=== PATIENT | male | born 1935 | race Caucasian/White ===

== ENCOUNTER 2017-01-30 21:59 | Emergency (ER) | payer MEDICARE, OTHER ==
--- NOTE | 2017-01-30 22:33 | ED ---
SOB HPI - General Chief Complaint: Shortness of Breath Stated Complaint: DIBx3 Time Seen by Provider: 01/30/17 22:15 Source: patient Mode of arrival: wheelchair Limitations: no limitations - History of Present Illness Initial Comments: This patient is an 81-year-old man brought to be evaluated for worsening of shortness of breath and dyspnea on exertion. The patient states that he has had symptoms for quite some time but it really is worsening over the past 3 days. The patient states that he has not been able to sleep well at night, and he has been having to get up after about 2-3 hours sit up in his chair, and is then unable to get back to sleep. The patient is denying any associated symptoms. He does have a bit of baseline cough with just a little bit of yellowish sputum. He has not had any fever or chills, chest pain, palpitations or syncope, diaphoresis, nausea or vomiting. Patient has not had a change in bowel movements including no bright red or dark tarry stools. No change in urination, no leg pain or swelling. MD Complaint: shortness of breath Onset/Timin -: days(s) Consistency: constant Improves With: oxygen Worsens With: nothing Known History Of: COPD Associated Symptoms: denies other symptoms Treatments Prior to Arrival: bronchodilator - Related Data Home Medications Medication Instructions Recorded Confirmed Albuterol Inhaler [Ventolin Hfa 1 - 2 puff INHALATION RT-Q6H PRN 01/30/17 Inhaler] Aspirin 325 mg PO DAILY 01/30/17 01/30/17 Atenolol 25 mg PO DAILY 01/30/17 01/30/17 Cholecalciferol [Vitamin D3] 4,000 unit PO DAILY 01/30/17 01/30/17 Lisinopril [Prinivil] 5 mg PO DAILY 01/30/17 01/30/17 Nitroglycerin Sl Tabs [Nitrostat] 0.4 mg SUBLINGUAL Q5M PRN 01/30/17 01/30/17 Simvastatin [Zocor] 20 mg PO HS 01/30/17 01/30/17 Previous Rx's Medication Instructions Recorded Furosemide [Lasix] 20 mg PO DAILY #10 tab 01/31/17 Ipratropium-Albuterol Nebulize 3 ml INHALATION Q6H #50 neb 01/31/17 [Duoneb 0.5 mg-3 mg/3 ml Soln] predniSONE 60 mg PO DAILY #30 tab 01/31/17 Allergies Allergy/AdvReac Type Severity Reaction Status Date / Time No Known Allergies Allergy Verified 01/30/17 22:49 Review of Systems ROS Statement: Those systems with pertinent positive or pertinent negative responses have been documented in the HPI. ROS Other: All systems not noted in ROS Statement are negative. Constitutional: Denies: fever, chills Respiratory: Reports: cough, dyspnea, wheezes. Denies: hemoptysis, stridor Cardiovascular: Reports: dyspnea on exertion. Denies: chest pain, palpitations , orthopnea, edema, syncope Gastrointestinal: Denies: abdominal pain, vomiting, diarrhea, melena, hematochezia Genitourinary: Denies: dysuria, hematuria Musculoskeletal: Denies: back pain Skin: Denies: rash Neurological: Denies: headache, weakness, numbness Past Medical History Past Medical History: COPD, Hyperlipidemia, Hypertension, Myocardial Infarction (HI) Additional Past Medical History / Comment(s): shingles History of Any Multi-Drug Resistant Organisms: None Reported Past Surgical History: Heart Catheterization With Stent Past Psychological History: No Psychological Hx Reported Smoking Status: Former smoker Past Alcohol Use History: None Reported Past Drug Use History: None Reported General Exam Limitations: no limitations General appearance: alert, in no apparent distress, cachectic Head exam: Present: atraumatic, normocephalic Eye exam: Present: normal appearance. Absent: scleral icterus, conjunctival injection ENT exam: Present: normal oropharynx Neck exam: Present: normal inspection, full ROM Respiratory exam: Present: wheezes (Trace of end expiratory wheeze), rales ( Bilateral bases). Absent: respiratory distress, rhonchi, stridor, accessory muscle use, decreased breath sounds, prolonged expiratory Cardiovascular Exam: Present: regular rate, normal rhythm, normal heart sounds. Absent: systolic murmur, diastolic murmur, rubs, gallop GI/Abdominal exam: Present: soft. Absent: distended, tenderness, guarding, rebound, mass Extremities exam: Present: normal inspection, normal capillary refill. Absent: pedal edema, calf tenderness Back exam: Present: normal inspection Neurological exam: Present: alert Skin exam: Present: warm, dry, intact, normal color. Absent: rash Course Vital Signs 01/30/17 22:05 Temperature 96.8 F L Pulse Rate 85 Respiratory 24 Rate Blood Pressure 132/74 O2 Sat by Pulse 96 Oximetry Medical Decision Making - Lab Data Result diagrams: 01/30/17 22:36 01/30/17 22:36 Lab Results 01/30/17 01/30/17 01/30/17 Range/Units 22:36 22:36 22:36 WBC 7.2 (3.8-10.6) k/uL RBC 4.29 L (4.30-5.90) m/uL Hgb 13.6 (13.0-17.5) gm/dL Hct 41.1 (39.0-53.0) % MCV 95.8 (80.0-100.0) fL MCH 31.7 (25.0-35.0) pg MCHC 33.1 (31.0-37.0) g/dL RDW 12.9 (11.5-15.5) % Plt Count 356 (150-450) k/uL Neutrophils % 64 % Lymphocytes % 17 % Monocytes % 11 % Eosinophils % 4 % Basophils % 1 % Neutrophils # 4.6 (1.3-7.7) k/uL Lymphocytes # 1.2 (1.0-4.8) k/uL Monocytes # 0.8 (0-1.0) k/uL Eosinophils # 0.3 (0-0.7) k/uL Basophils # 0.0 (0-0.2) k/uL PT 10.4 (9.0-12.0) sec INR 1.0 (<1.1) APTT 25.1 (22.0-30.0) sec D-Dimer 0.81 H (<0.60) mg/L FEU Sample Site ABG pH (7.35-7.45) ABG pCO2 (35-45) mmHg ABG pO2 (83-108) mmHg ABG HCO3 (21-25) mmol/L ABG Total CO2 (19-24) mmol/L ABG O2 Saturation (94-97) % ABG Base Excess mmol/L FiO2 % Sodium 144 (137-145) mmol/L Potassium 4.2 (3.5-5.1) mmol/L Chloride 101 (98-107) mmol/L Carbon Dioxide 32 H (22-30) mmol/L Anion Gap 11 mmol/L BUN 21 H (9-20) mg/dL Creatinine 1.30 H (0.66-1.25) mg/dL Est GFR (MDRD) Af Amer >60 (>60 ml/min/1.73 sqM) Est GFR (MDRD) Non-Af 53 (>60 ml/min/1.73 sqM) Glucose 97 (74-99) mg/dL Calcium 8.9 (8.4-10.2) mg/dL Total Bilirubin 0.6 (0.2-1.3) mg/dL AST 26 (17-59) U/L ALT 29 (21-72) U/L Alkaline Phosphatase 57 (38-126) U/L Troponin I (0.000-0.034) ng/mL NT-Pro-B Natriuret Pep pg/mL Total Protein 6.7 (6.3-8.2) g/dL Albumin 4.0 (3.5-5.0) g/dL Influenza Type A RNA (Not Detectd) Influenza Type B (PCR) (Not Detectd) 01/30/17 01/30/17 01/30/17 Range/Units 22:36 22:36 22:36 WBC (3.8-10.6) k/uL RBC (4.30-5.90) m/uL Hgb (13.0-17.5) gm/dL Hct (39.0-53.0) % MCV (80.0-100.0) fL MCH (25.0-35.0) pg MCHC (31.0-37.0) g/dL RDW (11.5-15.5) % Plt Count (150-450) k/uL Neutrophils % % Lymphocytes % % Monocytes % % Eosinophils % % Basophils % % Neutrophils # (1.3-7.7) k/uL Lymphocytes # (1.0-4.8) k/uL Monocytes # (0-1.0) k/uL Eosinophils # (0-0.7) k/uL Basophils # (0-0.2) k/uL PT (9.0-12.0) sec INR (<1.1) APTT (22.0-30.0) sec D-Dimer (<0.60) mg/L FEU Sample Site ABG pH (7.35-7.45) ABG pCO2 (35-45) mmHg ABG pO2 (83-108) mmHg ABG HCO3 (21-25) mmol/L ABG Total CO2 (19-24) mmol/L ABG O2 Saturation (94-97) % ABG Base Excess mmol/L FiO2 % Sodium (137-145) mmol/L Potassium (3.5-5.1) mmol/L Chloride (98-107) mmol/L Carbon Dioxide (22-30) mmol/L Anion Gap mmol/L BUN (9-20) mg/dL Creatinine (0.66-1.25) mg/dL Est GFR (MDRD) Af Amer (>60 ml/min/1.73 sqM) Est GFR (MDRD) Non-Af (>60 ml/min/1.73 sqM) Glucose (74-99) mg/dL Calcium (8.4-10.2) mg/dL Total Bilirubin (0.2-1.3) mg/dL AST (17-59) U/L ALT (21-72) U/L Alkaline Phosphatase (38-126) U/L Troponin I <0.012 (0.000-0.034) ng/mL NT-Pro-B Natriuret Pep 818 pg/mL Total Protein (6.3-8.2) g/dL Albumin (3.5-5.0) g/dL Influenza Type A RNA Not Detected (Not Detectd) Influenza Type B (PCR) Not Detected (Not Detectd) 01/30/17 Range/Units 23:07 WBC (3.8-10.6) k/uL RBC (4.30-5.90) m/uL Hgb (13.0-17.5) gm/dL Hct (39.0-53.0) % MCV (80.0-100.0) fL MCH (25.0-35.0) pg MCHC (31.0-37.0) g/dL RDW (11.5-15.5) % Plt Count (150-450) k/uL Neutrophils % % Lymphocytes % % Monocytes % % Eosinophils % % Basophils % % Neutrophils # (1.3-7.7) k/uL Lymphocytes # (1.0-4.8) k/uL Monocytes # (0-1.0) k/uL Eosinophils # (0-0.7) k/uL Basophils # (0-0.2) k/uL PT (9.0-12.0) sec INR (<1.1) APTT (22.0-30.0) sec D-Dimer (<0.60) mg/L FEU Sample Site R RADIAL ABG pH 7.46 H (7.35-7.45) ABG pCO2 39 (35-45) mmHg ABG pO2 102 (83-108) mmHg ABG HCO3 28 H (21-25) mmol/L ABG Total CO2 29 H (19-24) mmol/L ABG O2 Saturation 98.0 H (94-97) % ABG Base Excess 3.9 mmol/L FiO2 28 % Sodium (137-145) mmol/L Potassium (3.5-5.1) mmol/L Chloride (98-107) mmol/L Carbon Dioxide (22-30) mmol/L Anion Gap mmol/L BUN (9-20) mg/dL Creatinine (0.66-1.25) mg/dL Est GFR (MDRD) Af Amer (>60 ml/min/1.73 sqM) Est GFR (MDRD) Non-Af (>60 ml/min/1.73 sqM) Glucose (74-99) mg/dL Calcium (8.4-10.2) mg/dL Total Bilirubin (0.2-1.3) mg/dL AST (17-59) U/L ALT (21-72) U/L Alkaline Phosphatase (38-126) U/L Troponin I (0.000-0.034) ng/mL NT-Pro-B Natriuret Pep pg/mL Total Protein (6.3-8.2) g/dL Albumin (3.5-5.0) g/dL Influenza Type A RNA (Not Detectd) Influenza Type B (PCR) (Not Detectd) - EKG Data -: EKG Interpreted by Me EKG shows normal: sinus rhythm (With PVC), intervals (Normal), QRS complexes ( Normal) Rate: normal (Rate approximate 74 bpm) Interpretation: other (Biatrial enlargement) Disposition Clinical Impression: Acute exacerbation of chronic obstructive airways disease Disposition: HOME SELF-CARE Condition: Fair Instructions: COPD (Chronic Obstructive Pulmonary Disease) (ED) Prescriptions: Furosemide [Lasix] 20 mg PO DAILY #10 tab Ipratropium-Albuterol Nebulize [Duoneb 0.5 mg-3 mg/3 ml Soln] 3 ml INHALATION Q6H #50 neb predniSONE 60 mg PO DAILY #30 tab Referrals: Shorty Desai MD [Primary Care Provider] - 1-2 days James Barr MD [STAFF PHYSICIAN] - 1-2 days
[2017-01-30 22:57] LABS: Basophils % (A) 1 %; CHCM 33.5; Eosinophils # (A) 0.3 k/uL (0-0.7); Eosinophils % (A) 4 %; HCT 41.1 % (39.0-53.0); HGB 13.6 gm/dL (13.0-17.5); Luc # (Auto) 0.24; Luc % (Auto) 3; Lymphocytes # (A) 1.2 k/uL (1.0-4.8); Lymphocytes % (A) 17 %; MCH 31.7 pg (25.0-35.0); MCHC 33.1 g/dL (31.0-37.0); MCV 95.8 fL (80.0-100.0); Mean Platelet Volume 6.8; Monocytes # (A) 0.8 k/uL (0-1.0); Monocytes % (A) 11 %; Neutrophils # (A) 4.6 k/uL (1.3-7.7); Neutrophils % (A) 64 %; RBC 4.29 m/uL (4.30-5.90); RDW 12.9 % (11.5-15.5); WBC 7.2 k/uL (3.8-10.6)
[2017-01-30 23:06] LABS: ALT 29 U/L (21-72); AST 26 U/L (17-59); Alkaline Phosphatase 57 U/L (38-126); Anion Gap 11 mmol/L; Blood Urea Nitrogen 21 mg/dL (9-20); Calcium 8.9 mg/dL (8.4-10.2); Carbon Dioxide 32 mmol/L (22-30); Chloride 101 mmol/L (98-107); Glucose 97 mg/dL (74-99); Non-African American GFR(MDRD) 53 (>60 ml/min/1.73 sqM); Potassium 4.2 mmol/L (3.5-5.1); Sodium 144 mmol/L (137-145); Total Bilirubin 0.6 mg/dL (0.2-1.3); Total Protein 6.7 g/dL (6.3-8.2)
[2017-01-30 23:10] LABS: Partial Thromboplastin Time 25.1 sec (22.0-30.0); Prothrombin Time 10.4 sec (9.0-12.0)
--- NOTE | 2017-01-30 23:12 | XR ---
EXAMINATION TYPE: XR chest 2V DATE OF EXAM: 01/30/2017 11:00 PM COMPARISON: 08/20/2010 HISTORY: Difficulty breathing TECHNIQUE: Frontal and lateral views of the chest are obtained. FINDINGS: There is pulmonary hyperinflation and flattening of the diaphragm. Heart size is normal. T here are no hilar masses. Lung apices are clear. There are chest leads. There is osteopenia. IMPRESSION: COPD. No acute lung disease. No change.
[2017-01-30 23:15] LABS: ABG HCO3 28 mmol/L (21-25); ABG PCO2 39 mmHg (35-45); ABG PH 7.46 (7.35-7.45); ABG PO2 102 mmHg (83-108); ABG TCO2 29 mmol/L (19-24)
[2017-01-30 23:16] LABS: ABG Base Excess 3.9 mmol/L
[2017-01-31] MEDS ORDERED: methylPREDNISolone SOD SUCCI 125 MG/2 ML VIAL IV STA (00:12)
[2017-01-31] MEDS ORDERED: FUROSEMIDE 20 MG TAB PO STA (00:23)
[2017-01-31 00:54] VITALS: BP 169/74; PULSE 70; RESP 22; TEMP 97.4
== END 2017-01-31 00:57 | disposition home or self-care (01) ==
LOC: EC 21:59
DX: J44.1 Chronic obstructive pulmonary disease with (acute) exacerbation (principal); I10 Essential (primary) hypertension; E78.5 Hyperlipidemia, unspecified; I25.2 Old myocardial infarction; Z87.891 Personal history of nicotine dependence; Z79.82 Long term (current) use of aspirin; Z79.899 Other long term (current) drug therapy; Z95.5 Presence of coronary angioplasty implant and graft
CPT/HCPCS: 99285 ×2; 96374 ×2; 36415; 36600; 93005; 85379; 83880; 80053; 82805; 84484; 85025; 85610; 85730; 87502; 71020; J2930

== ENCOUNTER 2017-05-24 18:25 | Inpatient (IN) | payer MEDICARE, OTHER ==
--- NOTE | 2017-05-24 18:40 | ED ---
General Adult HPI - General Chief complaint: Shortness of Breath Stated complaint: DINESH Time Seen by Provider: 05/24/17 18:40 Source: patient, RN notes reviewed, old records reviewed Mode of arrival: wheelchair Limitations: no limitations - History of Present Illness Initial comments: This is a 81-year-old male to the ER for evaluation. This patient presents for evaluation regarding shortness of breath, patient has shortness of breath with cough and congestion, exertional shortness of breath. History of COPD history of heart disease. Patient denies recent consultation no fevers no chest pain. Patient states his power went out last night and he was unable to use his oxygen which she does use 24 hours a day he woke up in severe respiratory distress and shortness of breath with proctored symptoms have improved mildly but not resolved. Patient is doing. She rates the medications as directed, mild improvement - Related Data Home Medications Medication Instructions Recorded Confirmed Albuterol Inhaler [Ventolin Hfa 1 - 2 puff INHALATION RT-Q6H PRN 01/30/17 Inhaler] Aspirin 325 mg PO DAILY 01/30/17 05/24/17 Atenolol 12.5 mg PO DAILY 01/30/17 05/24/17 Cholecalciferol [Vitamin D3] 2,000 unit PO DAILY 01/30/17 05/24/17 Lisinopril [Prinivil] 5 mg PO DAILY 01/30/17 05/24/17 Nitroglycerin Sl Tabs [Nitrostat] 0.4 mg SUBLINGUAL Q5M PRN 01/30/17 05/24/17 Simvastatin [Zocor] 20 mg PO HS 01/30/17 05/24/17 Budesonide [Pulmicort] 0.5 mg INHALATION RT-BID PRN 05/24/17 05/24/17 Fluticasone Nasal [place] [Flonase 1 spray EA NOSTRIL DAILY PRN 05/24/17 05/24/17 Nasal [place]] Formoterol Fumarate [Perforomist] 20 mcg INHALATION RT-BID PRN 05/24/17 05/24/17 Loratadine [Claritin] 10 mg PO DAILY PRN 05/24/17 05/24/17 Umeclidinium [place] [Incruse 1 puff INHALATION RT-DAILY PRN 05/24/17 05/24/17 Ellipta] Allergies Allergy/AdvReac Type Severity Reaction Status Date / Time No Known Allergies Allergy Verified 05/24/17 19:00 Review of Systems ROS Statement: Those systems with pertinent positive or pertinent negative responses have been documented in the HPI. ROS Other: All systems not noted in ROS Statement are negative. Past Medical History Past Medical History: COPD, Hyperlipidemia, Hypertension, Myocardial Infarction (PR) Additional Past Medical History / Comment(s): shingles History of Any Multi-Drug Resistant Organisms: None Reported Past Surgical History: Heart Catheterization With Stent Past Psychological History: No Psychological Hx Reported Smoking Status: Former smoker Past Alcohol Use History: None Reported Past Drug Use History: None Reported General Exam Limitations: no limitations General appearance: alert, in no apparent distress Head exam: Present: atraumatic, normocephalic, normal inspection Eye exam: Present: normal appearance, PERRL, EOMI. Absent: scleral icterus, conjunctival injection, periorbital swelling ENT exam: Present: normal exam, mucous membranes moist Neck exam: Present: normal inspection. Absent: tenderness, meningismus, lymphadenopathy Respiratory exam: Present: normal lung sounds bilaterally, respiratory distress , wheezes, accessory muscle use, decreased breath sounds, prolonged expiratory. Absent: rales, rhonchi, stridor Cardiovascular Exam: Present: regular rate, normal rhythm, normal heart sounds. Absent: systolic murmur, diastolic murmur, rubs, gallop, clicks GI/Abdominal exam: Present: soft, normal bowel sounds. Absent: distended, tenderness, guarding, rebound, rigid Extremities exam: Present: normal inspection, full ROM, normal capillary refill. Absent: tenderness, pedal edema, joint swelling, calf tenderness Back exam: Present: normal inspection Neurological exam: Present: alert, oriented X3, CN II-XII intact Psychiatric exam: Present: normal affect, normal mood Skin exam: Present: warm, dry, intact, normal color. Absent: rash Course Vital Signs 05/24/17 05/24/17 05/24/17 18:27 19:00 19:37 Temperature 97.0 F L Pulse Rate 67 66 62 Respiratory 18 Rate Blood Pressure 88/53 100/57 O2 Sat by Pulse 90 L 100 Oximetry 05/24/17 19:54 Temperature Pulse Rate 60 Respiratory Rate Blood Pressure O2 Sat by Pulse Oximetry - Reevaluation(s) Reevaluation #1: 05/24/17 19:34 Patient does have great results with prolonged breathing treatment Reevaluation #2: 05/24/17 20:20 Patient continues to deny any chest pain, admitted to chest tightness upon arrival to ER EKG Findings - EKG Comments: EKG Findings:: EKG shows sinus rhythm rate of 60, DC 166, QRS 92, QTc 442 Medical Decision Making - Medical Decision Making 81 male in the ER for evaluation regarding severe shortness of breath at night with diaphoresis. Patient does have elevated troponin non-ST elevated PR and as well as COPD with hypoxia, patient will be admitted for cardiopulmonary resuscitation and hemodynamic monitoring. - Lab Data Result diagrams: 05/24/17 18:53 05/24/17 18:53 Lab Results 05/24/17 05/24/17 05/24/17 Range/Units 18:53 18:53 18:53 WBC 11.7 H (3.8-10.6) k/uL RBC 4.11 L (4.30-5.90) m/uL Hgb 13.4 (13.0-17.5) gm/dL Hct 39.9 (39.0-53.0) % MCV 97.0 (80.0-100.0) fL MCH 32.5 (25.0-35.0) pg MCHC 33.5 (31.0-37.0) g/dL RDW 12.9 (11.5-15.5) % Plt Count 380 (150-450) k/uL Neutrophils % 82 % Lymphocytes % 10 % Monocytes % 6 % Eosinophils % 0 % Basophils % 1 % Neutrophils # 9.6 H (1.3-7.7) k/uL Lymphocytes # 1.2 (1.0-4.8) k/uL Monocytes # 0.7 (0-1.0) k/uL Eosinophils # 0.0 (0-0.7) k/uL Basophils # 0.1 (0-0.2) k/uL PT (9.0-12.0) sec INR (<1.1) APTT (22.0-30.0) sec Sodium 142 (137-145) mmol/L Potassium 4.9 (3.5-5.1) mmol/L Chloride 100 (98-107) mmol/L Carbon Dioxide 30 (22-30) mmol/L Anion Gap 12 mmol/L BUN 32 H (9-20) mg/dL Creatinine 0.98 (0.66-1.25) mg/dL Est GFR (MDRD) Af Amer >60 (>60 ml/min/1.73 sqM) Est GFR (MDRD) Non-Af >60 (>60 ml/min/1.73 sqM) Glucose 113 H (74-99) mg/dL Calcium 9.7 (8.4-10.2) mg/dL Magnesium 2.1 (1.6-2.3) mg/dL Total Bilirubin 0.8 (0.2-1.3) mg/dL AST 113 H (17-59) U/L ALT 73 H (21-72) U/L Alkaline Phosphatase 53 (38-126) U/L Total Creatine Kinase 428 H (55-170) U/L CK-MB (CK-2) 61.6 H* (0.0-2.4) ng/mL CK-MB (CK-2) Rel Index 14.4 Troponin I 4.540 H* (0.000-0.034) ng/mL NT-Pro-B Natriuret Pep pg/mL Total Protein 6.9 (6.3-8.2) g/dL Albumin 4.2 (3.5-5.0) g/dL 05/24/17 05/24/17 Range/Units 18:53 18:53 WBC (3.8-10.6) k/uL RBC (4.30-5.90) m/uL Hgb (13.0-17.5) gm/dL Hct (39.0-53.0) % MCV (80.0-100.0) fL MCH (25.0-35.0) pg MCHC (31.0-37.0) g/dL RDW (11.5-15.5) % Plt Count (150-450) k/uL Neutrophils % % Lymphocytes % % Monocytes % % Eosinophils % % Basophils % % Neutrophils # (1.3-7.7) k/uL Lymphocytes # (1.0-4.8) k/uL Monocytes # (0-1.0) k/uL Eosinophils # (0-0.7) k/uL Basophils # (0-0.2) k/uL PT 11.2 (9.0-12.0) sec INR 1.1 (<1.1) APTT 25.3 (22.0-30.0) sec Sodium (137-145) mmol/L Potassium (3.5-5.1) mmol/L Chloride (98-107) mmol/L Carbon Dioxide (22-30) mmol/L Anion Gap mmol/L BUN (9-20) mg/dL Creatinine (0.66-1.25) mg/dL Est GFR (MDRD) Af Amer (>60 ml/min/1.73 sqM) Est GFR (MDRD) Non-Af (>60 ml/min/1.73 sqM) Glucose (74-99) mg/dL Calcium (8.4-10.2) mg/dL Magnesium (1.6-2.3) mg/dL Total Bilirubin (0.2-1.3) mg/dL AST (17-59) U/L ALT (21-72) U/L Alkaline Phosphatase (38-126) U/L Total Creatine Kinase (55-170) U/L CK-MB (CK-2) (0.0-2.4) ng/mL CK-MB (CK-2) Rel Index Troponin I (0.000-0.034) ng/mL NT-Pro-B Natriuret Pep 4680 pg/mL Total Protein (6.3-8.2) g/dL Albumin (3.5-5.0) g/dL - Radiology Data Radiology results: report reviewed (Chest x-ray is negative for acute disease), image reviewed Critical Care Time Critical Care Time: Yes Total Critical Care Time: 31 Disposition Clinical Impression: NSTEMI (non-ST elevated myocardial infarction), COPD with hypoxia Disposition: ADMITTED IP TO THIS HOSP Condition: Serious Referrals: Shorty Desai MD [Primary Care Provider] - 1-2 days
[2017-05-24] MEDS ORDERED: ALBUTEROL NEBULIZED 2.5 MG/3 ML INHALATION STA (18:41)
[2017-05-24] MEDS ORDERED: methylPREDNISolone SOD SUCCI 125 MG/2 ML VIAL IV STA (18:41)
[2017-05-24] MEDS ORDERED: SODIUM CHLORIDE 0.9% 1,000 ML IV STA (18:41)
[2017-05-24] MEDS ORDERED: IPRATROPIUM 0.5 MG/2.5 ML NEBU INHALATION STA (18:41)
[2017-05-24 19:15] LABS: Basophils # (A) 0.1 k/uL (0-0.2); Basophils % (A) 1 %; CH 32.5; CHCM 33.6; Eosinophils % (A) 0 %; HCT 39.9 % (39.0-53.0); HDW 2.32; HGB 13.4 gm/dL (13.0-17.5); Luc # (Auto) 0.16; Luc % (Auto) 1; Lymphocytes # (A) 1.2 k/uL (1.0-4.8); Lymphocytes % (A) 10 %; MCH 32.5 pg (25.0-35.0); MCHC 33.5 g/dL (31.0-37.0); Mean Platelet Volume 7.9; Monocytes # (A) 0.7 k/uL (0-1.0); Monocytes % (A) 6 %; Neutrophils # (A) 9.6 k/uL (1.3-7.7); Neutrophils % (A) 82 %; RBC 4.11 m/uL (4.30-5.90); RDW 12.9 % (11.5-15.5); WBC 11.7 k/uL (3.8-10.6); WBC (Perox) 11.67
[2017-05-24 19:24] LABS: ALT 73 U/L (21-72); AST 113 U/L (17-59); Alkaline Phosphatase 53 U/L (38-126); Anion Gap 12 mmol/L; Blood Urea Nitrogen 32 mg/dL (9-20); Calcium 9.7 mg/dL (8.4-10.2); Carbon Dioxide 30 mmol/L (22-30); Chloride 100 mmol/L (98-107); Glucose 113 mg/dL (74-99); Magnesium 2.1 mg/dL (1.6-2.3); Non-African American GFR(MDRD) >60 (>60 ml/min/1.73 sqM); Potassium 4.9 mmol/L (3.5-5.1); Sodium 142 mmol/L (137-145); Total Bilirubin 0.8 mg/dL (0.2-1.3); Total Protein 6.9 g/dL (6.3-8.2)
--- NOTE | 2017-05-24 19:29 | XR ---
EXAMINATION TYPE: XR chest 1V portable DATE OF EXAM: 05/24/2017 COMPARISON: 01/30/2017 HISTORY: Chest pain TECHNIQUE: Single frontal view of the chest is obtained. FINDINGS: There is no heart failure nor pneumonic infiltrate. Thoracic aorta is atheromatous. There is mild pulmonary hyperinflation. Heart size is normal. Bony thorax appears intact. IMPRESSION: COPD. No acute lung disease. No change.
[2017-05-24 19:33] LABS: INR 1.1 (<1.1); Partial Thromboplastin Time 25.3 sec (22.0-30.0); Prothrombin Time 11.2 sec (9.0-12.0)
[2017-05-24 19:51] LABS: Creatine Kinase MB 61.6 ng/mL (0.0-2.4); Troponin I 4.54 ng/mL (0.000-0.034)
[2017-05-24] MEDS ORDERED: NITROGLYCERIN SL TABS 0.4 MG TAB SUBLINGUAL PRN (19:58)
[2017-05-24] MEDS ORDERED: HEPARIN SODIUM,PORCINE 5,000 UNIT/ML 1 ML VIAL IV ONE (19:58)
[2017-05-24] MEDS ORDERED: ASPIRIN 81 MG CHEW PO STA (20:13)
[2017-05-24] MEDS ORDERED: HEPARIN SODIUM,PORCINE 5,000 UNIT/ML 1 ML VIAL IV PRN (20:13)
[2017-05-24] MEDS ORDERED: IPRATROPIUM-ALBUTEROL 3 ML NEB INHALATION STA (20:13)
[2017-05-24] MEDS ORDERED: SODIUM CHLORIDE 0.9% 1,000 ML IV SCH (20:15)
[2017-05-24] MEDS ORDERED: SODIUM CHLORIDE 0.9% 500 ML IV ONE (20:35)
[2017-05-24] MEDS ORDERED: SODIUM CHLORIDE 0.9% 1,000 ML IV ONE (20:35)
[2017-05-24] MEDS ORDERED: NITROGLYCERIN OINT 1 INCH/GM PACKET TOPICAL STA (20:36)
[2017-05-24] MEDS: HEPARIN SODIUM,PORCINE/D5W PMX 25,000 UNIT in DEXTROSE/WATER 1 500ML.BAG IV SCH (20:40)
[2017-05-24] MEDS ORDERED: MORPHINE SULFATE 4 MG/ML SYRINGE IVP PRN (20:50)
[2017-05-24] MEDS ORDERED: NITROGLYCERIN-D5W PMX 50 MG in DEXTROSE/WATER 1 250ML.BAG IV SCH (21:00)
[2017-05-24] MEDS ORDERED: METOPROLOL TARTRATE 25 MG TAB PO SCH (21:00)
[2017-05-25] MEDS ORDERED: NITROGLYCERIN OINT 1 INCH/GM PACKET TOPICAL SCH
[2017-05-25] MEDS: methylPREDNISolone SOD SUCCI 125 MG/2 ML VIAL IV SCH ×5 (00:36→23:20)
[2017-05-25 03:16] LABS: Creatine Kinase MB 61.2 ng/mL (0.0-2.4); Troponin I 4.07 ng/mL (0.000-0.034)
[2017-05-25] MEDS: IPRATROPIUM-ALBUTEROL 3 ML NEB INHALATION PRN ×3 (04:15→19:21)
[2017-05-25 05:46] LABS: Glucose,Whole Blood 162 mg/dL (75-99)
[2017-05-25] MEDS: INSULIN LISPRO (humaLOG) 300 UNIT/3 ML VIAL SQ SCH ×4 (06:33→20:51)
[2017-05-25 07:46] LABS: Mean Platelet Volume 7.4
[2017-05-25 08:08] LABS: Cholesterol 154 mg/dL (<200); HDL Cholesterol 70 mg/dL (40-60); Triglycerides 66 mg/dL (<150)
--- NOTE | 2017-05-25 08:13 | P.CRDCN ---
History of Present Illness Consult date: 05/25/17 Requesting physician: Chapin Davis Consult reason: chest pain Chief complaint: Chest pain History of present illness: This is a pleasant 81-year-old gentleman who follows with Dr. Camarillo in the office. He has history of prior non-Q-wave [place] with stent placement in 2009, hypertension, hyperlipidemia, COPD with home oxygen use, prior nicotine use, patient still does chew tobacco, he presents to the hospital with symptoms of chest tightness. According to the patient he uses home O2, the power went out at his home he is unsure of how long he was without oxygen, he attempted to get up to hold himself up to the portable oxygen tank and shortly thereafter developed severe chest tightness. He states he was quite short of breath and became very diaphoretic. For this reason he came to the emergency room for further evaluation. Patient has been losing weight recently, he states his appetite is the same as usual. Initial EKG on presentation here showed a normal sinus rhythm with anterior lateral ST depression. Subsequent EKG performed revealed normal sinus rhythm with mild improvement in the ST depression. Chest x-ray did not reveal any acute lung disease, positive COPD. I blood cell count 11.7, hemoglobin 13.4, potassium 4.9 , BUN 32, creatinine 0.9. AST 113, ALT 73, initial troponin 4.5, subsequent troponin 4.0. BNP level 4680. The pressure on arrival here 88/50 with a heart rate in the 60s. 90% on room air. Let pressure this morning of 113/80. At the time of my examination this morning, patient is currently on IV heparin, Nitropaste, aspirin, he was also given a dose of Solu-Medrol and continues to be on IV steroids. Past Medical History Past Medical History: COPD, Hyperlipidemia, Hypertension, Myocardial Infarction ([place]) Additional Past Medical History / Comment(s): shingles Last Myocardial Infarction Date:: 2009 History of Any Multi-Drug Resistant Organisms: None Reported Past Surgical History: Heart Catheterization With Stent Additional Past Surgical History / Comment(s): stent RCA- Dr. Skinner stented Past Anesthesia/Blood Transfusion Reactions: No Reported Reaction Date of Last Stent Placement:: 2009 Past Psychological History: No Psychological Hx Reported Smoking Status: Former smoker Past Alcohol Use History: None Reported Past Drug Use History: None Reported - Past Family History Brother(s) Family Medical History: Cancer Additional Family Medical History / Comment(s): lung CA Medications and Allergies Home Medications Medication Instructions Recorded Confirmed Type Albuterol Inhaler [Ventolin Hfa 1 - 2 puff INHALATION RT-Q6H PRN 01/30/17 History Inhaler] Aspirin 325 mg PO DAILY 01/30/17 05/24/17 History Atenolol 12.5 mg PO DAILY 01/30/17 05/24/17 History Cholecalciferol [Vitamin D3] 2,000 unit PO DAILY 01/30/17 05/24/17 History Lisinopril [Prinivil] 5 mg PO DAILY 01/30/17 05/24/17 History Nitroglycerin Sl Tabs [Nitrostat] 0.4 mg SUBLINGUAL Q5M PRN 01/30/17 05/24/17 History Simvastatin [Zocor] 20 mg PO HS 01/30/17 05/24/17 History Budesonide [Pulmicort] 0.5 mg INHALATION RT-BID PRN 05/24/17 05/24/17 History Fluticasone Nasal [place] [Flonase 1 spray EA NOSTRIL DAILY PRN 05/24/17 05/24/17 History Nasal [place]] Formoterol Fumarate [Perforomist] 20 mcg INHALATION RT-BID PRN 05/24/17 History Loratadine [Claritin] 10 mg PO DAILY PRN 05/24/17 05/24/17 History Umeclidinium [place] [Incruse 1 puff INHALATION RT-DAILY PRN 05/24/17 05/24/17 History Ellipta] Allergies Allergy/AdvReac Type Severity Reaction Status Date / Time No Known Allergies Allergy Verified 05/24/17 19:00 Physical Exam Vitals: Vital Signs Temp Pulse Pulse Resp BP BP Pulse Ox 05/25/17 04:30 96.8 F L 77 26 H 113/80 95 05/25/17 04:19 88 05/25/17 04:08 92 05/24/17 23:05 96.8 F L 74 24 113/68 99 05/24/17 22:25 74 18 105/58 97 05/24/17 22:10 74 18 105/58 100 05/24/17 21:29 76 18 106/60 100 05/24/17 21:00 77 20 109/60 100 05/24/17 20:40 68 19 114/57 99 05/24/17 20:25 80 20 95/57 99 05/24/17 20:21 60 05/24/17 19:54 60 05/24/17 19:37 62 05/24/17 19:00 66 100/57 100 05/24/17 18:27 97.0 F L 67 18 88/53 90 L Intake and Output 05/24/17 05/25/17 05/25/17 22:59 06:59 14:59 Intake Total 56.853 Output Total 300 Balance -243.147 Intake: Intake, IV Titration 56.853 Amount Heparin Sodium,Porcine/ 56.853 D5w Pmx 25,000 unit In Dextrose/Water 1 500ml. bag @ 12 UNITS/KG/HR 10. 66 mls/hr IV .Q24H [facility] Rx #:[id number] Output: Urine 300 Other: Voiding Method Toilet # Voids 1 Weight 44.452 kg 44.7 kg PHYSICAL EXAMINATION: HEENT: Head is atraumatic, normocephalic. Pupils equal, round. Neck is supple. There is elevated jugular venous pressure. HEART EXAMINATION: Heart S1, S2 normal. No murmur or gallop heard. CHEST EXAMINATION: Lungs reveal diminished air entry bilaterally. ABDOMEN: Soft, nontender. Bowel sounds are heard. No organomegaly noted. EXTREMITIES: 1+ peripheral pulses with no evidence of peripheral edema and no calf tenderness noted. NEUROLOGIC patient is awake, alert and oriented -3. . Results 05/25/17 07:26 05/24/17 18:53 Cardiac Enzymes 05/24/17 05/24/17 05/25/17 Range/Units 18:53 18:53 01:39 AST 113 H (17-59) U/L CK-MB (CK-2) 61.6 H* 61.2 H* (0.0-2.4) ng/mL Troponin I 4.540 H* 4.070 H* (0.000-0.034) ng/mL Coagulation 05/24/17 05/25/17 05/25/17 Range/Units 18:53 01:39 07:26 PT 11.2 (9.0-12.0) sec APTT 25.3 36.1 H 42.9 H (22.0-30.0) sec CBC 05/24/17 05/25/17 Range/Units 18:53 07:26 WBC 11.7 H (3.8-10.6) k/uL RBC 4.11 L (4.30-5.90) m/uL Hgb 13.4 (13.0-17.5) gm/dL Hct 39.9 (39.0-53.0) % Plt Count 380 318 (150-450) k/uL Comprehensive Metabolic Panel 05/24/17 Range/Units 18:53 Sodium 142 (137-145) mmol/L Potassium 4.9 (3.5-5.1) mmol/L Chloride 100 (98-107) mmol/L Carbon Dioxide 30 (22-30) mmol/L BUN 32 H (9-20) mg/dL Creatinine 0.98 (0.66-1.25) mg/dL Glucose 113 H (74-99) mg/dL Calcium 9.7 (8.4-10.2) mg/dL AST 113 H (17-59) U/L ALT 73 H (21-72) U/L Alkaline Phosphatase 53 (38-126) U/L Total Protein 6.9 (6.3-8.2) g/dL Albumin 4.2 (3.5-5.0) g/dL Current Medications Generic Name Dose Route Start Last Admin Trade Name Freq PRN Reason Stop Dose Admin Albuterol/Ipratropium 3 ml 05/24/17 20:13 05/25/17 04:15 Duoneb 0.5 Mg-3 Mg/3 Ml Soln INHALATION 3 ml RT-QID PRN Administration Shortness Of Breath Or Wheezing Aspirin 325 mg 05/25/17 09:00 Aspirin PO DAILY SD Heparin Sodium (Porcine) 0 unit 05/24/17 20:13 Heparin IV Q6HR PRN Low PTT Protocol Heparin Sodium/Dextrose 25,000 500 mls @ 10.66 mls/hr 05/24/17 20:15 02:00 unit/ IV Solution IV 15 units/kg/hr .Q24H SD 13.33 mls/hr Protocol Titration 12 UNITS/KG/HR Insulin Human Lispro 0 unit 05/25/17 07:30 06/29/17 06:33 Humalog SQ Not Given ACHS [facility] Protocol Methylprednisolone Sodium Succinate 60 mg 05/25/17 00:00 05/25/17 06:33 Solu-Medrol IV 60 mg Q6HR SD Administration Morphine Sulfate 4 mg 05/24/17 20:50 Morphine Sulfate (Inj) IVP Q4HR PRN Pain Nitroglycerin 0.4 mg 05/24/17 19:58 Nitrostat SUBLINGUAL Q5M PRN Chest Pain Intake and Output 05/24/17 05/25/17 05/25/17 22:59 06:59 14:59 Intake Total 56.853 Output Total 300 Balance -243.147 Intake: Intake, IV Titration 56.853 Amount Heparin Sodium,Porcine/ 56.853 D5w Pmx 25,000 unit In Dextrose/Water 1 500ml. bag @ 12 UNITS/KG/HR 10. 66 mls/hr IV .Q24H [facility] Rx #:[id number] Output: Urine 300 Other: Voiding Method Toilet # Voids 1 Weight 44.452 kg 44.7 kg 05/25/17 07:26 05/24/17 18:53 EKG Interpretations (text) EKG shows normal sinus rhythm with anterior lateral ST depression. Assessment and Plan Plan: Assessment and plan #1 non-ST elevation myocardial infarction #2 known history of coronary artery disease with prior non-STEMI and stenting of the RCA in 2009 #3 hypertension #4 hyperlipidemia #5 COPD with home O2 use #6 history of nicotine dependence, still chews tobacco. #7 mildly congestive cardiac failure, BNP level 4680 #8 mildly abnormal liver enzymes, could be secondary to congestion. Plan We will continue IV heparin and Nitropaste along with aspirin. We will start the patient on a statin. Obtain stat echocardiogram with Doppler study. Most recent echocardiogram with Doppler study was performed in January of this year which revealed normal left ventricular size and function. Patient has been advised that he may need to undergo cardiac catheterization, the risks and the benefits were explained to him, his and his daughter in detail. He is willing to proceed. Further recommendations will be based on these findings and the patient's clinical course. DNP note has been reviewed, I agree with a documented findings and plan of care. Patient was seen and examined.
[2017-05-25] MEDS ORDERED: LORATADINE 10 MG TAB PO PRN (08:20)
[2017-05-25 08:28] LABS: Creatine Kinase MB 67.5 ng/mL (0.0-2.4); Troponin I 6.23 ng/mL (0.000-0.034)
[2017-05-25 08:38] LABS: Hemoglobin A1C 5.1 % (4.2-6.1)
[2017-05-25] MEDS: BUDESONIDE 0.5 MG/2 ML NEBU INHALATION PRN ×2 (08:54→19:21)
[2017-05-25] MEDS: ASPIRIN 325 MG TAB PO SCH (09:01)
[2017-05-25] MEDS: ATORVASTATIN 40 MG TAB PO SCH (09:01)
[2017-05-25] MEDS: CHOLECALCIFEROL 1,000 UNIT TAB PO SCH (09:02)
[2017-05-25] MEDS: LISINOPRIL 5 MG TAB PO SCH (09:15)
[2017-05-25] MEDS ORDERED: ASPIRIN 325 MG TAB PO STA (10:00)
[2017-05-25] MEDS ORDERED: ALPRAZolam 0.25 MG TAB PO PRN (10:00)
[2017-05-25] MEDS ORDERED: ALPRAZolam 0.5 MG TAB PO PRN (10:00)
[2017-05-25] MEDS ORDERED: NITROGLYCERIN SL TABS 0.4 MG TAB SUBLINGUAL PRN (10:00)
[2017-05-25] MEDS ORDERED: ATORVASTATIN 80 MG TAB PO STA (10:00)
[2017-05-25] MEDS ORDERED: SODIUM CHLORIDE 0.9% 1,000 ML in EMPTY BAG 1 BAG IV ONE (10:00)
[2017-05-25] MEDS: HEPARIN SODIUM,PORCINE/D5W PMX 25,000 UNIT in DEXTROSE/WATER 1 500ML.BAG IV SCH (10:05)
[2017-05-25 10:32] VITALS: BMI 15.9
[2017-05-25] MEDS ORDERED: fentaNYL (PF) 50 MCG/ML 2 ML AMP IVP ONE (11:30)
[2017-05-25] MEDS ORDERED: MIDAZOLAM 2 MG/2 ML VIAL IVP ONE (11:30)
[2017-05-25] MEDS ORDERED: LIDOCAINE 2% INJ 20 MG/ML SQ ONE ×2 (11:32→11:33)
[2017-05-25] MEDS ORDERED: IOHEXOL 350 MG/ML 125ML BOTTLE INJ ONE (11:51)
[2017-05-25] MEDS ORDERED: RX INFO: IV CONTRAST WAS GIVEN 1 EACH MISC MISCELLANE PRN (12:00)
[2017-05-25] MEDS ORDERED: SODIUM CHLORIDE 0.9% 1,000 ML IV ONE (12:05)
--- NOTE | 2017-05-25 12:14 | P.PCN ---
Date of Procedure: 05/25/17 Preoperative Diagnosis: Non-ST elevation TX versus apical ballooning syndrome Postoperative Diagnosis: Total occlusion of the RCA and findings consistent with apical ballooning syndrome Procedure(s) Performed: Left heart catheterization Implants: Indications for Procedure: Operative Findings: Description of Procedure: HISTORY: This is a 81-year-old gentleman with history of previous inferior wall TX and stent placement of the RCA done about 7 years ago. Patient was admitted last night to the hospital with prolonged chest pain and abnormal troponin values. His EKG showed ST-T changes in the lateral leads. His echocardiogram showed extensive wall motion abnormalities involving the anteroapical and lateral perrin. It was felt that patient may have multivessel disease or apical ballooning syndrome. Patient is advised to have cardiac catheterization for definitive diagnosis. CONSENT:I have discussed the risks, benefits and alternative therapies for the above-mentioned procedure and for both sedation/analgesia as well as necessary blood product administration, if indicated, as they pertain to this patient. The patient has indicated understanding and acceptance of the risks and procedures discussed. PROCEDURE: Patient was brought to the lab in a fasting state. Patient was given some IV sedation. The right groin is infiltrated with lidocaine and right femoral artery was entered using Seldinger technique. A 6-[place] catheter was left in place and selective coronary arteriography was performed. Patient tolerated the procedure well. Femoral angiogram was performed and Angio -Seal was applied for hemostasis. No immediate complications were noted and patient was transferred to [facility] in a stable condition HEMODYNAMICS: SELECTIVE CORONARY ARTERIOGRAPHY: LEFT MAIN: Normal length and patent THE LEFT ANTERIOR DESCENDING CORONARY ARTERY: This is a fair caliber vessel and good in size, giving rise to septal and diagonal branches. The LAD and its branches are free of any significant occlusive disease THE LEFT CIRCUMFLEX AND IS CORONARY ARTERY: This is a moderate caliber vessel with mild plaque in the mid and distal portion. No Sigmund focal lesions are noted. THE RIGHT CORONARY ARTERY: This artery is totally occluded in the proximal portion within the stent. There were extensive collaterals from the left to the right. LEFT VENTRICULOGRAPHY: Not performed FINAL IMPRESSION: Total occlusion of the RCA with a mild stable disease in the left coronary system. 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 PLAN: Maximum medical therapy PROGNOSIS: Guarded
--- NOTE | 2017-05-25 12:45 | ECHOF ---
Referral Reason:assess lvf MEASUREMENTS -------- HEIGHT: 165.1 cm WEIGHT: 44.5 kg BP: IVSd: 0.8 cm (0.6 - 1.1) LVIDd: 3.7 cm (3.9 - 5.3) LVPWd: 0.9 cm (0.6 - 1.1) IVSs: 1.0 cm LVIDs: 2.6 cm LVPWs: 1.4 cm LA Diam: 3.1 cm (2.7 - 3.8) Ao Diam: 2.8 cm (2.0 - 3.7) MV EXCURSION: 18.612 mm (> 18.000) MV EF SLOPE: 133 mm/s (70 - 150) EPSS: 0.8 cm MV E Vick: 0.69 m/s MV DecT: 162 ms MV A Vick: 0.72 m/s MV E/A Ratio: 0.95 RAP: 5.00 mmHg RVSP: 56.62 mmHg FINDINGS -------- Sinus rhythm. This was a technically adequate study. There is mild concentric left ventricular hypertrophy. Overall left ventricular systolic function is moderate-severely impaired with, an EF between 30 - 35 %. Apical anterior LV wall motion is hypokinetic. Anterseptal Hypokinesis [place] Hypokinesis. Hypokinesis inferior Distal. Distal Septal Hypokinesis. The right ventricle is normal in size. The left atrial size is normal. The right atrial size is normal. There is mild aortic valve sclerosis. There is no evidence of aortic regurgitation. Mild mitral annular calcification present. Mild mitral regurgitation is present. Mild tricuspid regurgitation present. There is no evidence of pulmonary hypertension. The right ventricular systolic pressure, as measured by Doppler, is 56.62mmHg. Trace/mild (physiologic) pulmonic regurgitation. The aortic root size is normal. There is no pericardial effusion. CONCLUSIONS -------- 1. There is mild concentric left ventricular hypertrophy. 2. Mild mitral regurgitation is present. 3. Mild tricuspid regurgitation present. 4. There is no evidence of pulmonary hypertension. 5. The right ventricular systolic pressure, as measured by Doppler, is 56.62mmHg. 6. Trace/mild (physiologic) pulmonic regurgitation. 7. The aortic root size is normal. 8. There is no pericardial effusion. 9. Overall left ventricular systolic function is moderate-severely impaired with, an EF between 30 - 35 %. 10. Apical anterior LV wall motion is hypokinetic. 11. Anterseptal Hypokinesis 12. [place] Hypokinesis. 13. Hypokinesis inferior Distal. 14. Distal Septal Hypokinesis. 15. There is mild aortic valve sclerosis. 16. Mild mitral annular calcification present. GREEN HIDE INSPECTOR: Abi Harvey RDCS
[2017-05-25] MEDS: SODIUM CHLORIDE 0.9% 1,000 ML IV SCH (13:03)
[2017-05-25] MEDS: ATENOLOL 12.5 MG TAB PO SCH (13:12)
[2017-05-25] MEDS: FUROSEMIDE 10 MG/ML 2 ML VIAL IV SCH (13:15)
[2017-05-25 13:28] LABS: Glucose,Whole Blood 105 mg/dL (75-99)
--- NOTE | 2017-05-25 14:58 | P.CNPUL ---
History of Present Illness Consult date: 05/25/17 Reason for consult: dyspnea, COPD History of present illness: 81-year-old male patient, known having advanced COPD with chronic hypoxic respiratory failure maintained a combination of Pulmicort, Perforomist and Incrus along with long-term oxygen therapy, came into the hospital yesterday after having some difficulties with chest discomfort. Apparently the patient was at home and he had a power failure. He was off oxygen for quite some time. At that point he started having increased chest tightness and chest discomfort and he became progressively more short of breath and diaphoretic. For that reason he came into the hospital and there was a concern of him having a coronary event knowing that he has an underlying coronary artery disease with a prior myocardial infarction and a non-Q-wave [place] for which she had a stent placed in 2009. He is also known to have hypertension and hyperlipidemia along with his COPD and coronary artery disease. His initial EKG showed normal sinus rhythm with some ST segment depression. Chest x-ray was consistent with COPD and hyperinflation. The proBNP level was 4680 and a troponin was positive with a highest level being at 4.5. Based on that, the patient was started on IV heparin and the patient was also given accommodation of DuoNeb, Nitropaste and aspirin. 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 There was also findings consistent with apical ballooning syndrome. Recommendations were medical treatment. The echocardiogram was also done that showed moderate severe impaired LV function with an ejection fraction of 30-35% and there was no evidence of any valvular disruption other than mild MR, mild AST, apical hypokinesis, anteroseptal hypokinesis, secondary pulmonary hypertension with a PA pressure of around 56. The patient is currently calm and comfortable resting in bed. No magistral distress. Minimal congested cough without any significant sputum production. He is free of any chest pain for now. The patient is being diuresis gently and is receiving Lasix 20 mg IV on a daily basis. He is started on IV Solu-Medrol. He is on DuoNeb nebulized treatment [id number] and combination with Pulmicort Review of Systems All systems: negative Constitutional: Denies chills, Denies fever Eyes: denies blurred vision, denies pain Ears, nose, mouth and throat: Denies headache, Denies sore throat Cardiovascular: Denies chest pain, Denies shortness of breath Respiratory: Denies cough Gastrointestinal: Denies abdominal pain, Denies diarrhea, Denies nausea, Denies vomiting Musculoskeletal: Denies myalgias Integumentary: Denies pruritus, Denies rash Neurological: Denies numbness, Denies weakness Psychiatric: Denies anxiety, Denies depression Endocrine: Denies fatigue, Denies weight change Past Medical History Past Medical History: COPD, Hyperlipidemia, Hypertension, Myocardial Infarction ([place]) Additional Past Medical History / Comment(s): COPD, chronic hypoxic respiratory failure, chronic cachexia, hypertension, hyperlipidemia, previous non-Q-wave [place] with coronary stenting, congestion heart failure with an ejection fraction of 30 -35%, secondary pulmonary hypertension, shingles Last Myocardial Infarction Date:: 2009 History of Any Multi-Drug Resistant Organisms: None Reported Past Surgical History: Heart Catheterization With Stent Additional Past Surgical History / Comment(s): stent RCA- Dr. Skinner stented Past Anesthesia/Blood Transfusion Reactions: No Reported Reaction Date of Last Stent Placement:: 2009 Past Psychological History: No Psychological Hx Reported Smoking Status: Former smoker Past Alcohol Use History: None Reported Past Drug Use History: None Reported - Past Family History Brother(s) Family Medical History: Cancer Additional Family Medical History / Comment(s): lung CA Medications and Allergies Home Medications Medication Instructions Recorded Confirmed Type Albuterol Inhaler [Ventolin Hfa 1 - 2 puff INHALATION RT-Q6H PRN 01/30/17 History Inhaler] Aspirin 325 mg PO DAILY 01/30/17 05/24/17 History Atenolol 12.5 mg PO DAILY 01/30/17 05/24/17 History Cholecalciferol [Vitamin D3] 2,000 unit PO DAILY 01/30/17 05/24/17 History Lisinopril [Prinivil] 5 mg PO DAILY 01/30/17 05/24/17 History Nitroglycerin Sl Tabs [Nitrostat] 0.4 mg SUBLINGUAL Q5M PRN 01/30/17 05/24/17 History Simvastatin [Zocor] 20 mg PO HS 01/30/17 05/24/17 History Budesonide [Pulmicort] 0.5 mg INHALATION RT-BID PRN 05/24/17 05/24/17 History Fluticasone Nasal [place] [Flonase 1 spray EA NOSTRIL DAILY PRN 05/24/17 05/24/17 History Nasal [place]] Formoterol Fumarate [Perforomist] 20 mcg INHALATION RT-BID PRN 05/24/17 History Loratadine [Claritin] 10 mg PO DAILY PRN 05/24/17 05/24/17 History Umeclidinium [place] [Incruse 1 puff INHALATION RT-DAILY PRN 05/24/17 05/24/17 History Ellipta] Allergies Allergy/AdvReac Type Severity Reaction Status Date / Time No Known Allergies Allergy Verified 05/24/17 19:00 Physical Exam Vitals: Vital Signs Temp Pulse Pulse Resp BP BP Pulse Ox 05/25/17 13:15 96.9 F L 20 96/67 99 05/25/17 09:08 88 05/25/17 08:57 80 95 05/25/17 08:00 96.8 F L 75 16 105/78 96 05/25/17 04:30 96.8 F L 77 26 H 113/80 95 05/25/17 04:19 88 05/25/17 04:08 92 05/24/17 23:05 96.8 F L 74 24 113/68 99 05/24/17 22:25 74 18 105/58 97 05/24/17 22:10 74 18 105/58 100 05/24/17 21:29 76 18 106/60 100 05/24/17 21:00 77 20 109/60 100 05/24/17 20:40 68 19 114/57 99 05/24/17 20:25 80 20 95/57 99 05/24/17 20:21 60 05/24/17 19:54 60 05/24/17 19:37 62 05/24/17 19:00 66 100/57 100 05/24/17 18:27 97.0 F L 67 18 88/53 90 L Intake and Output 05/24/17 05/25/17 05/25/17 22:59 06:59 14:59 Intake Total 56.853 207.751 Output Total 300 Balance -243.147 207.751 Intake: IV 100 Intake, IV Titration 56.853 107.751 Amount Heparin Sodium,Porcine/ 56.853 107.751 D5w Pmx 25,000 unit In Dextrose/Water 1 500ml. bag @ 12 UNITS/KG/HR 10. 66 mls/hr IV .Q24H [facility] Rx #:[id number] Output: Urine 300 Other: Voiding Method Toilet # Voids 1 Weight 44.452 kg 44.7 kg 44.7 kg Patient Weight 05/26/17 06:59 Weight 44.7 kg Thin and frail elderly male patient nonacute distress resting comfortably in bed.Head exam was generally normal. There was no scleral icterus or corneal arcus. Mucous membranes were moist.Neck was supple and without jugular venous distension, thyromegaly, or carotid bruits. Carotids were easily palpable bilaterally. There was no adenopathy. Examination of the lungs shows that the patient has a barrel chest. The patient has marked diminished breath sounds bilaterally specially in the lung bases. Scattered rhonchi. Scattered expiratory wheezes are also appreciated.Cardiac exam revealed the PMI to be normally situated and sized. The rhythm was regular and no extrasystoles were noted during several minutes of auscultation. The first and second heart sounds were normal and physiologic splitting of the second heart sound was noted. There were no murmurs, rubs, clicks, or gallops.Abdominal exam revealed normal bowel sounds. The abdomen was soft, non-tender, and without masses, organomegaly , or appreciable enlargement of the abdominal aorta.Examination of the extremities revealed easily palpable radial, femoral and pedal pulses. There was no cyanosis, clubbing or edema. Results - Laboratory Findings CBC and BMP: 05/25/17 07:26 05/24/17 18:53 PT/INR, D-dimer PT 11.2 sec (9.0-12.0) 05/24/17 18:53 INR 1.1 (<1.1) 05/24/17 18:53 Abnormal lab findings: Abnormal Labs 05/24/17 05/24/17 05/24/17 18:53 18:53 18:53 WBC 11.7 H RBC 4.11 L Neutrophils # 9.6 H APTT BUN 32 H Glucose 113 H POC Glucose (mg/dL) AST 113 H ALT 73 H Total Creatine Kinase 428 H CK-MB (CK-2) 61.6 H* Troponin I 4.540 H* HDL Cholesterol 05/25/17 05/25/17 05/25/17 01:39 01:39 05:45 WBC RBC Neutrophils # APTT 36.1 H BUN Glucose POC Glucose (mg/dL) 162 H AST ALT Total Creatine Kinase 463 H CK-MB (CK-2) 61.2 H* Troponin I 4.070 H* HDL Cholesterol 05/25/17 05/25/17 05/25/17 07:26 07:26 07:26 WBC RBC Neutrophils # APTT 42.9 H BUN Glucose POC Glucose (mg/dL) AST ALT Total Creatine Kinase 554 H CK-MB (CK-2) 67.5 H* Troponin I 6.230 H* HDL Cholesterol 70 H 05/25/17 13:24 WBC RBC Neutrophils # APTT BUN Glucose POC Glucose (mg/dL) 105 H AST ALT Total Creatine Kinase CK-MB (CK-2) Troponin I HDL Cholesterol - Diagnostic Findings Chest x-ray: image reviewed Assessment and Plan Plan: Assessment 1 acute non-ST segment elevation myocardial infarction, status post cardiac catheterization findings showing total occlusion of the RCA with a stable disease in the left coronary system and presence of apical ballooning. Currently the patient is fairly of any chest pain. No coronary intervention was recommended and the patient will receive maximal medical therapy. 2 advanced COPD with chronic hypoxic respiratory failure, with a component of an acute COPD exacerbation with secondary shortness of breath 3 chronic hypoxic respiratory failure and the patient had a power failure at home and he was off oxygen for quite some time and exact duration is unknown 4 CHF with an ejection fraction of 30-35% and secondary pulmonary hypertension 5 hypertension 6 hyperlipidemia 7 cachexia 8 shingles, history of Plan Continue same bronchodilators. Continue the systemic steroids. Chest x-ray shows chronic findings and there is no evidence of any acute pneumonia. There is no evidence of failure at this point. Gentle diuresis with IV Lasix. Cardiology to follow-up on the patient's coronary artery disease. No coronary interventions for now. The patient be on medical therapy. Long-term prognosis poor based on his advanced lung disease and poor baseline performance and functional status. The patient has significant limitation excess tolerance due to his advanced COPD. Is quite cachectic without any interval weight loss.
[2017-05-25] MEDS: POTASSIUM CHLORIDE ER 10 MEQ TAB.ER.PRT PO SCH (16:36)
[2017-05-25 16:39] LABS: Glucose,Whole Blood 161 mg/dL (75-99)
[2017-05-25] MEDS ORDERED: HYDROcodone/APAP 5-325MG 1 EACH TAB PO PRN (20:28)
[2017-05-25] MEDS ORDERED: ALBUTEROL INHALER 60 PUFF/8 GM INHALER INHALATION PRN (20:28)
[2017-05-25] MEDS ORDERED: FLUTICASONE 50MCG/SPRAY NASAL 16GM EA NOSTRIL PRN (20:28)
[2017-05-25 20:48] LABS: Glucose,Whole Blood 124 mg/dL (75-99)
[2017-05-26 05:49] LABS: Glucose,Whole Blood 114 mg/dL (75-99)
[2017-05-26] MEDS: methylPREDNISolone SOD SUCCI 125 MG/2 ML VIAL IV SCH ×4 (06:10→23:50)
[2017-05-26] MEDS: INSULIN LISPRO (humaLOG) 300 UNIT/3 ML VIAL SQ SCH ×4 (06:36→20:50)
[2017-05-26] MEDS: PANTOPRAZOLE 40 MG TABLET PO SCH (06:36)
[2017-05-26 06:37] LABS: Basophils % (A) 0 %; CH 31.8; CHCM 32.6; Eosinophils % (A) 0 %; HCT 35.9 % (39.0-53.0); HDW 2.19; HGB 12.1 gm/dL (13.0-17.5); Luc # (Auto) 0.14; Luc % (Auto) 1; Lymphocytes # (A) 0.6 k/uL (1.0-4.8); Lymphocytes % (A) 3 %; MCH 33.1 pg (25.0-35.0); MCHC 33.8 g/dL (31.0-37.0); MCV 97.9 fL (80.0-100.0); Mean Platelet Volume 7.8; Monocytes # (A) 0.8 k/uL (0-1.0); Monocytes % (A) 3 %; Neutrophils # (A) 22.3 k/uL (1.3-7.7); Neutrophils % (A) 93 %; RBC 3.66 m/uL (4.30-5.90); RDW 12.9 % (11.5-15.5); WBC 23.9 k/uL (3.8-10.6); WBC (Perox) 24.77
[2017-05-26 06:54] LABS: Anion Gap 10 mmol/L; Blood Urea Nitrogen 30 mg/dL (9-20); Calcium 8.7 mg/dL (8.4-10.2); Carbon Dioxide 27 mmol/L (22-30); Chloride 104 mmol/L (98-107); Glucose 121 mg/dL (74-99); Non-African American GFR(MDRD) >60 (>60 ml/min/1.73 sqM); Potassium 4.5 mmol/L (3.5-5.1); Sodium 141 mmol/L (137-145)
[2017-05-26] MEDS: IPRATROPIUM-ALBUTEROL 3 ML NEB INHALATION PRN (07:28)
[2017-05-26] MEDS: BUDESONIDE 0.5 MG/2 ML NEBU INHALATION PRN (07:28)
[2017-05-26] MEDS: POTASSIUM CHLORIDE ER 10 MEQ TAB.ER.PRT PO SCH (07:59)
[2017-05-26] MEDS: LISINOPRIL 5 MG TAB PO SCH (07:59)
[2017-05-26] MEDS: FUROSEMIDE 10 MG/ML 2 ML VIAL IV SCH (07:59)
[2017-05-26] MEDS: ATENOLOL 12.5 MG TAB PO SCH (07:59)
[2017-05-26] MEDS: ATORVASTATIN 40 MG TAB PO SCH (07:59)
[2017-05-26] MEDS: ASPIRIN 325 MG TAB PO SCH (07:59)
[2017-05-26] MEDS: CHOLECALCIFEROL 1,000 UNIT TAB PO SCH (07:59)
[2017-05-26] MEDS: TIOTROPIUM 18 MCG/PUFF INHALER INHALATION PRN (10:58)
[2017-05-26 11:43] LABS: Glucose,Whole Blood 114 mg/dL (75-99)
[2017-05-26] MEDS: SODIUM CHLORIDE 0.9% 1,000 ML IV SCH (11:48)
--- NOTE | 2017-05-26 15:39 | P.PN ---
Subjective 81-year-old male patient, known having advanced COPD with chronic hypoxic respiratory failure maintained a combination of Pulmicort, Perforomist and Incrus along with long-term oxygen therapy, came into the hospital yesterday after having some difficulties with chest discomfort. Apparently the patient was at home and he had a power failure. He was off oxygen for quite some time. At that point he started having increased chest tightness and chest discomfort and he became progressively more short of breath and diaphoretic. For that reason he came into the hospital and there was a concern of him having a coronary event knowing that he has an underlying coronary artery disease with a prior myocardial infarction and a non-Q-wave [place] for which she had a stent placed in 2009. He is also known to have hypertension and hyperlipidemia along with his COPD and coronary artery disease. His initial EKG showed normal sinus rhythm with some ST segment depression. Chest x-ray was consistent with COPD and hyperinflation. The proBNP level was 4680 and a troponin was positive with a highest level being at 4.5. Based on that, the patient was started on IV heparin and the patient was also given accommodation of DuoNeb, Nitropaste and aspirin. 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 There was also findings consistent with apical ballooning syndrome. Recommendations were medical treatment. The echocardiogram was also done that showed moderate severe impaired LV function with an ejection fraction of 30-35% and there was no evidence of any valvular disruption other than mild MR, mild AST, apical hypokinesis, anteroseptal hypokinesis, secondary pulmonary hypertension with a PA pressure of around 56. The patient is currently calm and comfortable resting in bed. No magistral distress. Minimal congested cough without any significant sputum production. He is free of any chest pain for now. The patient is being diuresis gently and is receiving Lasix 20 mg IV on a daily basis. He is started on IV Solu-Medrol. He is on DuoNeb nebulized treatment [id number] and combination with Pulmicort On 05/26/2017 the patient is being seen in follow-up. He has no specific complaints. Is less short of breath compared to yesterday. No chest pain. He remains on IV heparin per hydro electric station operator recommendation. From the pulmonary standpoint however, the patient is not having any cough or sputum production. He continues to be on bronchodilators and systemic steroids and the patient is receiving 60 mg IV push Solu-Medrol every 6 hours. Tolerating diet. No change in mental status. No other significant events overnight. Objective - Vital Signs Vital signs: Vital Signs Temp 96.8 F L 05/26/17 15:34 Pulse 83 05/26/17 08:46 Resp 16 05/26/17 15:34 BP 86/53 05/26/17 15:34 Pulse Ox 100 05/26/17 15:34 Intake & Output 05/25/17 05/26/17 05/26/17 18:59 06:59 18:59 Intake Total 207.751 689.951 0 Balance 207.751 689.951 0 Weight 44.7 kg 43.8 kg Intake: IV 100 525 Heparin Sodium,Porcine/ 225 D5w Pmx 25,000 unit In Dextrose/Water 1 500ml. bag @ 12 UNITS/KG/HR 10. 66 mls/hr IV .Q24H SD Rx #:[id number] Sodium Chloride 0.9% 1, 300 000 ml @ 20 mls/hr IV . Q24H SD Rx#:[id number] Intake, IV Titration 107.751 164.951 Amount Heparin Sodium,Porcine/ 107.751 164.951 D5w Pmx 25,000 unit In Dextrose/Water 1 500ml. bag @ 12 UNITS/KG/HR 10. 66 mls/hr IV .Q24H SD Rx #:[id number] Oral 0 0 Other: # Voids 1 - Exam Thin and frail elderly male patient nonacute distress resting comfortably in bed.Head exam was generally normal. There was no scleral icterus or corneal arcus. Mucous membranes were moist.Neck was supple and without jugular venous distension, thyromegaly, or carotid bruits. Carotids were easily palpable bilaterally. There was no adenopathy. Examination of the lungs shows that the patient has a barrel chest. The patient has marked diminished breath sounds bilaterally specially in the lung bases. Scattered rhonchi. Scattered expiratory wheezes are also appreciated.Cardiac exam revealed the PMI to be normally situated and sized. The rhythm was regular and no extrasystoles were noted during several minutes of auscultation. The first and second heart sounds were normal and physiologic splitting of the second heart sound was noted. There were no murmurs, rubs, clicks, or gallops.Abdominal exam revealed normal bowel sounds. The abdomen was soft, non-tender, and without masses, organomegaly , or appreciable enlargement of the abdominal aorta.Examination of the extremities revealed easily palpable radial, femoral and pedal pulses. There was no cyanosis, clubbing or edema. - Labs CBC & Chem 7: 05/26/17 06:14 05/26/17 06:14 Labs: Abnormal Lab Results - Last 24 Hours (Table) 05/25/17 05/25/17 05/25/17 Range/Units 15:07 16:38 20:32 WBC (3.8-10.6) k/uL RBC (4.30-5.90) m/uL Hgb (13.0-17.5) gm/dL Hct (39.0-53.0) % Neutrophils # (1.3-7.7) k/uL Lymphocytes # (1.0-4.8) k/uL APTT 44.7 H 54.6 H (22.0-30.0) sec BUN (9-20) mg/dL Glucose (74-99) mg/dL POC Glucose (mg/dL) 161 H (75-99) mg/dL 05/25/17 05/26/17 05/26/17 Range/Units 20:46 05:47 06:14 WBC 23.9 H (3.8-10.6) k/uL RBC 3.66 L (4.30-5.90) m/uL Hgb 12.1 L (13.0-17.5) gm/dL Hct 35.9 L (39.0-53.0) % Neutrophils # 22.3 H (1.3-7.7) k/uL Lymphocytes # 0.6 L (1.0-4.8) k/uL APTT (22.0-30.0) sec BUN (9-20) mg/dL Glucose (74-99) mg/dL POC Glucose (mg/dL) 124 H 114 H (75-99) mg/dL 05/26/17 05/26/17 05/26/17 Range/Units 06:14 06:14 11:35 WBC (3.8-10.6) k/uL RBC (4.30-5.90) m/uL Hgb (13.0-17.5) gm/dL Hct (39.0-53.0) % Neutrophils # (1.3-7.7) k/uL Lymphocytes # (1.0-4.8) k/uL APTT 47.0 H (22.0-30.0) sec BUN 30 H (9-20) mg/dL Glucose 121 H (74-99) mg/dL POC Glucose (mg/dL) 114 H (75-99) mg/dL Microbiology - Last 24 Hours (Table) 05/24/17 18:53 Blood Culture - Preliminary Blood No Growth after 24 hours Assessment and Plan Plan: Assessment 1 acute non-ST segment elevation myocardial infarction, status post cardiac catheterization findings showing total occlusion of the RCA with a stable disease in the left coronary system and presence of apical ballooning. Currently the patient is fairly of any chest pain. No coronary intervention was recommended and the patient will receive maximal medical therapy. 2 advanced COPD with chronic hypoxic respiratory failure, with a component of an acute COPD exacerbation with secondary shortness of breath 3 chronic hypoxic respiratory failure and the patient had a power failure at home and he was off oxygen for quite some time and exact duration is unknown 4 CHF with an ejection fraction of 30-35% and secondary pulmonary hypertension 5 hypertension 6 hyperlipidemia 7 cachexia 8 shingles, history of Plan Current condition is stable. Continue the bronchodilators and systemic shows for another 24 hours and will put the patient prednisone burst taper within next 24 hours. Management of anticoagulation per cardiology as the patient continues to be on IV heparin.. The patient CHF seems to be compensated for now. No signs of fluid overload. We'll continue to follow.
--- NOTE | 2017-05-26 16:30 | P.PN ---
Subjective Principal diagnosis: NSTEMI This is a pleasant 81-year-old gentleman with a history of prior inferior wall CO and stent placement of the RCA done about 7 years ago. Patient was admitted with prolonged chest discomfort and abnormal troponin levels. EKG showed ST T wave changes in the lateral leads. Echocardiogram showed extensive wall motion abnormalities involving the anteroapical and lateral perrin. Patient underwent cardiac catheterization by Dr. Camarillo yesterday which showed total occlusion of the RCA with mild stable disease in the left coronary system, findings consistent with apical ballooning syndrome. Recommended maximum medical therapy. Upon examination today, patient is resting comfortably in bed. He denies complaints of further chest discomfort. His respiratory status is at his baseline. Objective - Vital Signs Vital signs: Vital Signs Temp 96.8 F L 05/26/17 15:34 Pulse 83 05/26/17 08:46 Resp 16 05/26/17 15:34 BP 86/53 05/26/17 15:34 Pulse Ox 100 05/26/17 15:34 Intake & Output 05/25/17 05/26/17 05/26/17 18:59 06:59 18:59 Intake Total 207.751 689.951 0 Balance 207.751 689.951 0 Weight 44.7 kg 43.8 kg Intake: IV 100 525 Heparin Sodium,Porcine/ 225 D5w Pmx 25,000 unit In Dextrose/Water 1 500ml. bag @ 12 UNITS/KG/HR 10. 66 mls/hr IV .Q24H SD Rx #:[id number] Sodium Chloride 0.9% 1, 300 000 ml @ 20 mls/hr IV . Q24H SD Rx#:[id number] Intake, IV Titration 107.751 164.951 Amount Heparin Sodium,Porcine/ 107.751 164.951 D5w Pmx 25,000 unit In Dextrose/Water 1 500ml. bag @ 12 UNITS/KG/HR 10. 66 mls/hr IV .Q24H SD Rx #:[id number] Oral 0 0 Other: # Voids 1 - Exam PHYSICAL EXAMINATION: HEENT: Head is atraumatic, normocephalic. Pupils equal, round. Neck is supple. There is no elevated jugular venous pressure. HEART EXAMINATION: Heart sounds regular, S1 and S2 normal. No murmur or gallop heard. CHEST EXAMINATION: Lungs reveal diminished air entry throughout. No chest wall tenderness is noted on palpation or with deep breathing. ABDOMEN: Soft, nontender. Bowel sounds are heard. No organomegaly noted. EXTREMITIES: 1+ peripheral pulses with no evidence of peripheral edema and no calf tenderness noted. Right groin puncture site soft without ecchymosis or hematoma.. NEUROLOGIC patient is awake, alert and oriented x3. . - Labs CBC & Chem 7: 05/26/17 06:14 05/26/17 06:14 Labs: Abnormal Lab Results - Last 24 Hours (Table) 05/25/17 05/25/17 05/25/17 Range/Units 16:38 20:32 20:46 WBC (3.8-10.6) k/uL RBC (4.30-5.90) m/uL Hgb (13.0-17.5) gm/dL Hct (39.0-53.0) % Neutrophils # (1.3-7.7) k/uL Lymphocytes # (1.0-4.8) k/uL APTT 54.6 H (22.0-30.0) sec BUN (9-20) mg/dL Glucose (74-99) mg/dL POC Glucose (mg/dL) 161 H 124 H (75-99) mg/dL 05/26/17 05/26/17 05/26/17 Range/Units 05:47 06:14 06:14 WBC 23.9 H (3.8-10.6) k/uL RBC 3.66 L (4.30-5.90) m/uL Hgb 12.1 L (13.0-17.5) gm/dL Hct 35.9 L (39.0-53.0) % Neutrophils # 22.3 H (1.3-7.7) k/uL Lymphocytes # 0.6 L (1.0-4.8) k/uL APTT (22.0-30.0) sec BUN 30 H (9-20) mg/dL Glucose 121 H (74-99) mg/dL POC Glucose (mg/dL) 114 H (75-99) mg/dL 05/26/17 05/26/17 Range/Units 06:14 11:35 WBC (3.8-10.6) k/uL RBC (4.30-5.90) m/uL Hgb (13.0-17.5) gm/dL Hct (39.0-53.0) % Neutrophils # (1.3-7.7) k/uL Lymphocytes # (1.0-4.8) k/uL APTT 47.0 H (22.0-30.0) sec BUN (9-20) mg/dL Glucose (74-99) mg/dL POC Glucose (mg/dL) 114 H (75-99) mg/dL Microbiology - Last 24 Hours (Table) 05/24/17 18:53 Blood Culture - Preliminary Blood No Growth after 24 hours Assessment and Plan Plan: Assessment and plan #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 #3 hypertension #4 hyperlipidemia #5 COPD with home O2 use #6 history of nicotine dependence, still chews tobacco #7 mild congestive cardiac failure, BNP level 4680 #8 mildly abnormal liver enzymes to be secondary to congestion #9 cardiomyopathy with an ejection fraction between 30-35% From cardiac standpoint, we'll switch the patient to by mouth Lasix. Continue monitor patient's renal function and blood pressures. Further recommendations to follow. 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 Patient was seen and examined.
[2017-05-26 16:47] LABS: Glucose,Whole Blood 129 mg/dL (75-99)
[2017-05-26] MEDS: HEPARIN SODIUM,PORCINE/D5W PMX 25,000 UNIT in DEXTROSE/WATER 1 500ML.BAG IV SCH (20:17)
[2017-05-26 20:48] LABS: Glucose,Whole Blood 144 mg/dL (75-99)
[2017-05-27 02:49] VITALS: RESP 18
[2017-05-27 06:05] LABS: Glucose,Whole Blood 111 mg/dL (75-99)
[2017-05-27] MEDS: INSULIN LISPRO (humaLOG) 300 UNIT/3 ML VIAL SQ SCH ×2 (06:37→12:08)
[2017-05-27 06:45] LABS: Basophils % (A) 0 %; CH 32.1; CHCM 32.8; Eosinophils % (A) 0 %; HCT 38.4 % (39.0-53.0); HDW 2.17; HGB 12.7 gm/dL (13.0-17.5); Luc # (Auto) 0.06; Luc % (Auto) 0; Lymphocytes # (A) 0.5 k/uL (1.0-4.8); Lymphocytes % (A) 3 %; MCH 32.6 pg (25.0-35.0); MCHC 33.2 g/dL (31.0-37.0); MCV 98.3 fL (80.0-100.0); Monocytes # (A) 0.6 k/uL (0-1.0); Monocytes % (A) 3 %; Neutrophils # (A) 20.5 k/uL (1.3-7.7); Neutrophils % (A) 94 %; WBC 21.7 k/uL (3.8-10.6); WBC (Perox) 21.89
[2017-05-27] MEDS: methylPREDNISolone SOD SUCCI 125 MG/2 ML VIAL IV SCH ×2 (06:48→12:12)
[2017-05-27] MEDS: PANTOPRAZOLE 40 MG TABLET PO SCH (06:48)
[2017-05-27] MEDS: IPRATROPIUM-ALBUTEROL 3 ML NEB INHALATION PRN (08:23)
[2017-05-27] MEDS: BUDESONIDE 0.5 MG/2 ML NEBU INHALATION PRN (08:23)
[2017-05-27] MEDS: TIOTROPIUM 18 MCG/PUFF INHALER INHALATION PRN (08:24)
[2017-05-27] MEDS ORDERED: FUROSEMIDE 20 MG TAB PO SCH (09:00)
[2017-05-27] MEDS: ATORVASTATIN 40 MG TAB PO SCH (09:02)
[2017-05-27] MEDS: POTASSIUM CHLORIDE ER 10 MEQ TAB.ER.PRT PO SCH (09:02)
[2017-05-27] MEDS: LISINOPRIL 5 MG TAB PO SCH (09:02)
[2017-05-27] MEDS: ATENOLOL 12.5 MG TAB PO SCH (09:02)
[2017-05-27] MEDS: ASPIRIN 325 MG TAB PO SCH (09:02)
[2017-05-27] MEDS: CHOLECALCIFEROL 1,000 UNIT TAB PO SCH (09:03)
[2017-05-27 09:19] LABS: Anion Gap 10 mmol/L; Blood Urea Nitrogen 36 mg/dL (9-20); Calcium 9.2 mg/dL (8.4-10.2); Carbon Dioxide 29 mmol/L (22-30); Chloride 103 mmol/L (98-107); Glucose 111 mg/dL (74-99); Non-African American GFR(MDRD) >60 (>60 ml/min/1.73 sqM); Potassium 4.6 mmol/L (3.5-5.1); Sodium 142 mmol/L (137-145)
[2017-05-27 12:06] LABS: Glucose,Whole Blood 111 mg/dL (75-99)
[2017-05-27] MEDS: SODIUM CHLORIDE 0.9% 1,000 ML IV SCH (12:18)
[2017-05-27 12:27] VITALS: BP 89/49; PULSE 62; TEMP 96.9
--- NOTE | 2017-05-27 12:47 | P.PN ---
Subjective 81-year-old male patient, known having advanced COPD with chronic hypoxic respiratory failure maintained a combination of Pulmicort, Perforomist and Incrus along with long-term oxygen therapy, came into the hospital yesterday after having some difficulties with chest discomfort. Apparently the patient was at home and he had a power failure. He was off oxygen for quite some time. At that point he started having increased chest tightness and chest discomfort and he became progressively more short of breath and diaphoretic. For that reason he came into the hospital and there was a concern of him having a coronary event knowing that he has an underlying coronary artery disease with a prior myocardial infarction and a non-Q-wave [place] for which she had a stent placed in 2009. He is also known to have hypertension and hyperlipidemia along with his COPD and coronary artery disease. His initial EKG showed normal sinus rhythm with some ST segment depression. Chest x-ray was consistent with COPD and hyperinflation. The proBNP level was 4680 and a troponin was positive with a highest level being at 4.5. Based on that, the patient was started on IV heparin and the patient was also given accommodation of DuoNeb, Nitropaste and aspirin. 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 There was also findings consistent with apical ballooning syndrome. Recommendations were medical treatment. The echocardiogram was also done that showed moderate severe impaired LV function with an ejection fraction of 30-35% and there was no evidence of any valvular disruption other than mild MR, mild AST, apical hypokinesis, anteroseptal hypokinesis, secondary pulmonary hypertension with a PA pressure of around 56. The patient is currently calm and comfortable resting in bed. No magistral distress. Minimal congested cough without any significant sputum production. He is free of any chest pain for now. The patient is being diuresis gently and is receiving Lasix 20 mg IV on a daily basis. He is started on IV Solu-Medrol. He is on DuoNeb nebulized treatment [id number] and combination with Pulmicort On 05/26/2017 the patient is being seen in follow-up. He has no specific complaints. Is less short of breath compared to yesterday. No chest pain. He remains on IV heparin per gunner's mate m recommendation. From the pulmonary standpoint however, the patient is not having any cough or sputum production. He continues to be on bronchodilators and systemic steroids and the patient is receiving 60 mg IV push Solu-Medrol every 6 hours. Tolerating diet. No change in mental status. No other significant events overnight. On 05/27/2017, the patient is free of any chest pain. The patient is off IV heparin. The patient is emanating in the hallway. No chest pain. No cough or sputum production. Tolerating diet. No change in mental status. No other complaints otherwise. Discharge planning is in progress. The patient is taking Lasix 20 mg on a daily basis. The patient will be taken off the IV Solu- Medrol and put in a prednisone burst taper. Outpatient medication will be kept unchanged otherwise. Objective - Vital Signs Vital signs: Vital Signs Temp 96.9 F L 05/27/17 12:00 Pulse 62 05/27/17 12:00 Resp 18 05/27/17 12:00 BP 89/49 05/27/17 12:00 Pulse Ox 97 05/27/17 12:00 Intake & Output 05/26/17 05/27/17 05/27/17 18:59 06:59 18:59 Intake Total 100 335.049 473.261 Balance 100 335.049 473.261 Weight 45.5 kg Intake: IV 125 Heparin Sodium,Porcine/ 45 D5w Pmx 25,000 unit In Dextrose/Water 1 500ml. bag @ 12 UNITS/KG/HR 10. 66 mls/hr IV .Q24H SD Rx #:[id number] Sodium Chloride 0.9% 1, 80 000 ml @ 20 mls/hr IV . Q24H SD Rx#:[id number] Intake, IV Titration 335.049 173.261 Amount Heparin Sodium,Porcine/ 335.049 173.261 D5w Pmx 25,000 unit In Dextrose/Water 1 500ml. bag @ 12 UNITS/KG/HR 10. 66 mls/hr IV .Q24H SD Rx #:[id number] Oral 100 175 Other: # Voids 1 - Exam Thin and frail elderly male patient nonacute distress resting comfortably in bed.Head exam was generally normal. There was no scleral icterus or corneal arcus. Mucous membranes were moist.Neck was supple and without jugular venous distension, thyromegaly, or carotid bruits. Carotids were easily palpable bilaterally. There was no adenopathy. Examination of the lungs shows that the patient has a barrel chest. The patient has marked diminished breath sounds bilaterally specially in the lung bases. Scattered rhonchi. Scattered expiratory wheezes are also appreciated.Cardiac exam revealed the PMI to be normally situated and sized. The rhythm was regular and no extrasystoles were noted during several minutes of auscultation. The first and second heart sounds were normal and physiologic splitting of the second heart sound was noted. There were no murmurs, rubs, clicks, or gallops.Abdominal exam revealed normal bowel sounds. The abdomen was soft, non-tender, and without masses, organomegaly , or appreciable enlargement of the abdominal aorta.Examination of the extremities revealed easily palpable radial, femoral and pedal pulses. There was no cyanosis, clubbing or edema. - Labs CBC & Chem 7: 05/27/17 06:24 05/27/17 06:24 Labs: Abnormal Lab Results - Last 24 Hours (Table) 05/26/17 05/26/17 05/27/17 Range/Units 16:42 20:47 06:03 WBC (3.8-10.6) k/uL RBC (4.30-5.90) m/uL Hgb (13.0-17.5) gm/dL Hct (39.0-53.0) % Neutrophils # (1.3-7.7) k/uL Lymphocytes # (1.0-4.8) k/uL APTT (22.0-30.0) sec BUN (9-20) mg/dL Glucose (74-99) mg/dL POC Glucose (mg/dL) 129 H 144 H 111 H (75-99) mg/dL 05/27/17 05/27/17 05/27/17 Range/Units 06:24 06:24 06:24 WBC 21.7 H (3.8-10.6) k/uL RBC 3.90 L (4.30-5.90) m/uL Hgb 12.7 L (13.0-17.5) gm/dL Hct 38.4 L (39.0-53.0) % Neutrophils # 20.5 H (1.3-7.7) k/uL Lymphocytes # 0.5 L (1.0-4.8) k/uL APTT 136.3 H* (22.0-30.0) sec BUN 36 H (9-20) mg/dL Glucose 111 H (74-99) mg/dL POC Glucose (mg/dL) (75-99) mg/dL 05/27/17 Range/Units 12:05 WBC (3.8-10.6) k/uL RBC (4.30-5.90) m/uL Hgb (13.0-17.5) gm/dL Hct (39.0-53.0) % Neutrophils # (1.3-7.7) k/uL Lymphocytes # (1.0-4.8) k/uL APTT (22.0-30.0) sec BUN (9-20) mg/dL Glucose (74-99) mg/dL POC Glucose (mg/dL) 111 H (75-99) mg/dL Microbiology - Last 24 Hours (Table) 05/24/17 18:53 Blood Culture - Preliminary Blood No Growth after 48 hours Assessment and Plan Plan: Assessment 1 acute non-ST segment elevation myocardial infarction, status post cardiac catheterization findings showing total occlusion of the RCA with a stable disease in the left coronary system and presence of apical ballooning. Currently the patient is fairly of any chest pain. No coronary intervention was recommended and the patient will receive maximal medical therapy. 2 advanced COPD with chronic hypoxic respiratory failure, with a component of an acute COPD exacerbation with secondary shortness of breath 3 chronic hypoxic respiratory failure and the patient had a power failure at home and he was off oxygen for quite some time and exact duration is unknown 4 CHF with an ejection fraction of 30-35% and secondary pulmonary hypertension 5 hypertension 6 hyperlipidemia 7 cachexia 8 shingles, history of Plan The patient be taken off the IV Solu Medrol and placed on a prednisone burst taper. The patient is doing well. Discharge planning is in progress. Home medication would include Pulmicort and Perforomist neb last 2 minutes twice a day, Incrus once a day and albuterol an estimated basis.
[2017-05-27] MEDS ORDERED: predniSONE 20 MG TAB PO SCH (13:00)
--- NOTE | 2017-05-27 13:53 | P.PN ---
Subjective Principal diagnosis: NSTEMI This is a pleasant 81-year-old gentleman with a history of prior inferior wall [place] and stent placement of the RCA done about 7 years ago. Patient was admitted with prolonged chest discomfort and abnormal troponin levels. EKG showed ST T wave changes in the lateral leads. Echocardiogram showed extensive wall motion abnormalities involving the anteroapical and lateral perrin. Patient underwent cardiac catheterization by Dr. Camarillo which showed total occlusion of the RCA with mild stable disease in the left coronary system, findings consistent with apical ballooning syndrome. Recommended maximum medical therapy. Upon examination today, patient is resting comfortably in bed. He denies complaints of further chest discomfort. His respiratory status is at his baseline. The patient was counseled on importance of taking Nitrostat with chest pain. Objective - Vital Signs Vital signs: Vital Signs Temp 96.9 F L 05/27/17 12:00 Pulse 62 05/27/17 12:00 Resp 18 05/27/17 12:00 BP 89/49 05/27/17 12:00 Pulse Ox 97 05/27/17 12:00 Intake & Output 05/26/17 05/27/17 05/27/17 18:59 06:59 18:59 Intake Total 100 335.049 473.261 Balance 100 335.049 473.261 Weight 45.5 kg Intake: IV 125 Heparin Sodium,Porcine/ 45 D5w Pmx 25,000 unit In Dextrose/Water 1 500ml. bag @ 12 UNITS/KG/HR 10. 66 mls/hr IV .Q24H SD Rx #:[id number] Sodium Chloride 0.9% 1, 80 000 ml @ 20 mls/hr IV . Q24H SD Rx#:[id number] Intake, IV Titration 335.049 173.261 Amount Heparin Sodium,Porcine/ 335.049 173.261 D5w Pmx 25,000 unit In Dextrose/Water 1 500ml. bag @ 12 UNITS/KG/HR 10. 66 mls/hr IV .Q24H SD Rx #:[id number] Oral 100 175 Other: # Voids 1 - Exam PHYSICAL EXAMINATION: HEENT: Head is atraumatic, normocephalic. Pupils equal, round. Neck is supple. There is no elevated jugular venous pressure. HEART EXAMINATION: Heart sounds regular, S1 and S2 normal. No murmur or gallop heard. CHEST EXAMINATION: Lungs reveal diminished air entry throughout. No chest wall tenderness is noted on palpation or with deep breathing. ABDOMEN: Soft, nontender. Bowel sounds are heard. No organomegaly noted. EXTREMITIES: 1+ peripheral pulses with no evidence of peripheral edema and no calf tenderness noted. Right groin puncture site soft without ecchymosis or hematoma.. NEUROLOGIC patient is awake, alert and oriented x3. . - Labs CBC & Chem 7: 05/27/17 06:24 05/27/17 06:24 Labs: Abnormal Lab Results - Last 24 Hours (Table) 05/26/17 05/26/17 05/27/17 Range/Units 16:42 20:47 06:03 WBC (3.8-10.6) k/uL RBC (4.30-5.90) m/uL Hgb (13.0-17.5) gm/dL Hct (39.0-53.0) % Neutrophils # (1.3-7.7) k/uL Lymphocytes # (1.0-4.8) k/uL APTT (22.0-30.0) sec BUN (9-20) mg/dL Glucose (74-99) mg/dL POC Glucose (mg/dL) 129 H 144 H 111 H (75-99) mg/dL 05/27/17 05/27/17 05/27/17 Range/Units 06:24 06:24 06:24 WBC 21.7 H (3.8-10.6) k/uL RBC 3.90 L (4.30-5.90) m/uL Hgb 12.7 L (13.0-17.5) gm/dL Hct 38.4 L (39.0-53.0) % Neutrophils # 20.5 H (1.3-7.7) k/uL Lymphocytes # 0.5 L (1.0-4.8) k/uL APTT 136.3 H* (22.0-30.0) sec BUN 36 H (9-20) mg/dL Glucose 111 H (74-99) mg/dL POC Glucose (mg/dL) (75-99) mg/dL 05/27/17 Range/Units 12:05 WBC (3.8-10.6) k/uL RBC (4.30-5.90) m/uL Hgb (13.0-17.5) gm/dL Hct (39.0-53.0) % Neutrophils # (1.3-7.7) k/uL Lymphocytes # (1.0-4.8) k/uL APTT (22.0-30.0) sec BUN (9-20) mg/dL Glucose (74-99) mg/dL POC Glucose (mg/dL) 111 H (75-99) mg/dL Microbiology - Last 24 Hours (Table) 05/24/17 18:53 Blood Culture - Preliminary Blood No Growth after 48 hours Assessment and Plan Plan: Assessment and plan #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 #3 hypertension #4 hyperlipidemia #5 COPD with home O2 use #6 history of nicotine dependence, still chews tobacco #7 mild congestive cardiac failure, BNP level 4680 #8 mildly abnormal liver enzymes to be secondary to congestion #9 cardiomyopathy with an ejection fraction between 30-35% From cardiac standpoint, the patient may be discharged home today. Medications were reviewed and will continue the same. He will follow-up in the office with Dr. Camarillo in about a week. BLENDER HELPER note has been reviewed, I agree with a documented findings and plan of care. Patient was seen and examined.
--- NOTE | 2017-05-28 08:51 | HP ---
DATE OF SERVICE: 05/25/2017 Chief complaints are shortness of breath and cough and congestion. HISTORY OF PRESENT ILLNESS: This 81-year-old gentleman with a past medical history of multiple problems including COPD, hypertension, hyperlipidemia, history of myocardial infarction, history of chronic hypoxic respiratory failure , history of cardiac cath with CAD stent being followed by Dr. Desai in the outpatient setting was admitted to [facility] with complaining of shortness of breath. The patient had cough and congestion, extensive shortness of breath and patient came to [facility]. Apparently, the power went out the night before and patient unable to use oxygen and the patient was found to have troponin elevated to 6.230. The patient underwent cardiac catheterization by Dr. Camarillo showed significant abnormalities including occlusion of the RCA with mild stable disease on the left coronary system. Findings are consistent with apical ballooning syndrome and maximum medical treatment was recommended. The patient is closely monitored. There is no history of fever, rigors. No history of headache, loss of consciousness or seizures. PAST MEDICAL HISTORY: History of COPD, hypertension, hyperlipidemia, history of DJD, history of COPD, history of myocardial infarction. Medications prior to admission include home medications are: 1. Zocor 20 mg q.h.s. 2. Pulmicort 0.5 b.i.d. p.r.n. 3. Perforomist 20 mcg p.o. b.i.d. 4. Ellipta 1 puff daily p.r.n. 5. Flonase 1 spray daily p.r.n. 6. Nitrostat 0.4 sublingual p.r.n. 7. Claritin 10 mg daily. 8. Prinivil 5 mg. 9. Vitamin D3, 2000 daily. 10. Atenolol 12.5 mg daily. 11. Aspirin 325 mg daily. 12. Ventolin 1 to 2 puffs q.6 p.r.n. Allergies are none. FAMILY HISTORY: History of lung cancer. SOCIAL HISTORY: Previous history of smoking. REVIEW OF SYSTEMS: ENT: Diminished hearing, diminished vision. CARDIOVASCULAR SYSTEM: As mentioned. RESPIRATORY SYSTEM: As mentioned. GI: No nausea. : No dysuria. NERVOUS SYSTEM: No numbness or weakness. ALLERGY/IMMUNOLOGY: No asthma or hayfever. MUSCULOSKELETAL: As mentioned. HEMATOLOGY/ONCOLOGY: No history of anemia. ENDOCRINE: No history of diabetes or hypothyroidism. CONSTITUTIONAL: As mentioned earlier. DERMATOLOGY: Negative. PSYCHIATRY: As mentioned earlier. PHYSICAL EXAMINATION: The patient is alert and oriented x3. Pulse is 97, blood pressure 97/60, respirations 16, temperature was normal, pulse ox 99% on 2 L. HEENT EXAM: Conjunctivae normal. Oral mucous moist. NECK: No jugular venous distention. No carotid bruit. No lymph node enlargement. CARDIOVASCULAR: S1 and S2 muffled. No S3, no S4. RESPIRATORY: Breath sounds diminished at the bases. A few scattered rhonchi and crackles. Expiratory wheezing also present. ABDOMEN: Soft, nontender. LEGS: No edema, no swelling. NERVOUS SYSTEM: Higher function as mentioned. Move all 4 limbs. LYMPHATICS: No lymphadenopathy of neck, axillae or groin. SKIN: No ulcers, rashes, bleeding. Labs are noted. Creatine kinase 554. Troponin is 6.230. ASSESSMENT: 1. Acute non-ST segment elevation myocardial infarction, status post cardiac catheterization and as well as total occlusion of the right coronary artery. 2. Apical ballooning syndrome. 3. Chronic obstructive pulmonary disease acute exacerbation with chronic hypoxic respiratory failure on nasal cannula. 4. Congestive heart failure with chronic systolic dysfunction, ejection fraction 30% to 35%. 5. Increased WBC. 6. Increased AST, ALT, mild hepatitis of undetermined origin. 7. History of chronic obstructive pulmonary disease. 8. Hypertension. 9. Hyperlipidemia. 10. History of myocardial infarction. 11. History of secondary pulmonary hypertension. 12. History of coronary artery disease and stent in 2009. 13. FULL CODE. 14. Severe protein calorie malnutrition with a body mass index of 15.9. RECOMMENDATIONS AND DISCUSSION: This 81-year-old gentleman who presented with multiple complex medical issues. Will monitor the patient closely. Continue the current medications. antiplatelet agents and beta blockers and as well as. Repeat labs will be ordered. Dr. Barr input appreciated. Guarded prognosis because of multiple complex medical issues. Further recommendations to follow. See orders for details. MTDD
--- NOTE | 2017-06-01 08:09 | PN ---
DATE OF SERVICE: 05/26/2017 This 81-year-old gentleman who was admitted with acute non-ST segment elevation myocardial infarction also had apical ballooning syndrome. The patient had cardiac catheterization. No chest pain or palpitation. No fever. On exam, alert and oriented x3. The pulse is 80, blood pressure 86/53, respirations 16, temperature 96.8, pulse ox normal. HEENT: Conjunctivae normal. NECK: No jugular venous distention. CARDIOVASCULAR: S1 and S2, muffled. RESPIRATORY: Breath sounds diminished at the bases. ABDOMEN: Soft. Nontender. LEGS: No edema. NERVOUS SYSTEM: No focal deficits. Labs are noted. ASSESSMENT: 1. Acute cfh-[id number]-[id number] elevation myocardial infarction. 2. Status post cardiac catheterization and as well as total occlusion of the right coronary artery. 3. Apical ballooning syndrome. 4. Chronic obstructive pulmonary disease, acute exacerbation. 5. Congestive heart failure with chronic systolic dysfunction, multiple medical issues. RECOMMENDATIONS AND DISCUSSION: Recommend to continue current medications. Continue with antiplatelets and follow closely with Cardiology. Guarded prognosis. Further recommendations to follow. MTDD
--- NOTE | 2017-06-03 09:06 | DS ---
DATE OF SERVICE: 05/27/2017 DISCHARGE DIAGNOSES: 1. Acute non-ST elevation myocardial infarction, status post cardiac catheterization as well as total occlusion of right coronary artery. 2. apical balloning syndrome. 3. Chronic obstructive pulmonary disease acute exacerbation with chronic hypoxic respiratory failure on nasal cannula. 4. Congestive heart failure with chronic systolic dysfunction with ejection fraction 30 to 35%. 5. Increased WBC. 6. Increased AST and ALT, mild hepatitis of undetermined etiology. 7. History of chronic obstructive pulmonary disease. . 8. Hypertension, essential. 9. Hyperlipidemia. 10. History of myocardial infarction. 11. Secondary to pulmonary hypertension. 12. History of coronary artery disease with stent in 2009. 13. Severe protein calorie malnutrition with body mass index of 15.9. 14. FULL CODE. DISCHARGE DISPOSITION: This patient will be discharged in stable condition with guarded prognosis. Total time taken is 35 minutes. HISTORY OF PRESENT ILLNESS: This 81-year-old gentleman with past medical history of multiple medical problems admitted with shortness of breath, cough as well as features of acute non-ST elevation myocardial infarction. Cardiology saw the patient, took him for cardiac catheterization. No procedure was performed. Treated symptomatically. Pulmonology saw the patient. On exam, vitals are stable. CARDIOVASCULAR: S1, S2. RESPIRATORY: A few rhonchi. ABDOMEN: Soft, nontender. DISCHARGE ADVICE AND MEDICATIONS: 1. Diet is cardiac. 2. Activity limited until follow up. 3. Follow up with Dr. Desai as advised. 4. Follow with Cardiology as recommended. Medications will be as follows: 1. Albuterol inhaler 1 to 2 puffs q.6. p.r.n. 2. Aspirin 325 mg p.o. daily. 3. atenolol 12.5 mg daily. 4. Lipitor 40 mg p.o. daily. 5. Pulmicort 0.5 daily. 6. Vitamin D3 2000 daily. 7. Pepcid 20 mg p.o. b.i.d. 8. Fluticasone spray daily. 9. Formoterol 20 mg daily. 10. Lasix 20 mg p.o. daily. 11. Prinivil 5 mg p.o. daily. 12. Claritin 10 mg p.o. daily. 13. Nitrostat 0.4 sublingual p.r.n. 14. K-Dur 10 mEq p.o. daily. 15. Prednisone taper. 16. Zocor 20 mg q.h.s. 17. Incruse 1 puff. Once again, the patient is discharged in stable condition with guarded prognosis. MTDD
== END 2017-05-27 15:20 | disposition home or self-care (01) | DRG 280 ==
LOC: EC 18:25 → 6SEL 19:58
PROVIDERS: ADMIT Hospitalist; ATTEND Hospitalist
PROC: B2111ZZ Fluoroscopy of Multiple Coronary Arteries using Low Osmolar Contrast (ICD-10-PCS; principal; 2017-05-25 10:55)
PROC: 4A023N7 Measurement of Cardiac Sampling and Pressure, Left Heart, Percutaneous Approach (ICD-10-PCS; principal; 2017-05-25 10:55)
DX: I21.4 Non-ST elevation (NSTEMI) myocardial infarction (principal); E43 Unspecified severe protein-calorie malnutrition; J96.11 Chronic respiratory failure with hypoxia; I42.9 Cardiomyopathy, unspecified; I11.0 Hypertensive heart disease with heart failure; I50.22 Chronic systolic (congestive) heart failure; I25.82 Chronic total occlusion of coronary artery; R64 Cachexia; J44.1 Chronic obstructive pulmonary disease with (acute) exacerbation; I51.81 Takotsubo syndrome; Z68.1 Body mass index [BMI] 19.9 or less, adult; B02.9 Zoster without complications; E78.5 Hyperlipidemia, unspecified; I25.10 Atherosclerotic heart disease of native coronary artery without angina pectoris; I27.2 Other secondary pulmonary hypertension; K75.9 Inflammatory liver disease, unspecified; Z79.82 Long term (current) use of aspirin; Z79.899 Other long term (current) drug therapy; Z80.1 Family history of malignant neoplasm of trachea, bronchus and lung; Z87.891 Personal history of nicotine dependence; Z95.5 Presence of coronary angioplasty implant and graft; Z99.81 Dependence on supplemental oxygen
CPT/HCPCS: 36415; 71010; 80048; 80053; 80061; 82550; 82553; 83036; 83735; 83880; 84484; 85025; 85049; 85610; 85730; 87040; 93005; 93306; 93458; 94640; 94644; 94760; 96361; 96365; 96366; 96367; 96375; 96376; 99291

== ENCOUNTER 2017-11-22 07:14 | Day surgery (SDC) | payer MEDICARE, OTHER ==
[2017-11-21 09:34] VITALS: BMI 16.1
[~2017-11-22 07:14] MED LIST: LACTATED RINGERS 1,000 ML IV SCH; MOXIFLOXACIN HCL 0.5% DROPS 3 ML BTL OP ONE; ONDANSETRON 4 MG/2 ML VIAL IVP PRN; TETRACAINE 0.5% OPHTH (PF) DROPS 4 ML BTL OP ONE; TIMOLOL 0.5% OPHTH SOLN (PF) 0.2 ML DROPERETTE OP ONE
[2017-11-22] MEDS: PHENYLEPHRINE 2.5% OPHTH DRP 2ML OP NR ×4 (07:41→08:03)
[2017-11-22 07:46] VITALS: RESP 16; TEMP 97.6
[2017-11-22] MEDS: CYCLOPENTOLATE 1% OPHTH SOLN 2 ML BTL OP ONE ×3 (07:48→08:06)
[2017-11-22] MEDS ORDERED: LIDOCAINE 1% 20 ML VIAL (10MG/ML) FOR IV START INTRADERMA ONE (08:00)
[2017-11-22] MEDS ORDERED: LIDOCAINE 1% (PF) 10MG/ML VIAL INTRAARTIC ONE (08:12)
[2017-11-22] MEDS ORDERED: BALANCED SALT IRRIG SOLN COMB2 15 ML IRRIG.SOLN IRRIGATION ONE (08:12)
[2017-11-22] MEDS ORDERED: TIMOLOL 0.5% OPHTH SOLN (PF) 0.2 ML DROPERETTE RIGHT EYE ONE (08:12)
[2017-11-22] MEDS ORDERED: DUOVISC KIT (GREEN BOX) INTRAOCULA ONE (08:12)
[2017-11-22] MEDS ORDERED: MOXIFLOXACIN HCL 0.5% DROPS 3 ML BTL RIGHT EYE ONE (08:13)
[2017-11-22] MEDS ORDERED: EPINEPHrine (PF) 0.3 ML in BALANCED SALT IRRIG SOLN COMB2 500 ML IRRIGATION ONE (08:13)
[2017-11-22] MEDS ORDERED: MIDAZOLAM 2 MG/2 ML VIAL ONE (08:13)
--- NOTE | 2017-11-22 08:40 | P.OP ---
Date of Procedure: 11/22/17 Preoperative Diagnosis: NS & CS Postoperative Diagnosis: same Procedure(s) Performed: PIOL OD Implants: PCB00 20.50 Anesthesia: MAC Surgeon: Hesham Milligan Estimated Blood Loss (ml): 0 Pathology: none sent Condition: stable Disposition: same day Indications for Procedure: blurry vision Operative Findings: No complications
[2017-11-22 08:56] VITALS: BP 143/70; PULSE 62
--- NOTE | 2017-11-22 18:19 | OP ---
OPERATIVE REPORT DATE OF SURGERY: November 22, 2017. PROCEDURE: Phacoemulsification of cataract and intraocular lens implant of the right eye. POWDER LOADER:: PREOPERATIVE DIAGNOSES:: Nuclear sclerosis. Cortical sclerosis. POSTOPERATIVE DIAGNOSES:: Nuclear sclerosis. Cortical sclerosis. OPERATION:: Clear cornea phacoemulsification of cataract OD eye. ESTIMATED BLOOD LOSS:: Zero. SPECIMEN TAKEN:: None. NARRATIVE:: After obtaining the appropriate consent, the patient was brought to the Operating Room where the patient was placed under cardiac monitoring and prepped and draped in the usual sterile manner. At the 11 o'clock position a 15 degree super sharp blade was used to create a paracentesis followed by instillation of 1% Xylocaine MPF 50:50 mix with BSS into the anterior chamber. This was followed by Duovisc to stabilize the anterior chamber. At the 9 o'clock position a self-sealing corneal flap incision was created using 2.8 mm nathen keratome. A cystatome was used to initiate a continuous tear capsulorrhexis which was completed with the Utrata forceps. A Binkhorst cannula was used to hydrodissect the lens nucleus followed by hydrodelineation. Phacoemulsification of the lens was performed utilizing phaco-chop in 30.09 Seconds at 19% power. The remaining cortical material was removed using the irrigation aspiration mode followed by additional 1% Xylocaine MPF into the anterior chamber followed by viscoelastic to stabilize the capsular bag. An SHANTA PZB 00 20.5 diopter posterior chamber lens was placed into the capsular bag without difficulty. The remaining viscoelastic material was removed from the anterior chamber with the irrigation/aspiration. Balanced salt solution was used to normalize the intraocular pressure. The incision was checked for watertight integrity. The patient then received two drops of 0.5% timolol followed by two drops Vigamox, was lightly patched and shielded in the usual manner. There were no complications from the procedure. The patient tolerated the procedure well and was returned to recovery in good condition. MMODL / IJN: [id number] /
== END 2017-11-22 09:22 | disposition home or self-care (01) ==
LOC: OR 07:14
PROVIDERS: ATTEND Ophthalmology
DX: H25.11 Age-related nuclear cataract, right eye (principal); H25.011 Cortical age-related cataract, right eye; H52.13 Myopia, bilateral; H52.4 Presbyopia; I25.2 Old myocardial infarction; Z95.5 Presence of coronary angioplasty implant and graft; H91.90 Unspecified hearing loss, unspecified ear; J34.9 Unspecified disorder of nose and nasal sinuses; I11.9 Hypertensive heart disease without heart failure; I25.10 Atherosclerotic heart disease of native coronary artery without angina pectoris; J44.9 Chronic obstructive pulmonary disease, unspecified; J30.2 Other seasonal allergic rhinitis; Z87.891 Personal history of nicotine dependence; Z79.82 Long term (current) use of aspirin; Z79.51 Long term (current) use of inhaled steroids; Z79.899 Other long term (current) drug therapy
CPT/HCPCS: 66984; C1780; J2250; J0171; J2001

== ENCOUNTER 2017-12-20 08:57 | Day surgery (SDC) | payer MEDICARE, OTHER ==
[2017-12-14 09:27] VITALS: BMI 16.1
[~2017-12-20 08:57] MED LIST changes: +LIDOCAINE 1% 20 ML VIAL (10MG/ML) FOR IV START INTRADERMA PRN; -ONDANSETRON 4 MG/2 ML VIAL IVP PRN; +TIMOLOL 0.5% OPHTH DROPS 5 ML BTL OP ONE; -TIMOLOL 0.5% OPHTH SOLN (PF) 0.2 ML DROPERETTE OP ONE
[2017-12-20 09:55] VITALS: TEMP 97.8
[2017-12-20] MEDS: PHENYLEPHRINE 2.5% OPHTH DRP 2ML OP NR ×3 (09:56→10:13)
[2017-12-20] MEDS: CYCLOPENTOLATE 1% OPHTH SOLN 2 ML BTL OP ONE ×3 (09:59→10:17)
[2017-12-20] MEDS ORDERED: fentaNYL (PF) 50 MCG/ML 2 ML AMP ONE (11:13)
[2017-12-20] MEDS ORDERED: MIDAZOLAM 2 MG/2 ML VIAL ONE (11:13)
[2017-12-20] MEDS ORDERED: BALANCED SALT IRRIG SOLN COMB2 15 ML IRRIG.SOLN INTRAOCULA ONE (11:18)
[2017-12-20] MEDS ORDERED: DUOVISC KIT (GREEN BOX) INTRAOCULA ONE (11:18)
[2017-12-20] MEDS ORDERED: LIDOCAINE 1% (PF) 10MG/ML VIAL SQ ONE (11:18)
[2017-12-20] MEDS ORDERED: EPINEPHrine (PF) 0.3 ML in BALANCED SALT IRRIG SOLN COMB2 500 ML IRRIGATION ONE (11:19)
--- NOTE | 2017-12-20 11:49 | P.OP ---
Date of Procedure: 12/20/17 Preoperative Diagnosis: NS & CS Postoperative Diagnosis: same Procedure(s) Performed: PIOL OS Implants: PCB00 19.50 Anesthesia: MAC Surgeon: Hesham Milligan Estimated Blood Loss (ml): 0 Condition: stable Disposition: same day Indications for Procedure: blurry vision Operative Findings: no cmoplications
[2017-12-20 11:57] VITALS: RESP 16
[2017-12-20 12:26] VITALS: BP 125/59; PULSE 56
--- NOTE | 2017-12-21 07:39 | OP ---
OPERATIVE REPORT DATE OF SURGERY: December 20, 2017. PREOPERATIVE DIAGNOSES:: 1. Nuclear sclerosis. 2. Cortical sclerosis. POSTOPERATIVE DIAGNOSES:: 1. Nuclear sclerosis. 2. Cortical sclerosis. OPERATION:: Phacoemulsification of cataract and intraocular lens implant of the left eye. ESTIMATED BLOOD LOSS:: Zero. SPECIMEN TAKEN:: None. NARRATIVE:: After obtaining the appropriate consent, the patient was brought to the Operating Room where the patient was placed under cardiac monitoring and prepped and draped in the usual sterile manner. At the 5 o'clock position a 15 degree super sharp blade was used to create a paracentesis followed by instillation of 1% Xylocaine MPF 50:50 mix with BSS into the anterior chamber. This was followed by Duovisc to stabilize the anterior chamber. At the 3 o'clock position a self-sealing corneal flap incision was created using 2.8 mm nathen keratome. A cystatome was used to initiate a continuous tear capsulorrhexis which was completed with the Utrata forceps. A Binkhorst cannula was used to hydrodissect the lens nucleus followed by hydrodelineation. Phacoemulsification of the lens was performed utilizing phacochop in 34.49 seconds at 20% power. The remaining cortical material was removed using the irrigation aspiration mode followed by additional 1% Xylocaine MPF into the anterior chamber followed by viscoelastic to stabilize the capsular bag. An SHANTA PCB 00 19.5 diopters posterior chamber lens was placed into the capsular bag without difficulty. The remaining viscoelastic material was removed from the anterior chamber with the irrigation/aspiration. Balanced salt solution was used to normalize the intraocular pressure. The incision was checked for watertight integrity. The patient then received two drops of 0.5% timolol followed by two drops Vigamox, was lightly patched and shielded in the usual manner. There were no complications from the procedure. The patient tolerated the procedure well and was returned to recovery in good condition. MMODL / IJN: [id number] /
== END 2017-12-20 12:47 | disposition home or self-care (01) ==
LOC: OR 08:57
PROVIDERS: ATTEND Ophthalmology
DX: H25.12 Age-related nuclear cataract, left eye (principal); H25.012 Cortical age-related cataract, left eye; H52.13 Myopia, bilateral; H00.026 Hordeolum internum left eye, unspecified eyelid; H00.023 Hordeolum internum right eye, unspecified eyelid; H52.4 Presbyopia; Z96.1 Presence of intraocular lens; H91.90 Unspecified hearing loss, unspecified ear; J34.9 Unspecified disorder of nose and nasal sinuses; I25.10 Atherosclerotic heart disease of native coronary artery without angina pectoris; I11.0 Hypertensive heart disease with heart failure; I50.9 Heart failure, unspecified; J43.9 Emphysema, unspecified; J30.2 Other seasonal allergic rhinitis; E78.5 Hyperlipidemia, unspecified; I25.2 Old myocardial infarction; Z95.5 Presence of coronary angioplasty implant and graft; Z99.81 Dependence on supplemental oxygen; Z79.82 Long term (current) use of aspirin; Z79.51 Long term (current) use of inhaled steroids; Z79.899 Other long term (current) drug therapy; Z87.891 Personal history of nicotine dependence
CPT/HCPCS: 66984; C1780; J2250; J0171; J3010; J2001

== ENCOUNTER → 2018-02-26 | Outpatient (CLI) | payer MEDICARE, OTHER ==
[2018-02-26 11:36] LABS: Blood Urea Nitrogen 26 mg/dL (9-20)
--- NOTE | 2018-02-26 12:34 | CT ---
EXAMINATION TYPE: CT chest w con DATE OF EXAM: 02/26/2018 COMPARISON: 08/20/2010 HISTORY: COPD, abn find CT DLP: 142.6 mGycm. Automated Exposure Control for Dose Reduction was Utilized. TECHNIQUE: CT scan of the thorax is performed following with IV Contrast, patient injected with 100 mL of Isovue 300. FINDINGS: LUNGS: The lungs are grossly clear, there is no concerning parenchymal mass or nodule identified. T here is no pleural effusion or pneumothorax seen. Polypoid density projects from the anterior right l ateral tracheal at the level of the suprasternal notch in the inferior thyroid gland measuring at regla st 6 mm. This is seen on series 6 image 19 and series 4 image 9. Remainder of the major airways are p atent. MEDIASTINUM: There are moderate to severe centrilobular emphysematous changes throughout the lungs mo st pronounced at the lung apices with some areas of subpleural sparing. No peribronchial cuffing or b ronchiectasis. There is mild dilatation of the ascending thoracic aorta as it measures 4.0 cm just me eting criteria for aneurysmal dilatation. The aortic root also measures 4.0 cm just above the sinotub ular junction. There are no greater than 1 cm hilar or mediastinal lymph nodes. No pericardial effu viola is seen. OTHER: There is partial visualization of an at least 2.9 cm probable right renal cyst. IMPRESSION: 1. 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 Direct visualization is recommended. 2. Moderate to severe centrilobular emphysematous change without pulmonary mass or focal consolidatio n. 3. 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
== END | disposition home or self-care (01) ==
LOC: RADCTMAIN 11:01
PROVIDERS: ATTEND Internal Medicine Critical Care Medicine
DX: J43.2 Centrilobular emphysema (principal); I71.2 Thoracic aortic aneurysm, without rupture; Q25.43 Congenital aneurysm of aorta; J39.8 Other specified diseases of upper respiratory tract
CPT/HCPCS: 82565; 84520; 71260; 36415; 96372; 71046; Q9967; G0463; J1040; 99214

== ENCOUNTER 2018-06-28 12:09 | Inpatient (IN) | payer MEDICARE, OTHER ==
[2018-06-28] MEDS ORDERED: IPRATROPIUM 0.5 MG/2.5 ML NEBU INHALATION STA (12:38)
[2018-06-28] MEDS ORDERED: ALBUTEROL NEBULIZED 2.5 MG/3 ML INHALATION STA (12:38)
[2018-06-28] MEDS ORDERED: DEXAMETHASONE SOD PHOSPHATE 10 MG/ML 1 ML VIAL IV STA (12:40)
[2018-06-28 13:04] LABS: Basophils % (A) 0 %; Eosinophils # (A) 0.1 k/uL (0-0.7); Eosinophils % (A) 1 %; HCT 39.1 % (39.0-53.0); HGB 12.6 gm/dL (13.0-17.5); Lymphocytes # (A) 0.9 k/uL (1.0-4.8); Lymphocytes % (A) 6 %; MCH 32.1 pg (25.0-35.0); MCHC 32.2 g/dL (31.0-37.0); MCV 99.6 fL (80.0-100.0); Mean Platelet Volume 7.5; Monocytes # (A) 0.8 k/uL (0-1.0); Monocytes % (A) 6 %; Neutrophils # (A) 12.7 k/uL (1.3-7.7); Neutrophils % (A) 87 %; Platelet Count 372 k/uL (150-450); RBC 3.93 m/uL (4.30-5.90); RDW 12.9 % (11.5-15.5); WBC 14.6 k/uL (3.8-10.6)
[2018-06-28 13:21] LABS: Prothrombin Time 9.6 sec (9.0-12.0)
--- NOTE | 2018-06-28 13:21 | XR ---
EXAMINATION TYPE: XR chest 1V portable DATE OF EXAM: 06/28/2018 COMPARISON: 05/24/2017 INDICATION: Difficulty breathing TECHNIQUE: Single frontal view of the chest is obtained. FINDINGS: The heart size is normal. The pulmonary vasculature is normal. There is hyperinflation. Some mild increased densities in the right midlung. Follow-up is recommended . This is an interval change. EKG pad overlies left chest. EKG leads overlie the chest. IMPRESSION: 1. No acute pulmonary process. 2. COPD. 3. Interval development of a 0.9 cm density right midlung. Consider follow-up CT chest.
[2018-06-28 13:22] LABS: Albumin 4.8 g/dL (3.5-5.0); Calcium 9.9 mg/dL (8.4-10.2); Magnesium 2.3 mg/dL (1.6-2.3); Potassium 5.8 mmol/L (3.5-5.1); Total Protein 7.1 g/dL (6.3-8.2)
[2018-06-28 13:30] LABS: Partial Thromboplastin Time 21.6 sec (22.0-30.0)
[2018-06-28 13:33] LABS: Creatine Kinase 569 U/L (55-170)
[2018-06-28 13:47] LABS: Troponin I <0.012 ng/mL (0.000-0.034)
[2018-06-28 13:52] LABS: Creatine Kinase MB 5.2 ng/mL (0.0-2.4)
[2018-06-28] MEDS ORDERED: CALCIUM CHLORIDE 500 MG in SODIUM CHLORIDE 0.9% 50 ML IVPB ONE ×3 (14:12→17:30)
--- NOTE | 2018-06-28 14:12 | ED ---
General Adult HPI - General Chief complaint: Shortness of Breath Stated complaint: Dehydrated, Diff Breathing Source: patient, Caregiver Mode of arrival: wheelchair Limitations: physical limitation - History of Present Illness Initial comments: Dictation was produced using [employer] (fka [employer]) dictation software. please excuse any grammatical, word or spelling errors. Chief Complaint: 82-year-old male with past medical history of COPD on home oxygen, hypertension, coronary artery disease and MA presents with shortness breath 2 days. History of Present Illness: Patient is brought in by family. Patient has been having increasing symptoms of shortness of breath since yesterday. Patient has been exposed to carpet dust after playing with his young nephew. Patient denies any constitutional symptoms. Denies any worsening cough. Denies any fever, chills or night sweats. The ROS documented in this emergency department record has been reviewed and confirmed by me. Those systems with pertinent positive or negative responses have been documented in the HPI. All other systems are other negative and/or noncontributory. - Related Data Home Medications Medication Instructions Recorded Confirmed Aspirin 325 mg PO QAM 01/30/17 06/28/18 Atenolol 12.5 mg PO QAM 01/30/17 06/28/18 Lisinopril [Prinivil] 5 mg PO QAM 01/30/17 06/28/18 Nitroglycerin Sl Tabs [Nitrostat] 0.4 mg SUBLINGUAL Q5M PRN 01/30/17 06/28/18 Budesonide [Pulmicort] 0.5 mg INHALATION RT-BID PRN 05/24/17 12/20/17 Umeclidinium [place] [Incruse 1 puff INHALATION Q48H 05/24/17 06/28/18 Ellipta] Atorvastatin [Lipitor] 40 mg PO HS 11/21/17 06/28/18 Acetaminophen [Tylenol] 650 mg PO Q4H PRN 06/28/18 06/28/18 Albuterol Inhaler [Ventolin Hfa 1 - 2 puff INHALATION RT-Q6H PRN 06/28/18 Inhaler] Formoterol Fumarate [Perforomist] 20 mcg INHALATION RT-BID 06/28/18 06/28/18 Allergies Allergy/AdvReac Type Severity Reaction Status Date / Time No Known Allergies Allergy Verified 06/28/18 13:46 Review of Systems ROS Statement: Those systems with pertinent positive or pertinent negative responses have been documented in the HPI. ROS Other: All systems not noted in ROS Statement are negative. Past Medical History Past Medical History: Coronary Artery Disease (CAD), Heart Failure, COPD, Hypertension, Myocardial Infarction (MA) Additional Past Medical History / Comment(s): COPD, CHF, PULMONARY HTN, HX SHINGLES.,WEARS O2 VIA NC AT 2L PRN DAYTIME, AND AT 3L AT NIGHT , SOB WITH ACTIVITY. Last Myocardial Infarction Date:: 2016 History of Any Multi-Drug Resistant Organisms: None Reported Past Surgical History: Heart Catheterization, Heart Catheterization With Stent Additional Past Surgical History / Comment(s): stent RCA Past Anesthesia/Blood Transfusion Reactions: No Reported Reaction Date of Last Stent Placement:: 2009 Past Psychological History: No Psychological Hx Reported Smoking Status: Former smoker Past Alcohol Use History: None Reported Past Drug Use History: None Reported - Past Family History Brother(s) Family Medical History: Cancer Additional Family Medical History / Comment(s): lung CA General Exam - General Exam Comments Initial Comments: PHYSICAL EXAM: General Impression: Alert and oriented x3, acute distress secondary to dyspnea, Cachectic 60 HEENT: Normocephalic atraumatic, extra-ocular movements intact, pupils equal and reactive to light bilaterally, mucous membranes moist. Cardiovascular: Heart regular rate and rhythm, S1&S2 audible, no murmurs, rubs or gallops Chest: Diminished breath sounds bilaterally Abdomen: Bowel sounds present, abdomen soft, non-tender, non-distended, no organomegaly Musculoskeletal: Pulses present and equal in all extremities, no peripheral edema, tenderness to palpation over the right lateral hip Motor: Moves all tremors grossly Neurological: CN II-XII grossly intact, no focal motor or sensory deficits noted Skin: Intact with no visualized rashes Psych: Normal affect and mood Limitations: physical limitation Course Vital Signs 06/28/18 06/28/18 06/28/18 12:14 12:46 12:49 Temperature 97.4 F L Pulse Rate 67 62 Respiratory 28 H 28 H 26 H Rate Blood Pressure 125/72 O2 Sat by Pulse 88 L Oximetry 06/28/18 06/28/18 13:10 13:25 Temperature Pulse Rate 58 L 62 Respiratory 22 Rate Blood Pressure O2 Sat by Pulse Oximetry Medical Decision Making - Medical Decision Making ED course: 82-year-old male with clinical presentation consistent with COPD exacerbation. Patient had signs of increased work of breathing. He has diminished lung sounds bilaterally and poor inspiration. Vital signs upon arrival shows tachypnea of 26. Pulse vital signs within normal limits. Patient given breathing treatments. Reevaluation shows improvement of symptoms. He is also given IV corticosteroids. Patient be admitted for COPD exacerbation. Laboratory evaluation obtained. CBC unremarkable. Coag unremarkable. Metabolic panel shows findings of acute kidney injury. Patient given intravenous fluids. Potassium level 5.8. There is mild peaked T in V3 and V4. Patient given calcium cardiac enzymes are negative. EKG Interpretation: A 12 lead EKG was obtained. It was interpreted by myself and attending physician. There is a P wave before every QRS complex. Rate is 56. Rhythm is sinus bradycardia, [place] interval 150, Q holiness 62, QTc 416. QT is not prolonged. No ST segment depression or elevation. This EKG was compared to a previous EKG that was obtained on 05/25/2017 and showed no significant change. Overall, this EKG is unremarkable - Lab Data Result diagrams: 06/28/18 12:36 06/28/18 12:36 Lab Results 06/28/18 06/28/18 06/28/18 Range/Units 12:36 12:36 12:36 WBC 14.6 H (3.8-10.6) k/uL RBC 3.93 L (4.30-5.90) m/uL Hgb 12.6 L (13.0-17.5) gm/dL Hct 39.1 (39.0-53.0) % MCV 99.6 (80.0-100.0) fL MCH 32.1 (25.0-35.0) pg MCHC 32.2 (31.0-37.0) g/dL RDW 12.9 (11.5-15.5) % Plt Count 372 (150-450) k/uL Neutrophils % 87 % Lymphocytes % 6 % Monocytes % 6 % Eosinophils % 1 % Basophils % 0 % Neutrophils # 12.7 H (1.3-7.7) k/uL Lymphocytes # 0.9 L (1.0-4.8) k/uL Monocytes # 0.8 (0-1.0) k/uL Eosinophils # 0.1 (0-0.7) k/uL Basophils # 0.0 (0-0.2) k/uL PT (9.0-12.0) sec INR (<1.2) APTT (22.0-30.0) sec Sodium 134 L (137-145) mmol/L Potassium 5.8 H (3.5-5.1) mmol/L Chloride 93 L (98-107) mmol/L Carbon Dioxide 25 (22-30) mmol/L Anion Gap 16 mmol/L BUN 41 H (9-20) mg/dL Creatinine 1.49 H (0.66-1.25) mg/dL Est GFR (CKD-EPI)AfAm 50 (>60 ml/min/1.73 sqM) Est GFR (CKD-EPI)NonAf 43 (>60 ml/min/1.73 sqM) Glucose 127 H (74-99) mg/dL Calcium 9.9 (8.4-10.2) mg/dL Magnesium 2.3 (1.6-2.3) mg/dL Total Bilirubin 1.0 (0.2-1.3) mg/dL AST 59 (17-59) U/L ALT 29 (21-72) U/L Alkaline Phosphatase 56 (38-126) U/L Total Creatine Kinase 569 H (55-170) U/L CK-MB (CK-2) 5.2 H* (0.0-2.4) ng/mL CK-MB (CK-2) Rel Index 0.9 Troponin I <0.012 (0.000-0.034) ng/mL NT-Pro-B Natriuret Pep pg/mL Total Protein 7.1 (6.3-8.2) g/dL Albumin 4.8 (3.5-5.0) g/dL 06/28/18 06/28/18 Range/Units 12:36 12:36 WBC (3.8-10.6) k/uL RBC (4.30-5.90) m/uL Hgb (13.0-17.5) gm/dL Hct (39.0-53.0) % MCV (80.0-100.0) fL MCH (25.0-35.0) pg MCHC (31.0-37.0) g/dL RDW (11.5-15.5) % Plt Count (150-450) k/uL Neutrophils % % Lymphocytes % % Monocytes % % Eosinophils % % Basophils % % Neutrophils # (1.3-7.7) k/uL Lymphocytes # (1.0-4.8) k/uL Monocytes # (0-1.0) k/uL Eosinophils # (0-0.7) k/uL Basophils # (0-0.2) k/uL PT 9.6 (9.0-12.0) sec INR 1.0 (<1.2) APTT 21.6 L (22.0-30.0) sec Sodium (137-145) mmol/L Potassium (3.5-5.1) mmol/L Chloride (98-107) mmol/L Carbon Dioxide (22-30) mmol/L Anion Gap mmol/L BUN (9-20) mg/dL Creatinine (0.66-1.25) mg/dL Est GFR (CKD-EPI)AfAm (>60 ml/min/1.73 sqM) Est GFR (CKD-EPI)NonAf (>60 ml/min/1.73 sqM) Glucose (74-99) mg/dL Calcium (8.4-10.2) mg/dL Magnesium (1.6-2.3) mg/dL Total Bilirubin (0.2-1.3) mg/dL AST (17-59) U/L ALT (21-72) U/L Alkaline Phosphatase (38-126) U/L Total Creatine Kinase (55-170) U/L CK-MB (CK-2) (0.0-2.4) ng/mL CK-MB (CK-2) Rel Index Troponin I (0.000-0.034) ng/mL NT-Pro-B Natriuret Pep 3670 pg/mL Total Protein (6.3-8.2) g/dL Albumin (3.5-5.0) g/dL Disposition Clinical Impression: COPD exacerbation Disposition: ADMITTED IP TO THIS HOSP Referrals: Shorty Desai MD [Primary Care Provider] - 1-2 days Time of Disposition: 14:12
[2018-06-28] MEDS ORDERED: SODIUM CHLORIDE 0.9% 500 ML IV STA (14:13)
[2018-06-28] MEDS ORDERED: AZITHROMYCIN 500 MG TAB PO SCH (14:15)
[2018-06-28] MEDS ORDERED: LORazepam 2 MG/ML INJ IV STA (15:10)
--- NOTE | 2018-06-28 15:24 | XR ---
EXAMINATION TYPE: XR Hip Limited RT DATE OF EXAM: 06/28/2018 COMPARISON: None HISTORY: Pain TECHNIQUE: AP right hip FINDINGS: No acute fractures are evident. Joint spaces preserved. Soft tissues are normal. Femoral he ad articulates with the acetabulum IMPRESSION: 1. Normal AP right hip
[2018-06-28] MEDS ORDERED: IPRATROPIUM-ALBUTEROL 3 ML NEB INHALATION SCH (16:00)
[2018-06-28] MEDS ORDERED: NITROGLYCERIN SL TABS 0.4 MG TAB SUBLINGUAL PRN (16:12)
[2018-06-28] MEDS ORDERED: IPRATROPIUM-ALBUTEROL 3 ML NEB INHALATION PRN (16:12)
--- NOTE | 2018-06-28 16:34 | P.CNPUL ---
History of Present Illness Consult date: 06/28/18 Reason for consult: dyspnea, COPD, hypoxemia Chief complaint: Shortness of breath History of present illness: Mr. Posada is a 82-year-old white male patient of Dr. Desai, presented to the emergency department on 06/28/2018 at 1209 for evaluation of progressive shortness of breath since yesterday. Patient was exposed to carpet dust when he was playing with his young nephew. He denied any worsening cough, denies any fever, chills or night sweats. Patient has history of advanced stage COPD with chronic hypoxemic respiratory failure on home oxygen, hypertension, coronary artery disease, previous history of myocardial infarction, impaired left ventricular systolic function with an EF between 30-35%, and secondary pulmonary hypertension with right ventricular systolic pressure of 56.6 mmHg. He has a history of nicotine dependence, currently in remission. Patient is on Incruz and Ventolin inhalers and he has nebulized Pulmicort, Perforomist at home. He wears 2 L of oxygen during the daytime as needed, and 3 L at bedtime. He has a baseline shortness of breath with activity. Chest x-ray was completed, and it showed no acute pulmonary process, COPD, and an interval development of 0.9 cm density in the right midlung, as read by the radiologist, patient had a recent CT of the chest showed moderate to severe centrilobular emphysematous changes without pulmonary mass or focal consolidation, and a possible tracheal polyp. On presentation patient was noted to have increased work of breathing, diminished lung sounds, and he was tachypneic. Patient was given nebulized breathing treatments, systemic corticosteroids, he was given empiric antibiotics in the form of azithromycin. He was placed on BiPAP support , with pressures of 12 and 6, and FiO2 of 50%, he was given 1 mg of IV Ativan. His lab work revealed WBC of 14.6, hemoglobin is 12.6, sodium is 134, potassium is 5.8, chloride is 93, BUN is 41, creatinine is 1.49, total CK was 569, CK-MB was 5.9, troponin was negative 1, proBNP was 3670. EKG was obtained, and showed sinus bradycardia, patient's borderline elevated potassium was treated with amp of calcium chloride, he was given 500 mL of 0.9 normal saline IV bolus , we've been consult in regards to acute exacerbation of chronic obstructive pulmonary disease. Review of Systems All systems: negative Constitutional: Denies chills, Denies fever Eyes: denies blurred vision, denies pain Ears, nose, mouth and throat: Denies headache, Denies sore throat Cardiovascular: Denies chest pain, Denies shortness of breath Respiratory: Reports dyspnea, Reports home oxygen, Denies cough Gastrointestinal: Denies abdominal pain, Denies diarrhea, Denies nausea, Denies vomiting Musculoskeletal: Denies myalgias Musculoskeletal: right: hip pain Integumentary: Denies pruritus, Denies rash Neurological: Denies numbness, Denies weakness Psychiatric: Denies anxiety, Denies depression Endocrine: Denies fatigue, Denies weight change Past Medical History Past Medical History: Coronary Artery Disease (CAD), Heart Failure, COPD, Hypertension, Myocardial Infarction ([place]) Additional Past Medical History / Comment(s): COPD, CHF, PULMONARY HTN, HX SHINGLES.,WEARS O2 VIA NC AT 2L PRN DAYTIME, AND AT 3L AT NIGHT , SOB WITH ACTIVITY. Last Myocardial Infarction Date:: 2016 History of Any Multi-Drug Resistant Organisms: None Reported Past Surgical History: Heart Catheterization, Heart Catheterization With Stent Additional Past Surgical History / Comment(s): stent RCA Past Anesthesia/Blood Transfusion Reactions: No Reported Reaction Date of Last Stent Placement:: 2009 Past Psychological History: No Psychological Hx Reported Smoking Status: Former smoker Past Alcohol Use History: None Reported Past Drug Use History: None Reported - Past Family History Brother(s) Family Medical History: Cancer Additional Family Medical History / Comment(s): lung CA Medications and Allergies Home Medications Medication Instructions Recorded Confirmed Type Aspirin 325 mg PO QAM 01/30/17 06/28/18 History Atenolol 12.5 mg PO QAM 01/30/17 06/28/18 History Lisinopril [Prinivil] 5 mg PO QAM 01/30/17 06/28/18 History Nitroglycerin Sl Tabs [Nitrostat] 0.4 mg SUBLINGUAL Q5M PRN 01/30/17 06/28/18 History Budesonide [Pulmicort] 0.5 mg INHALATION RT-BID PRN 05/24/17 06/28/18 History Umeclidinium [place] [Incruse 1 puff INHALATION Q48H 05/24/17 06/28/18 History Ellipta] Atorvastatin [Lipitor] 40 mg PO HS 11/21/17 06/28/18 History Acetaminophen [Tylenol] 650 mg PO Q4H PRN 06/28/18 06/28/18 History Albuterol Inhaler [Ventolin Hfa 1 - 2 puff INHALATION RT-Q6H PRN 06/28/18 History Inhaler] Formoterol Fumarate [Perforomist] 20 mcg INHALATION RT-BID 06/28/18 06/28/18 History Allergies Allergy/AdvReac Type Severity Reaction Status Date / Time No Known Allergies Allergy Verified 06/28/18 13:46 Physical Exam Vitals: Vital Signs Temp Pulse Resp BP Pulse Ox 06/28/18 14:47 82 6 L 176/82 91 L 06/28/18 13:25 62 22 06/28/18 13:10 58 L 06/28/18 13:00 66 22 166/74 06/28/18 12:49 62 26 H 06/28/18 12:46 28 H 06/28/18 12:14 97.4 F L 67 28 H 125/72 88 L Intake and Output 06/28/18 06/28/18 06/28/18 06:59 14:59 22:59 Other: Weight 43.091 kg GENERAL EXAM: Alert, pleasant, cachectic 82-year-old white male, sedated, lethargic, but arousable to loud verbal stimulation, on BiPAP support, with pressures of 12 and 6, and 50%, comfortable in no apparent distress. HEAD: Normocephalic/atraumatic. EYES: Normal reaction of pupils, equal size. Conjunctiva pink, sclera white. NOSE: Clear with pink turbinates. THROAT: No erythema or exudates. NECK: No masses, no JVD, no thyroid enlargement, no adenopathy. CHEST: No chest wall deformity. Symmetrical expansion. LUNGS: Diminished breath sounds bilaterally, prolongation of the expiratory phase CVS: Regular rate and rhythm, normal S1 and S2, no gallops, no murmurs, no rubs ABDOMEN: Soft, nontender. No hepatosplenomegaly, normal bowel sounds, no guarding or rigidity. EXTREMITIES: No clubbing, no edema, no cyanosis, 2+ pulses and upper and lower extremities. MUSCULOSKELETAL: Muscle strength and tone normal. SPINE: No scoliosis or deformity SKIN: No rashes CENTRAL NERVOUS SYSTEM: No focal deficits, tone is normal in all 4 extremities. PSYCHIATRIC: Appropriate affect. Intact judgment and insight. Results - Laboratory Findings CBC and BMP: 06/28/18 12:36 06/28/18 12:36 PT/INR, D-dimer PT 9.6 sec (9.0-12.0) 06/28/18 12:36 INR 1.0 (<1.2) 06/28/18 12:36 Abnormal lab findings: Abnormal Labs 06/28/18 06/28/18 06/28/18 12:36 12:36 12:36 WBC 14.6 H RBC 3.93 L Hgb 12.6 L Neutrophils # 12.7 H Lymphocytes # 0.9 L APTT Sodium 134 L Potassium 5.8 H Chloride 93 L BUN 41 H Creatinine 1.49 H Glucose 127 H Total Creatine Kinase 569 H CK-MB (CK-2) 5.2 H* 06/28/18 12:36 WBC RBC Hgb Neutrophils # Lymphocytes # APTT 21.6 L Sodium Potassium Chloride BUN Creatinine Glucose Total Creatine Kinase CK-MB (CK-2) - Diagnostic Findings Chest x-ray: report reviewed, image reviewed Additional studies: Hip x-ray results reviewed, EKG reviewed Assessment and Plan Plan: Assessment: #1. Acute on chronic hypoxic respiratory failure secondary to acute exacerbation of chronic obstructive pulmonary disease #2. Acute dyspnea, secondary to the above #3. Mild leukocytosis #4. Mild hyponatremia, possibly related to dehydration #5. Acute kidney injury, possibly related to ATN #6. Hyperkalemia #7. Coronary artery disease, with prior stenting #8. Chronic congestive heart failure with systolic dysfunction, with an EF of 30-35% and secondary pulmonary hypertension #9. Hypertension, hyperlipidemia #10. Cachexia Plan: Continue BiPAP support, we'll switch prednisone to IV steroids at 60 mg every 6 hours, continue empiric antibiotics, continue nebulized bronchodilators, will restart Pulmicort and Perforomist, will recheck electrolytes, and renal profile. Patient is tolerating BiPAP support well, will continue close monitoring. I performed a history & physical examination of the patient and discussed their management with my nurse practitioner, Roberta Fischer. I reviewed the nurse practitioner's note and agree with the documented findings and plan of care. Lung sounds are diminished. The findings and the impression was discussed with the patient. I attest to the documentation by the nurse practitioner. Time with Patient: Greater than 30
[2018-06-28 17:25] LABS: Calcium 8.9 mg/dL (8.4-10.2); Potassium 4.7 mmol/L (3.5-5.1)
[2018-06-28] MEDS: BUDESONIDE 1 MG/2 ML NEBU INHALATION SCH (18:47)
[2018-06-28] MEDS: FORMOTEROL FUMARATE 20 MCG/2 ML NEBU INHALATION SCH (18:47)
[2018-06-28] MEDS: IPRATROPIUM-ALBUTEROL 3 ML NEB INHALATION SCH (18:47)
[2018-06-28] MEDS: methylPREDNISolone SOD SUCCI 125 MG/2 ML VIAL IV SCH ×2 (19:58→23:41)
[2018-06-28] MEDS: ATORVASTATIN 40 MG TAB PO SCH (20:00)
[2018-06-28] MEDS ORDERED: MELATONIN 3 MG TABLET PO PRN (22:39)
[2018-06-28] MEDS ORDERED: ACETAMINOPHEN TAB 325 MG TAB PO PRN (22:39)
[2018-06-28] MEDS ORDERED: ONDANSETRON 4 MG/2 ML VIAL IVP PRN (22:39)
[2018-06-28] MEDS ORDERED: CALCIUM CARBONATE 500 MG CHEWABLE PO PRN (22:39)
[2018-06-28] MEDS ORDERED: LACTULOSE 20 GM/30 ML CUP PO PRN (22:39)
--- NOTE | 2018-06-28 23:37 | HP ---
HISTORY AND PHYSICAL DATE OF ADMISSION: 06/28/2018 PRESENTING COMPLAINT: Short of breath. HISTORY OF PRESENTING COMPLAINT: Pleasant 82-year-old patient of Dr. Desai who also follows with welt beater Dr. Barr. Chronic stable medical conditions include coronary artery disease, congestive heart failure, EF 35%, hypertension, hyperlipidemia, secondary pulmonary hypertension and chronic hypoxic respiratory failure on 2L oxygen at home. The patient is able to get around the house. The patient has been progressively getting more and more short of breath. No cough. No fever. No chills. Poor appetite, weight loss, presented with COPD exacerbation. In the ER, the patient was significantly short of breath and distressed, was given a BiPAP to which he settled down. Patient also did get a little bit of Ativan. The patient's daughter is at the bedside to aid in the history. REVIEW OF SYSTEMS: CONSTITUTIONAL: Tired, some weight loss. HEENT: None. RESPIRATORY: As above. CARDIOVASCULAR: None. GASTROINTESTINAL: None. GENITOURINARY: None. MUSCULOSKELETAL: None. DERMATOLOGICAL: None. HEMATOLOGIC: None. LYMPHATIC: None. PSYCHIATRY: Some anxiety. NEUROLOGICAL: None. PAST MEDICAL HISTORY: Coronary artery disease, congestive heart failure, EF 35%, COPD, hypertension, hyperlipidemia, secondary pulmonary hypertension, chronic hypoxic respiratory failure on 2L oxygen at home, irregular heartbeat. PAST SURGICAL HISTORY: Cardiac cath with stent to the RCA, bilateral cataract surgery. SOCIAL HISTORY: Patient smoked for close to 50 years, about a pack a day, stopped 10 years ago. . Used to work in . FAMILY HISTORY: Lung cancer. HOME MEDICATIONS: 1. Pulmicort 0.5 nebulizer b.i.d. p.r.n. 2. Incruse Ellipta 1 puff q.48 hours. 3. Nitrostat 0.4 sublingual q.5 p.r.n. 4. Prinivil 5 mg a day. 5. Perforomist 20 mcg b.i.d. 6. Lipitor 40 mg q.h.s. 7. Atenolol 12.5 p.o. daily. 8. Aspirin 325 mg p.o. daily. 9. Ventolin HFA 1 or 2 puffs every 6 hours p.r.n. 10.Tylenol 650 mg q.4 p.r.n. ALLERGIES: None. EXAMINATION: VITAL SIGNS: On presentation, temperature 97.4, pulse 87, respirations 28, blood pressure 125/72, pulse ox 88% on 2L. GENERAL APPEARANCE: Very thin built, BMI 15.3. Lying in bed, short of breath with BiPAP in place. EYES: Pupils equal. Conjunctivae normal. HEENT: External nose and ears normal. Oral cavity dry. NECK: JVD unable to assess. Mass not palpable. RESPIRATORY: Effort increased. The patient is not able to speak in full sentences. Accessory muscles are working. BiPAP in place. LUNGS: Poor air entry. Prolonged expiration, wheezing. CARDIOVASCULAR: First and second sounds normal. No edema. ABDOMEN: Soft, nontender. Liver and spleen not palpable. LYMPHATIC: No lymph node palpable in neck and axillae. PSYCHIATRY: Alert and oriented x3. Mood and affect anxious-appearing. NEUROLOGICAL: Pupils equal. Cranial nerve grossly intact. Power and sensation grossly intact. MUSCULOSKELETAL: Diffuse wasting of the muscles and prominent bones. INVESTIGATIONS: White count 14.6, hemoglobin 12.6. Potassium 5.8, repeat 4.7, BUN 41, creatinine 1.49. Troponin less than 0.012. Chest x-ray: Film interpreted by [facility] shows hyperinflation, prominent pulmonary arteries, no infiltrate. The patient's BUN and creatinine on 02/26/2018 was 20/0.89. ASSESSMENT: 1. Acute severe chronic obstructive pulmonary disease exacerbation in an ex-smoker. 2. Acute renal failure. The patient's BUN and creatinine was normal back in February of this year. 3. Hyperkalemia due to renal failure, present on admission. 4. Severe protein-calorie malnutrition from poor oral intake. The patient's BMI is only 15.2. 5. Chronic congestive heart failure from systolic dysfunction, ejection fraction 35%, underlying coronary artery disease. 6. Coronary artery disease, prior history of stent. 7. Hypertension. 8. Hyperlipidemia. 9. Secondary pulmonary hypertension secondary to chronic obstructive pulmonary disease. 10.Chronic hypoxic respiratory failure on 2L oxygen at home. 11.Acute hypoxic respiratory failure from underlying chronic obstructive pulmonary disease. PLAN: Patient is put on bronchodilators, oxygen support, inhaled steroids. No acute infection, so his antibiotics will be discontinued. Care was discussed with the daughter at the bedside. Questions were answered. Pulmonary will be consulted. We will add nutritional supplements, have the patient see a dietitian. MMODL / IJN: [id number] /
[2018-06-29] MEDS: IPRATROPIUM-ALBUTEROL 3 ML NEB INHALATION SCH ×6 (00:48→20:02)
[2018-06-29] MEDS: methylPREDNISolone SOD SUCCI 125 MG/2 ML VIAL IV SCH ×2 (06:32→12:36)
[2018-06-29] MEDS: FORMOTEROL FUMARATE 20 MCG/2 ML NEBU INHALATION SCH ×2 (08:02→20:02)
[2018-06-29] MEDS: BUDESONIDE 1 MG/2 ML NEBU INHALATION SCH ×2 (08:02→20:02)
[2018-06-29] MEDS: ATENOLOL 12.5 MG TAB PO SCH (08:54)
[2018-06-29] MEDS ORDERED: ASPIRIN 325 MG TAB PO SCH (09:00)
[2018-06-29] MEDS ORDERED: predniSONE 20 MG TAB PO SCH (09:00)
[2018-06-29] MEDS ORDERED: ENOXAPARIN 40 MG/0.4 ML SYRINGE SQ SCH (09:00)
[2018-06-29] MEDS ORDERED: LISINOPRIL 5 MG TAB PO SCH (09:00)
[2018-06-29 11:55] VITALS: BMI 15.1
--- NOTE | 2018-06-29 12:01 | P.PN ---
Subjective Progress Note Date: 06/29/18 Principal diagnosis: Acute on chronic hypoxic respiratory failure secondary to acute exacerbation of chronic obstructive pulmonary disease Mr. Posada is a 82-year-old white male patient of Dr. Desai, presented to the emergency department on 06/28/2018 at 1209 for evaluation of progressive shortness of breath since yesterday. Patient was exposed to carpet dust when he was playing with his young nephew. He denied any worsening cough, denies any fever, chills or night sweats. Patient has history of advanced stage COPD with chronic hypoxemic respiratory failure on home oxygen, hypertension, coronary artery disease, previous history of myocardial infarction, impaired left ventricular systolic function with an EF between 30-35%, and secondary pulmonary hypertension with right ventricular systolic pressure of 56.6 mmHg. He has a history of nicotine dependence, currently in remission. Patient is on Incruz and Ventolin inhalers and he has nebulized Pulmicort, Perforomist at home. He wears 2 L of oxygen during the daytime as needed, and 3 L at bedtime. He has a baseline shortness of breath with activity. Chest x-ray was completed, and it showed no acute pulmonary process, COPD, and an interval development of 0.9 cm density in the right midlung, as read by the radiologist, patient had a recent CT of the chest showed moderate to severe centrilobular emphysematous changes without pulmonary mass or focal consolidation, and a possible tracheal polyp. On presentation patient was noted to have increased work of breathing, diminished lung sounds, and he was tachypneic. Patient was given nebulized breathing treatments, systemic corticosteroids, he was given empiric antibiotics in the form of azithromycin. He was placed on BiPAP support , with pressures of 12 and 6, and FiO2 of 50%, he was given 1 mg of IV Ativan. His lab work revealed WBC of 14.6, hemoglobin is 12.6, sodium is 134, potassium is 5.8, chloride is 93, BUN is 41, creatinine is 1.49, total CK was 569, CK-MB was 5.9, troponin was negative 1, proBNP was 3670. EKG was obtained, and showed sinus bradycardia, patient's borderline elevated potassium was treated with amp of calcium chloride, he was given 500 mL of 0.9 normal saline IV bolus , we've been consult in regards to acute exacerbation of chronic obstructive pulmonary disease. On 06/29/2018 patient seen in follow-up on selective care unit. He is off the BiPAP support, currently on 3 L per nasal cannula, and his pulse ox is 99%, breathing much easier, no acute distress, lung sounds are very diminished bilaterally, wheezing appreciated. He is awake and alert, and he states he is not sure what exactly precipitated his exacerbation of COPD, but he did not confirm it was carpet dust. Not coughing, no phlegm production, no fever, no chills, no peripheral edema. Vital signs are stable, he is afebrile. No new chest x-rays or lab work today, yesterday his BMP was repeated, and showed improvement of his serum potassium, down to 4.7, BUN was down to 42, creatinine 1.32. Continue current plan of treatment, systemic IV steroids, nebulized bronchodilators. Objective - Vital Signs Vital signs: Vital Signs Temp 96.9 F L 06/29/18 08:00 Pulse 76 06/29/18 11:47 Resp 20 06/29/18 08:00 BP 120/58 06/29/18 08:00 Pulse Ox 99 06/29/18 08:00 Intake & Output 06/28/18 06/29/18 06/29/18 18:59 06:59 18:59 Intake Total 0 Output Total 150 Balance 0 -150 Weight 43.091 kg 42.5 kg 42.5 kg Intake: Oral 0 Output: Urine 150 Other: # Voids 2 - Exam GENERAL EXAM: Alert, pleasant, cachectic 82-year-old white male, awake and alert , responding appropriately, currently at 3 L per nasal cannula. HEAD: Normocephalic/atraumatic. EYES: Normal reaction of pupils, equal size. Conjunctiva pink, sclera white. NOSE: Clear with pink turbinates. THROAT: No erythema or exudates. NECK: No masses, no JVD, no thyroid enlargement, no adenopathy. CHEST: No chest wall deformity. Symmetrical expansion. LUNGS: Diminished breath sounds bilaterally, prolongation of the expiratory phase CVS: Regular rate and rhythm, normal S1 and S2, no gallops, no murmurs, no rubs ABDOMEN: Soft, nontender. No hepatosplenomegaly, normal bowel sounds, no guarding or rigidity. EXTREMITIES: No clubbing, no edema, no cyanosis, 2+ pulses and upper and lower extremities. MUSCULOSKELETAL: Muscle strength and tone normal. SPINE: No scoliosis or deformity SKIN: No rashes CENTRAL NERVOUS SYSTEM: No focal deficits, tone is normal in all 4 extremities. PSYCHIATRIC: Appropriate affect. Intact judgment and insight. - Labs CBC & Chem 7: 06/28/18 12:36 06/28/18 16:47 Labs: Abnormal Lab Results - Last 24 Hours (Table) 06/28/18 06/28/18 06/28/18 Range/Units 12:36 12:36 12:36 WBC 14.6 H (3.8-10.6) k/uL RBC 3.93 L (4.30-5.90) m/uL Hgb 12.6 L (13.0-17.5) gm/dL Neutrophils # 12.7 H (1.3-7.7) k/uL Lymphocytes # 0.9 L (1.0-4.8) k/uL APTT (22.0-30.0) sec Sodium 134 L (137-145) mmol/L Potassium 5.8 H (3.5-5.1) mmol/L Chloride 93 L (98-107) mmol/L BUN 41 H (9-20) mg/dL Creatinine 1.49 H (0.66-1.25) mg/dL Glucose 127 H (74-99) mg/dL Total Creatine Kinase 569 H (55-170) U/L CK-MB (CK-2) 5.2 H* (0.0-2.4) ng/mL 06/28/18 06/28/18 Range/Units 12:36 16:47 WBC (3.8-10.6) k/uL RBC (4.30-5.90) m/uL Hgb (13.0-17.5) gm/dL Neutrophils # (1.3-7.7) k/uL Lymphocytes # (1.0-4.8) k/uL APTT 21.6 L (22.0-30.0) sec Sodium 134 L (137-145) mmol/L Potassium (3.5-5.1) mmol/L Chloride 96 L (98-107) mmol/L BUN 42 H (9-20) mg/dL Creatinine 1.32 H (0.66-1.25) mg/dL Glucose 105 H (74-99) mg/dL Total Creatine Kinase (55-170) U/L CK-MB (CK-2) (0.0-2.4) ng/mL Assessment and Plan Plan: Assessment: #1. Acute on chronic hypoxic respiratory failure secondary to acute exacerbation of chronic obstructive pulmonary disease #2. Acute dyspnea, secondary to the above #3. Mild leukocytosis #4. Mild hyponatremia, possibly related to dehydration #5. Acute kidney injury, possibly related to ATN #6. Hyperkalemia #7. Coronary artery disease, with prior stenting #8. Chronic congestive heart failure with systolic dysfunction, with an EF of 30-35% and secondary pulmonary hypertension #9. Hypertension, hyperlipidemia #10. Cachexia Plan: Continue current medical treatment, continue IV steroids, nebulized bronchodilators, we'll repeat blood work in the morning, patient is on BiPAP support, breathing has improved, not producing any sputum, no cough, no fever or chills, no leukocytosis. Continue to follow. I performed a history & physical examination of the patient and discussed their management with my nurse practitioner, Roberta Fischer. I reviewed the nurse practitioner's note and agree with the documented findings and plan of care. Lung sounds are diminished. The findings and the impression was discussed with the patient. I attest to the documentation by the nurse practitioner. Time with Patient: Less than 30
[2018-06-29 12:36] LABS: Basophils % (A) 0 %; Eosinophils % (A) 0 %; HCT 33.7 % (39.0-53.0); HGB 10.9 gm/dL (13.0-17.5); Lymphocytes # (A) 0.3 k/uL (1.0-4.8); Lymphocytes % (A) 3 %; MCH 31.8 pg (25.0-35.0); MCHC 32.3 g/dL (31.0-37.0); MCV 98.4 fL (80.0-100.0); Mean Platelet Volume 7.6; Monocytes # (A) 0.4 k/uL (0-1.0); Monocytes % (A) 4 %; Neutrophils # (A) 8.6 k/uL (1.3-7.7); Neutrophils % (A) 92 %; Platelet Count 308 k/uL (150-450); RBC 3.43 m/uL (4.30-5.90); WBC 9.4 k/uL (3.8-10.6)
[2018-06-29 12:42] LABS: Calcium 9.1 mg/dL (8.4-10.2); Potassium 4.4 mmol/L (3.5-5.1)
--- NOTE | 2018-06-29 17:50 | US ---
EXAMINATION TYPE: US kidneys/renal and bladder DATE OF EXAM: 06/29/2018 COMPARISON: CT dated 03/18/2011 CLINICAL HISTORY: acute vs CKD. EXAM MEASUREMENTS: Right Kidney: 8.3 x 4.0 x 4.3 cm Left Kidney: 9.4 x 4.9 x 4.3 cm Right Kidney: moderate to severe hydro, cyst lower pole measures 3.1 x 2.6 x 2.9 cm. Left Kidney: moderate to severe hydro Bladder: overly distended at 1129 ml, stone noted measures 2.4 x 2.3 cm. Bilateral Jets seen: No IMPRESSION: There is moderate bilateral hydronephrosis. Bladder calculus. Large urinary bladder. There is no evidence of any significant renal atrophy however.
--- NOTE | 2018-06-29 18:02 | PN ---
PROGRESS NOTE DATE OF SERVICE: 06/29/2018 PRESENTING COMPLAINT: Short of breath. INTERVAL HISTORY: This is a patient with multiple medical problems, presented with acute shortness of breath felt to be COPD exacerbation. The patient was on BiPAP yesterday, onto nasal cannula today. Did tolerate a little bit of Ensure. Looks a bit more perky, sitting up on bed. REVIEW OF SYSTEMS: Done for constitutional, cardiovascular, GI, pulmonary; relevant findings as above. CURRENT MEDICATIONS: Reviewed that include: 1. DuoNeb. 2. IV Solu-Medrol. EXAMINATION: Temperature 96.9, pulse 69, respirations 20, blood pressure 120/58, pulse ox 99% on 3L. GENERAL APPEARANCE: Sitting up, tired-appearing. EYES: Pupils equal. Conjunctivae normal. HEENT: External nose and ears normal. Oral cavity normal. NECK: JVD not raised. Mass not palpable. RESPIRATORY: Effort increased. LUNGS: Decreased breath sounds. Prolonged expiration. Nasal cannula in place. PSYCHIATRY: Alert and oriented x3. Mood and affect is normal. INVESTIGATIONS: White count 9.4. Potassium 4.4, BUN 55, creatinine 1.59. ASSESSMENT: 1. Acute severe chronic obstructive pulmonary disease exacerbation an ex-smoker with some response. 2. Acute renal failure, cannot rule out a chronic component. Will need further workup. 3. Hyperkalemia due to renal failure, present on admission. 4. Severe protein-calorie malnutrition from poor oral intake. 5. Chronic congestive heart failure from systolic dysfunction, ejection fraction 35% from underlying coronary artery disease. 6. Coronary artery disease, prior history of stent. 7. Hypertension. 8. Hyperlipidemia. 9. Secondary pulmonary hypertension secondary to chronic obstructive pulmonary disease. 10.Chronic hypoxic respiratory failure on 2L oxygen at home. 11.Acute hypoxic respiratory failure from underlying chronic obstructive pulmonary disease. PLAN: Continue current medication and treatment plan. Will temporarily hold off patient's Zestril. Will very gently hydrate the patient to see if the acute renal function is any better. The patient's oral intake has been poor. Will also do a renal ultrasound. MMODL / IJN: [id number] /
[2018-06-29] MEDS: SODIUM CHLORIDE 0.9% 1,000 ML IV SCH (18:03)
[2018-06-29] MEDS: ATORVASTATIN 40 MG TAB PO SCH (20:28)
[2018-06-29 23:19] LABS: Glucose,Whole Blood 107 mg/dL (75-99)
[2018-06-30] MEDS: methylPREDNISolone SOD SUCCI 40 MG/ML 1 ML VIAL IV SCH ×2 (00:06→09:19)
[2018-06-30] MEDS: IPRATROPIUM-ALBUTEROL 3 ML NEB INHALATION SCH ×6 (00:15→19:27)
[2018-06-30 06:21] LABS: Glucose,Whole Blood 91 mg/dL (75-99)
[2018-06-30 06:42] LABS: Calcium 8.7 mg/dL (8.4-10.2); Potassium 4.5 mmol/L (3.5-5.1)
[2018-06-30] MEDS: FORMOTEROL FUMARATE 20 MCG/2 ML NEBU INHALATION SCH ×2 (08:39→19:27)
[2018-06-30] MEDS: BUDESONIDE 1 MG/2 ML NEBU INHALATION SCH ×2 (08:40→19:27)
[2018-06-30] MEDS ORDERED: ENOXAPARIN 30 MG/0.3 ML SYRINGE SQ SCH (09:00)
[2018-06-30] MEDS ORDERED: ASPIRIN 81 MG PO SCH (09:00)
[2018-06-30] MEDS: ATENOLOL 12.5 MG TAB PO SCH (09:20)
[2018-06-30 09:32] VITALS: TEMP 97
--- NOTE | 2018-06-30 10:38 | P.PN ---
Subjective Progress Note Date: 06/30/18 Principal diagnosis: Acute on chronic hypoxic respiratory failure secondary to an acute exacerbation of chronic obstructive pulmonary disease. Mr. Posada is a 82-year-old white male patient of Dr. Desai, presented to the emergency department on 06/28/2018 at 1209 for evaluation of progressive shortness of breath since yesterday. Patient was exposed to carpet dust when he was playing with his young nephew. He denied any worsening cough, denies any fever, chills or night sweats. Patient has history of advanced stage COPD with chronic hypoxemic respiratory failure on home oxygen, hypertension, coronary artery disease, previous history of myocardial infarction, impaired left ventricular systolic function with an EF between 30-35%, and secondary pulmonary hypertension with right ventricular systolic pressure of 56.6 mmHg. He has a history of nicotine dependence, currently in remission. Patient is on Incruz and Ventolin inhalers and he has nebulized Pulmicort, Perforomist at home. He wears 2 L of oxygen during the daytime as needed, and 3 L at bedtime. He has a baseline shortness of breath with activity. Chest x-ray was completed, and it showed no acute pulmonary process, COPD, and an interval development of 0.9 cm density in the right midlung, as read by the radiologist, patient had a recent CT of the chest showed moderate to severe centrilobular emphysematous changes without pulmonary mass or focal consolidation, and a possible tracheal polyp. On presentation patient was noted to have increased work of breathing, diminished lung sounds, and he was tachypneic. Patient was given nebulized breathing treatments, systemic corticosteroids, he was given empiric antibiotics in the form of azithromycin. He was placed on BiPAP support , with pressures of 12 and 6, and FiO2 of 50%, he was given 1 mg of IV Ativan. His lab work revealed WBC of 14.6, hemoglobin is 12.6, sodium is 134, potassium is 5.8, chloride is 93, BUN is 41, creatinine is 1.49, total CK was 569, CK-MB was 5.9, troponin was negative 1, proBNP was 3670. EKG was obtained, and showed sinus bradycardia, patient's borderline elevated potassium was treated with amp of calcium chloride, he was given 500 mL of 0.9 normal saline IV bolus , we've been consult in regards to acute exacerbation of chronic obstructive pulmonary disease. On 06/29/2018 patient seen in follow-up on selective care unit. He is off the BiPAP support, currently on 3 L per nasal cannula, and his pulse ox is 99%, breathing much easier, no acute distress, lung sounds are very diminished bilaterally, wheezing appreciated. He is awake and alert, and he states he is not sure what exactly precipitated his exacerbation of COPD, but he did not confirm it was carpet dust. Not coughing, no phlegm production, no fever, no chills, no peripheral edema. Vital signs are stable, he is afebrile. No new chest x-rays or lab work today, yesterday his BMP was repeated, and showed improvement of his serum potassium, down to 4.7, BUN was down to 42, creatinine 1.32. Continue current plan of treatment, systemic IV steroids, nebulized bronchodilators. patient is seen again today 06/30/2018 in follow-up on the selective care unit. He is currently awake and alert in no acute distress. He is breathing easier today as compared to yesterday.he is maintaining good O2 saturations in the mid 90s on 2 L/m per nasal cannula. He's been afebrile.bicarb 28. Creatinine 1.26.he is having issues with urinary retention requiring straight catheterizations and subsequent placement of indwelling Avila catheter. Objective - Vital Signs Vital signs: Vital Signs Temp 97 F L 06/30/18 08:00 Pulse 68 06/30/18 08:52 Resp 18 06/30/18 08:00 BP 95/77 06/30/18 08:00 Pulse Ox 95 06/30/18 08:00 Intake & Output 06/29/18 06/30/18 06/30/18 18:59 06:59 18:59 Intake Total 200 600 120 Output Total 150 5500 Balance 50 -4900 120 Weight 42.5 kg Intake: Intake, IV Titration 400 Amount Sodium Chloride 0.9% 1, 400 000 ml @ 50 mls/hr IV . Q20H SD Rx#:[id number] Oral 200 200 120 Output: Urine 150 5500 Straight 1500 Other: # Voids 2 - Exam GENERAL EXAM: Alert, pleasant, cachectic 82-year-old white male, awake and alert , responding appropriately, currently at 3 L per nasal cannula. HEAD: Normocephalic/atraumatic. EYES: Normal reaction of pupils, equal size. Conjunctiva pink, sclera white. NOSE: Clear with pink turbinates. THROAT: No erythema or exudates. NECK: No masses, no JVD, no thyroid enlargement, no adenopathy. CHEST: No chest wall deformity. Symmetrical expansion. LUNGS: Diminished breath sounds bilaterally, prolongation of the expiratory phase CVS: Regular rate and rhythm, normal S1 and S2, no gallops, no murmurs, no rubs ABDOMEN: Soft, nontender. No hepatosplenomegaly, normal bowel sounds, no guarding or rigidity. EXTREMITIES: No clubbing, no edema, no cyanosis, 2+ pulses and upper and lower extremities. MUSCULOSKELETAL: Muscle strength and tone normal. SPINE: No scoliosis or deformity SKIN: No rashes CENTRAL NERVOUS SYSTEM: No focal deficits, tone is normal in all 4 extremities. PSYCHIATRIC: Appropriate affect. Intact judgment and insight. - Labs CBC & Chem 7: 06/29/18 12:20 06/30/18 06:09 Labs: Abnormal Lab Results - Last 24 Hours (Table) 06/29/18 06/29/18 06/29/18 Range/Units 12:20 12:20 23:07 RBC 3.43 L (4.30-5.90) m/uL Hgb 10.9 L (13.0-17.5) gm/dL Hct 33.7 L (39.0-53.0) % Neutrophils # 8.6 H (1.3-7.7) k/uL Lymphocytes # 0.3 L (1.0-4.8) k/uL Sodium 134 L (137-145) mmol/L Chloride 96 L (98-107) mmol/L BUN 55 H (9-20) mg/dL Creatinine 1.59 H (0.66-1.25) mg/dL Glucose 141 H (74-99) mg/dL POC Glucose (mg/dL) 107 H (75-99) mg/dL 06/30/18 Range/Units 06:09 RBC (4.30-5.90) m/uL Hgb (13.0-17.5) gm/dL Hct (39.0-53.0) % Neutrophils # (1.3-7.7) k/uL Lymphocytes # (1.0-4.8) k/uL Sodium 136 L (137-145) mmol/L Chloride (98-107) mmol/L BUN 55 H (9-20) mg/dL Creatinine 1.26 H (0.66-1.25) mg/dL Glucose (74-99) mg/dL POC Glucose (mg/dL) (75-99) mg/dL Assessment and Plan Assessment: Assessment: #1. Acute on chronic hypoxic respiratory failure secondary to acute exacerbation of chronic obstructive pulmonary disease #2. Acute dyspnea, secondary to the above #3. Mild leukocytosis #4. Mild hyponatremia, possibly related to dehydration #5. Acute kidney injury, possibly related to ATN. The patient has having issues with urinary retention requiring placement of a Avila catheter. #6. Hyperkalemia #7. Coronary artery disease, with prior stenting #8. Chronic congestive heart failure with systolic dysfunction, with an EF of 30-35% and secondary pulmonary hypertension #9. Hypertension, hyperlipidemia #10. Cachexia Plan: The patient was seen and evaluated by Dr. Barr. He is improved from the pulmonary standpoint.continue with bronchodilators. Convert his IV Solu-Medrol to a prednisone burst and taper. Upon discharge he'll be home on Pulmicort and Perforomist inhalations twice a day along with Incruse and albuterol. He does have a nebulizer at home oxygen in place. If not home today we'll continue to follow. I, the cosigning physician, performed a history & physical examination of the patient. Lungs sounds with faint end expiratory wheeze, diminishedr. Maintaining good O2 saturations in the 90s on 2 L/m per nasal cannula. I discussed the assessment and plan of care with my nurse practitioner, Kenisha Banegas. I attest to the above note as dictated by her.
[2018-06-30 11:40] LABS: Glucose,Whole Blood 102 mg/dL (75-99)
[2018-06-30 15:38] VITALS: RESP 19
[2018-06-30 16:47] LABS: Glucose,Whole Blood 105 mg/dL (75-99)
[2018-06-30] MEDS: SODIUM CHLORIDE 0.9% 1,000 ML IV SCH (17:02)
[2018-06-30 17:06] VITALS: BP 115/58; PULSE 70
[2018-06-30] MEDS ORDERED: TAMSULOSIN 0.4 MG CAP.ER.24H PO SCH (21:00)
--- NOTE | 2018-06-30 22:12 | DS ---
DISCHARGE SUMMARY DATE OF ADMISSION: 06/28/2018. DATE OF DISCHARGE: 06/30/2018 FINAL DIAGNOSES: 1. Acute severe chronic obstructive pulmonary disease exacerbation in an ex-smoker. 2. Acute renal failure, probably prerenal. 3. Chronic kidney disease, stage 3, probably from nephrosclerosis. 4. Hyperkalemia due to renal failure, present on admission. 5. Severe protein-calorie malnutrition from poor oral intake. 6. Chronic congestive heart failure from systolic dysfunction, ejection fraction 35% from underlying coronary artery disease. 7. Coronary artery disease with prior history of stent. 8. Hypertension. 9. Hyperlipidemia. 10.Secondary pulmonary hypertension secondary to chronic obstructive pulmonary disease. 11.Chronic hypoxic respiratory failure on 2L oxygen at home. 12.Acute hypoxic respiratory failure from underlying chronic obstructive pulmonary disease, present on admission. HOSPITAL COURSE: This patient presented with acute severe chronic obstructive pulmonary disease exacerbation with an acute hypoxic respiratory failure. The patient's creatinine did go up to 1.56, did come down to 1.26. The patient therefore was felt to have a chronic component. The patient did have an ultrasound of the bladder that showed chronic changes. The patient had a Avila catheter placed and will follow up with Urology as an outpatient. Breathing was much better by the time of discharge. EXAMINATION: Blood pressure 105/58, afebrile. LUNGS: Decreased breath sounds. PSYCH: AO x3. The patient's BUN and creatinine at the time of discharge was 55 and 1.26. DISCHARGE MEDICATIONS: 1. Atenolol 12.5 p.o. daily. 2. Nitrostat 0.4 sublingual q.5 p.r.n. 3. Pulmicort 0.5 b.i.d. p.r.n. 4. Incruse Ellipta 1 puff q.48 hours. 5. Lipitor 40 mg q.h.s. 6. Tylenol 650 mg q.4 p.r.n. 7. Ventolin HFA 1 or 2 puffs every 6 hours p.r.n. 8. Perforomist 20 mcg b.i.d. 9. Aspirin 81 mg a day. 10.DuoNeb t.i.d. 11.Melatonin 3 mg q.h.s. p.r.n. 12.Flomax 0.4 mg p.o. q.h.s. 13.Prednisone taper. FOLLOWUP: With Dr. Johnson in 2 weeks, follow up with Dr. Shorty Desai in [place] on 07/11/2018. Follow up with Dr. Barr in 1 week. The patient instructed to keep the Avila catheter in. The patient to have a repeat BMP as an outpatient. DISCHARGE DISCUSSION AND PLANNING: More than 35 minutes. MMODL / IJN: [id number] /
[2018-07-01] MEDS ORDERED: IPRATROPIUM-ALBUTEROL 3 ML NEB INHALATION SCH (08:00)
[2018-07-01] MEDS ORDERED: predniSONE 20 MG TAB PO SCH (09:00)
== END 2018-06-30 21:12 | disposition home or self-care (01) | DRG 190 ==
LOC: EC 12:09 → 6SEL 14:07
PROVIDERS: ADMIT Hospitalist; ATTEND Hospitalist
DX: J44.1 Chronic obstructive pulmonary disease with (acute) exacerbation (principal); J96.21 Acute and chronic respiratory failure with hypoxia; E43 Unspecified severe protein-calorie malnutrition; Z68.1 Body mass index [BMI] 19.9 or less, adult; E87.1 Hypo-osmolality and hyponatremia; I13.0 Hypertensive heart and chronic kidney disease with heart failure and stage 1 through stage 4 chronic kidney disease, or unspecified chronic kidney disease; I50.22 Chronic systolic (congestive) heart failure; N17.9 Acute kidney failure, unspecified; R64 Cachexia; D72.829 Elevated white blood cell count, unspecified; E78.5 Hyperlipidemia, unspecified; E86.0 Dehydration; E87.5 Hyperkalemia; I25.10 Atherosclerotic heart disease of native coronary artery without angina pectoris; I25.2 Old myocardial infarction; I27.29 Other secondary pulmonary hypertension; N18.3 Chronic kidney disease, stage 3 (moderate); Z79.82 Long term (current) use of aspirin; Z79.899 Other long term (current) drug therapy; Z99.81 Dependence on supplemental oxygen; Z87.891 Personal history of nicotine dependence; Z80.1 Family history of malignant neoplasm of trachea, bronchus and lung; T75.89XA Other specified effects of external causes, initial encounter; Y92.009 Unspecified place in unspecified non-institutional (private) residence as the place of occurrence of the external cause
CPT/HCPCS: 36415; 71045; 73501; 76770; 80048; 80053; 82550; 82553; 83735; 83880; 84484; 85025; 85610; 85730; 93005; 94640; 94644; 94660; 96374; 99285

== ENCOUNTER 2018-07-21 16:05 | Emergency (ER) | payer MEDICARE, OTHER ==
[2018-07-21] MEDS ORDERED: IPRATROPIUM-ALBUTEROL 3 ML NEB INHALATION STA (16:12)
[2018-07-21] MEDS ORDERED: methylPREDNISolone SOD SUCCI 125 MG/2 ML VIAL IV STA (16:12)
[2018-07-21] MEDS ORDERED: SODIUM CHLORIDE 0.9% 1,000 ML IV STA (16:12)
[2018-07-21] MEDS ORDERED: LIDOCAINE URO-JET JELLY 2% 5 ML KIT URETHRAL ONE (16:22)
--- NOTE | 2018-07-21 16:22 | ED ---
General Adult HPI - General Chief complaint: Urogenital Stated complaint: diff breathing Time Seen by Provider: 07/21/18 16:08 Source: patient, RN notes reviewed Mode of arrival: ambulatory Limitations: no limitations - History of Present Illness Initial comments: This 82-year-old male history of COPD and recent Avila catheter removal who is back today with complaints of inability to urinate for the past day also is very short of breath no chest pain no fevers chills nausea vomiting sweats or other symptoms. - Related Data Home Medications Medication Instructions Recorded Confirmed Atenolol 12.5 mg PO QAM 01/30/17 07/21/18 Nitroglycerin Sl Tabs [Nitrostat] 0.4 mg SUBLINGUAL Q5M PRN 01/30/17 07/21/18 Budesonide [Pulmicort] 0.5 mg INHALATION RT-BID PRN 05/24/17 07/21/18 Umeclidinium [place] [Incruse 1 puff INHALATION RT-DAILY PRN 05/24/17 07/21/18 Ellipta] Atorvastatin [Lipitor] 40 mg PO HS 11/21/17 07/21/18 Albuterol Inhaler [Ventolin Hfa 1 - 2 puff INHALATION RT-Q6H PRN 06/28/18 Inhaler] Formoterol Fumarate [Perforomist] 20 mcg INHALATION RT-BID 06/28/18 07/21/18 Aspirin EC [Ecotrin] 325 mg PO DAILY 07/21/18 07/21/18 Calcium Carbonate [Calcium] 600 mg PO DAILY 07/21/18 07/21/18 Cholecalciferol (Vitamin D3) 2,000 unit PO DAILY 07/21/18 07/21/18 [Vitamin D3] Lisinopril [Zestril] 5 mg PO DAILY 07/21/18 07/21/18 Previous Rx's Medication Instructions Recorded Cephalexin [Keflex] 500 mg PO Q6HR #40 cap 07/21/18 predniSONE 20 mg PO BID #10 tab 07/21/18 Allergies Allergy/AdvReac Type Severity Reaction Status Date / Time No Known Allergies Allergy Verified 07/21/18 16:28 Review of Systems ROS Statement: Those systems with pertinent positive or pertinent negative responses have been documented in the HPI. ROS Other: All systems not noted in ROS Statement are negative. 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 OF THIS ADMIT Last Myocardial Infarction Date:: 2016 History of Any Multi-Drug Resistant Organisms: None Reported Past Surgical History: Heart Catheterization, Heart Catheterization With Stent Additional Past Surgical History / Comment(s): stent RCA, CATARACTS SENAIT EYES Past Anesthesia/Blood Transfusion Reactions: No Reported Reaction Date of Last Stent Placement:: 2009 Past Psychological History: No Psychological Hx Reported Smoking Status: Former smoker - Past Family History Brother(s) Family Medical History: Cancer Additional Family Medical History / Comment(s): lung CA Father Family Medical History: Myocardial Infarction ([place]) Mother Additional Family Medical History / Comment(s): CEREBRAL HEMORRAGE General Exam - General Exam Comments Initial Comments: This is a well-developed asthenic appearing male who is in obvious respiratory distress Limitations: no limitations General appearance: alert, anxious, in distress ENT exam: Present: mucous membranes dry Neck exam: Present: normal inspection. Absent: tenderness, meningismus, lymphadenopathy Respiratory exam: Present: respiratory distress, wheezes, decreased breath sounds Cardiovascular Exam: Present: regular rate, normal rhythm, normal heart sounds. Absent: systolic murmur, diastolic murmur, rubs, gallop, clicks GI/Abdominal exam: Present: soft, other (Distended bladder) exam: Present: normal inspection Extremities exam: Present: normal inspection, full ROM, normal capillary refill. Absent: tenderness, pedal edema, joint swelling, calf tenderness Back exam: Present: normal inspection Neurological exam: Present: alert, oriented X3, CN II-XII intact Psychiatric exam: Present: normal affect, anxious Skin exam: Present: warm, dry, intact, normal color. Absent: rash Course Vital Signs 07/21/18 07/21/18 07/21/18 16:13 16:38 16:45 Temperature 97.2 F L Pulse Rate 64 73 57 L Respiratory 28 H Rate Blood Pressure 140/60 O2 Sat by Pulse 83 L Oximetry EKG Findings - EKG Results: EKG: interpreted by BRI, sinus rhythm (Sinus rhythm of 83 AL interval 178 QRS duration 72 QT since QTC 340/404 artifact is present) Medical Decision Making - Medical Decision Making Patient showing 100% better he states. He did get over 60 mL urine out. There was some blood and white cells no nitrites. A urine culture is pending. Patient's lungs are clear his pulse ox is 98%. He does desire to go home he'll be discharged he does have follow-up with urology. I did write for an antibiotic should the patient started developing any fevers chills sweats or discolored urine. The patient does demonstrate evidence of reactive leukocytosis and some prerenal azotemia he was advised to increase his oral fluid consumption. - Lab Data Result diagrams: 07/21/18 16:56 07/21/18 16:56 Lab Results 07/21/18 07/21/18 07/21/18 Range/Units 16:23 16:56 16:56 WBC 13.8 H (3.8-10.6) k/uL RBC 3.45 L (4.30-5.90) m/uL Hgb 11.3 L (13.0-17.5) gm/dL Hct 34.5 L (39.0-53.0) % MCV 100.1 H (80.0-100.0) fL MCH 32.7 (25.0-35.0) pg MCHC 32.7 (31.0-37.0) g/dL RDW 12.8 (11.5-15.5) % Plt Count 278 (150-450) k/uL Neutrophils % 88 % Lymphocytes % 5 % Monocytes % 6 % Eosinophils % 1 % Basophils % 0 % Neutrophils # 12.1 H (1.3-7.7) k/uL Lymphocytes # 0.7 L (1.0-4.8) k/uL Monocytes # 0.8 (0-1.0) k/uL Eosinophils # 0.1 (0-0.7) k/uL Basophils # 0.0 (0-0.2) k/uL PT (9.0-12.0) sec INR (<1.2) APTT (22.0-30.0) sec Sodium (137-145) mmol/L Potassium (3.5-5.1) mmol/L Chloride (98-107) mmol/L Carbon Dioxide (22-30) mmol/L Anion Gap mmol/L BUN (9-20) mg/dL Creatinine (0.66-1.25) mg/dL Est GFR (CKD-EPI)AfAm (>60 ml/min/1.73 sqM) Est GFR (CKD-EPI)NonAf (>60 ml/min/1.73 sqM) Glucose (74-99) mg/dL Calcium (8.4-10.2) mg/dL Magnesium (1.6-2.3) mg/dL Total Bilirubin (0.2-1.3) mg/dL AST (17-59) U/L ALT (21-72) U/L Alkaline Phosphatase (38-126) U/L Total Creatine Kinase 67 (55-170) U/L CK-MB (CK-2) 2.6 H* (0.0-2.4) ng/mL CK-MB (CK-2) Rel Index 3.9 Troponin I <0.012 (0.000-0.034) ng/mL NT-Pro-B Natriuret Pep pg/mL Total Protein (6.3-8.2) g/dL Albumin (3.5-5.0) g/dL Urine Color Yellow Urine Appearance Cloudy (Clear) Urine pH 6.0 (5.0-8.0) Ur Specific [place] 1.009 (1.001-1.035) Urine Protein Trace H (Negative) Urine Glucose (UA) Negative (Negative) Urine Ketones Negative (Negative) Urine Blood Large H (Negative) Urine Nitrite Negative (Negative) Urine Bilirubin Negative (Negative) Urine Urobilinogen <2.0 (<2.0) mg/dL Ur Leukocyte Esterase Large H (Negative) Urine RBC 179 H (0-5) /hpf Urine WBC 146 H (0-5) /hpf Urine WBC Clumps Moderate H (None) /hpf Urine Bacteria Occasional H (None) /hpf Urine Mucus Rare H (None) /hpf 07/21/18 07/21/18 07/21/18 Range/Units 16:56 16:56 16:56 WBC (3.8-10.6) k/uL RBC (4.30-5.90) m/uL Hgb (13.0-17.5) gm/dL Hct (39.0-53.0) % MCV (80.0-100.0) fL MCH (25.0-35.0) pg MCHC (31.0-37.0) g/dL RDW (11.5-15.5) % Plt Count (150-450) k/uL Neutrophils % % Lymphocytes % % Monocytes % % Eosinophils % % Basophils % % Neutrophils # (1.3-7.7) k/uL Lymphocytes # (1.0-4.8) k/uL Monocytes # (0-1.0) k/uL Eosinophils # (0-0.7) k/uL Basophils # (0-0.2) k/uL PT 9.5 (9.0-12.0) sec INR 1.0 (<1.2) APTT 22.9 (22.0-30.0) sec Sodium 137 (137-145) mmol/L Potassium 5.0 (3.5-5.1) mmol/L Chloride 98 (98-107) mmol/L Carbon Dioxide 30 (22-30) mmol/L Anion Gap 9 mmol/L BUN 41 H (9-20) mg/dL Creatinine 0.90 (0.66-1.25) mg/dL Est GFR (CKD-EPI)AfAm >90 (>60 ml/min/1.73 sqM) Est GFR (CKD-EPI)NonAf 79 (>60 ml/min/1.73 sqM) Glucose 91 (74-99) mg/dL Calcium 8.9 (8.4-10.2) mg/dL Magnesium 2.1 (1.6-2.3) mg/dL Total Bilirubin 0.4 (0.2-1.3) mg/dL AST 32 (17-59) U/L ALT 39 (21-72) U/L Alkaline Phosphatase 47 (38-126) U/L Total Creatine Kinase (55-170) U/L CK-MB (CK-2) (0.0-2.4) ng/mL CK-MB (CK-2) Rel Index Troponin I (0.000-0.034) ng/mL NT-Pro-B Natriuret Pep 317 pg/mL Total Protein 6.3 (6.3-8.2) g/dL Albumin 3.9 (3.5-5.0) g/dL Urine Color Urine Appearance (Clear) Urine pH (5.0-8.0) Ur Specific [place] (1.001-1.035) Urine Protein (Negative) Urine Glucose (UA) (Negative) Urine Ketones (Negative) Urine Blood (Negative) Urine Nitrite (Negative) Urine Bilirubin (Negative) Urine Urobilinogen (<2.0) mg/dL Ur Leukocyte Esterase (Negative) Urine RBC (0-5) /hpf Urine WBC (0-5) /hpf Urine WBC Clumps (None) /hpf Urine Bacteria (None) /hpf Urine Mucus (None) /hpf - Radiology Data Radiology results: report reviewed (I did review the imaging and report no acute findings.), image reviewed Disposition Clinical Impression: COPD exacerbation, Acute urinary retention, Dehydration Disposition: HOME SELF-CARE Condition: Good Instructions: Urinary Retention in Men (ED), COPD (Chronic Obstructive Pulmonary Disease) (ED), Dehydration (ED) Additional Instructions: Continue with the Avila catheter, keep follow-up appointment with urology as planned. Take antibiotics if necessary, if fevers chills sweats or cloudy urine Prescriptions: Cephalexin [Keflex] 500 mg PO Q6HR #40 cap predniSONE 20 mg PO BID #10 tab Is patient prescribed a controlled substance at d/c from ED?: No Referrals: Shorty Desai MD [Primary Care Provider] - 1-2 days
[2018-07-21 16:50] LABS: Appearance,Urine Cloudy (Clear); Bacteria,Urine Occasional /hpf; Bilirubin,Urine Negative (Negative); Blood,Urine Large (Negative); Color,Urine Yellow; Glucose,Urine (UA) Negative (Negative); Ketones,Urine Negative (Negative); Leukocyte Esterase,Urine Large (Negative); Mucus,Urine Rare /hpf; Nitrite,Urine Negative (Negative); Protein,Urine Trace (Negative); RBC,Urine 179 /hpf (0-5); Specific Gravity,Urine 1.009 (1.001-1.035); Urobilinogen,Urine <2.0 mg/dL (<2.0); WBC,Urine 146 /hpf (0-5)
[2018-07-21 17:04] LABS: Basophils % (A) 0 %; Eosinophils # (A) 0.1 k/uL (0-0.7); Eosinophils % (A) 1 %; HCT 34.5 % (39.0-53.0); HGB 11.3 gm/dL (13.0-17.5); Lymphocytes # (A) 0.7 k/uL (1.0-4.8); Lymphocytes % (A) 5 %; MCH 32.7 pg (25.0-35.0); MCHC 32.7 g/dL (31.0-37.0); MCV 100.1 fL (80.0-100.0); Mean Platelet Volume 7.7; Monocytes # (A) 0.8 k/uL (0-1.0); Monocytes % (A) 6 %; Neutrophils # (A) 12.1 k/uL (1.3-7.7); Neutrophils % (A) 88 %; Platelet Count 278 k/uL (150-450); RBC 3.45 m/uL (4.30-5.90); RDW 12.8 % (11.5-15.5); WBC 13.8 k/uL (3.8-10.6)
[2018-07-21 17:13] LABS: ALT 39 U/L (21-72); AST 32 U/L (17-59); Albumin 3.9 g/dL (3.5-5.0); Alkaline Phosphatase 47 U/L (38-126); Anion Gap 9 mmol/L; Blood Urea Nitrogen 41 mg/dL (9-20); Calcium 8.9 mg/dL (8.4-10.2); Carbon Dioxide 30 mmol/L (22-30); Chloride 98 mmol/L (98-107); Glucose 91 mg/dL (74-99); Magnesium 2.1 mg/dL (1.6-2.3); Sodium 137 mmol/L (137-145); Total Bilirubin 0.4 mg/dL (0.2-1.3); Total Protein 6.3 g/dL (6.3-8.2)
[2018-07-21 17:18] LABS: Partial Thromboplastin Time 22.9 sec (22.0-30.0); Prothrombin Time 9.5 sec (9.0-12.0)
[2018-07-21 17:21] LABS: Creatine Kinase 67 U/L (55-170)
[2018-07-21 17:51] LABS: Troponin I <0.012 ng/mL (0.000-0.034)
[2018-07-21 17:55] LABS: Creatine Kinase MB 2.6 ng/mL (0.0-2.4)
--- NOTE | 2018-07-21 17:55 | XR ---
EXAMINATION TYPE: XR chest 2V DATE OF EXAM: 07/21/2018 COMPARISON: Prior chest 06/28/[address] 02/26/2018 HISTORY: Difficulty breathing TECHNIQUE: Frontal and lateral views of the chest are obtained. FINDINGS: There is no focal air space opacity, pleural effusion, or pneumothorax seen. The cardiac silhouette size is stable. The osseous structures are intact, patient is rotated. Prominent pulmona ry artery could be indicative of pulmonary artery hypertension, there are prominent lung volumes, the re is increased retrosternal airspace and flattening the hemidiaphragms compatible with COPD IMPRESSION: No acute cardiopulmonary process.
[2018-07-21 18:27] VITALS: BP 125/60; PULSE 88; RESP 20; TEMP 98
== END 2018-07-21 18:27 | disposition home or self-care (01) ==
LOC: EC 16:05
DX: J44.1 Chronic obstructive pulmonary disease with (acute) exacerbation (principal); R33.9 Retention of urine, unspecified; E86.0 Dehydration; D72.829 Elevated white blood cell count, unspecified; R79.89 Other specified abnormal findings of blood chemistry; I25.10 Atherosclerotic heart disease of native coronary artery without angina pectoris; I11.0 Hypertensive heart disease with heart failure; I50.9 Heart failure, unspecified; I25.2 Old myocardial infarction; I27.20 Pulmonary hypertension, unspecified; Z95.5 Presence of coronary angioplasty implant and graft; Z95.818 Presence of other cardiac implants and grafts; Z87.891 Personal history of nicotine dependence; Z79.82 Long term (current) use of aspirin; Z79.899 Other long term (current) drug therapy
CPT/HCPCS: 36415; 94640; 83880; 80053; 82550; 82553; 83735; 84484; 85025; 85610; 85730; 81001; 87086; 71046; 99285; 51702; 96374; 96361; J2930; 87077; 87186

== ENCOUNTER 2018-09-05 08:06 | Emergency (ER) | payer MEDICARE, OTHER ==
[2018-09-05] MEDS ORDERED: ALBUTEROL NEBULIZED 2.5 MG/3 ML INHALATION STA (08:13)
[2018-09-05] MEDS ORDERED: methylPREDNISolone SOD SUCCI 125 MG/2 ML VIAL IV STA (08:13)
[2018-09-05] MEDS ORDERED: LIDOCAINE URO-JET JELLY 2% 5 ML KIT URETHRAL ONE (08:28)
--- NOTE | 2018-09-05 08:40 | ED ---
General Adult HPI - General Stated complaint: Sob Time Seen by Provider: 09/05/18 08:08 Source: patient, family, RN notes reviewed, old records reviewed Mode of arrival: wheelchair Limitations: no limitations - History of Present Illness Initial comments: 82-year-old male history of end-stage COPD on home oxygen presents with 2 complaints, first complaint is moderate worsening dyspnea over the past 24 hours. Patient denies chest pain. Denies worsening cough. He has been using his normal rate of supplemental oxygen. Denies lower extremity swelling or edema. Second complaint is of urinary retention. Patient has known bladder stone with indwelling Avila catheter. He has not urinated since yesterday evening greater than 12 hours prior to arrival. He is complaining of some lower abdominal pain and fullness. Denies fever or chills. Denies hematuria currently however he has had episodes of hematuria in the past. No upper abdominal pain. No vomiting. - Related Data Home Medications Medication Instructions Recorded Confirmed Atenolol 12.5 mg PO QAM 01/30/17 09/05/18 Nitroglycerin Sl Tabs [Nitrostat] 0.4 mg SUBLINGUAL Q5M PRN 01/30/17 09/05/18 Budesonide [Pulmicort] 0.5 mg INHALATION RT-BID PRN 05/24/17 09/05/18 Umeclidinium [place] [Incruse 1 puff INHALATION RT-DAILY PRN 05/24/17 09/05/18 Ellipta] Atorvastatin [Lipitor] 40 mg PO HS 11/21/17 09/05/18 Albuterol Inhaler [Ventolin Hfa 1 - 2 puff INHALATION RT-Q6H PRN 06/28/18 Inhaler] Formoterol Fumarate [Perforomist] 20 mcg INHALATION RT-BID 06/28/18 09/05/18 Calcium Carbonate [Calcium] 600 mg PO DAILY 07/21/18 09/05/18 Cholecalciferol (Vitamin D3) 2,000 unit PO DAILY 07/21/18 09/05/18 [Vitamin D3] Lisinopril [Zestril] 5 mg PO DAILY 07/21/18 09/05/18 Acetaminophen Tab [Tylenol Tab] 650 mg PO Q4H 09/05/18 09/05/18 Aspirin 81 mg PO DAILY 09/05/18 09/05/18 Ipratropium-Albuterol Nebulize 3 ml INHALATION BID 09/05/18 09/05/18 [Duoneb 0.5 mg-3 mg/3 ml Soln] Previous Rx's Medication Instructions Recorded Levofloxacin [Levaquin] 500 mg PO DAILY 3 Days #7 tab 09/05/18 Allergies Allergy/AdvReac Type Severity Reaction Status Date / Time No Known Allergies Allergy Verified 09/05/18 09:11 Review of Systems ROS Statement: Those systems with pertinent positive or pertinent negative responses have been documented in the HPI. ROS Other: All systems not noted in ROS Statement are negative. 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 Last Myocardial Infarction Date:: 2016 History of Any Multi-Drug Resistant Organisms: None Reported Past Surgical History: Heart Catheterization, Heart Catheterization With Stent Additional Past Surgical History / Comment(s): stent RCA, CATARACTS SENAIT EYES, bladder scope Past Anesthesia/Blood Transfusion Reactions: No Reported Reaction Date of Last Stent Placement:: 2009 Past Psychological History: No Psychological Hx Reported Smoking Status: Former smoker Past Alcohol Use History: None Reported Past Drug Use History: None Reported - Past Family History Brother(s) Family Medical History: Cancer Additional Family Medical History / Comment(s): lung CA Father Family Medical History: Myocardial Infarction ([place]) Mother Additional Family Medical History / Comment(s): CEREBRAL HEMORRAGE General Exam Limitations: no limitations General appearance: alert, in no apparent distress, cachectic Head exam: Present: atraumatic, normocephalic Eye exam: Present: normal appearance, PERRL ENT exam: Present: normal exam Neck exam: Present: normal inspection. Absent: tenderness, meningismus Respiratory exam: Present: decreased breath sounds, prolonged expiratory, other (Tachypneic). Absent: respiratory distress Cardiovascular Exam: Present: regular rate, normal rhythm GI/Abdominal exam: Present: soft, distended (Suprapubic distention and tenderness), tenderness Extremities exam: Present: normal inspection, normal capillary refill. Absent: pedal edema, calf tenderness Neurological exam: Present: alert, oriented X3, CN II-XII intact. Absent: motor sensory deficit Skin exam: Present: warm, dry, intact. Absent: cyanosis, diaphoretic Course Vital Signs 09/05/18 09/05/18 09/05/18 08:17 08:49 09:11 Temperature 97.3 F L Pulse Rate 83 100 76 Pulse Rate [ Grave Digger ] Respiratory 28 H Rate Blood Pressure 143/70 O2 Sat by Pulse 95 Oximetry 09/05/18 09/05/18 09:15 10:16 Temperature 97.6 F Pulse Rate 88 Pulse Rate [ 80 Grave Digger ] Respiratory 24 Rate Blood Pressure 128/60 O2 Sat by Pulse 96 Oximetry EKG Findings - EKG Comments: EKG Findings:: EKG: Normal sinus rhythm, low voltage, rate of 80, [place] interval 138, QRS duration 68, QTC [address] segment elevation or depression. Medical Decision Making - Medical Decision Making 82-year-old male presenting with chief complaint of urinary retention. Patient' s Avila catheter is occluded, this is replaced in the emergency department. Patient has signs of urinary tract infection. Previous culture results did reveal Enterobacter which was susceptible to Levaquin. Patient will be started on Levaquin empirically awaiting repeat culture results. Patient did have some dyspnea, he has history of COPD on home oxygen. Chest x-ray obtained, negative for focal pneumonia or acute findings. Patient has stable hemoglobin, normal white blood cell count, normal electrolytes, nonischemic EKG and a negative troponin. He is eager for discharge. Prescribed Levaquin for urinary tract infection. Return with worsening or changing symptoms. - Lab Data Result diagrams: 09/05/18 08:23 09/05/18 08:20 Lab Results 09/05/18 09/05/18 09/05/18 Range/Units 08:20 08:20 08:23 WBC 11.6 H (3.8-10.6) k/uL RBC 3.58 L (4.30-5.90) m/uL Hgb 11.6 L (13.0-17.5) gm/dL Hct 35.5 L (39.0-53.0) % MCV 99.3 (80.0-100.0) fL MCH 32.3 (25.0-35.0) pg MCHC 32.5 (31.0-37.0) g/dL RDW 13.0 (11.5-15.5) % Plt Count 402 (150-450) k/uL Neutrophils % 82 % Lymphocytes % 7 % Monocytes % 8 % Eosinophils % 1 % Basophils % 0 % Neutrophils # 9.5 H (1.3-7.7) k/uL Lymphocytes # 0.8 L (1.0-4.8) k/uL Monocytes # 0.9 (0-1.0) k/uL Eosinophils # 0.2 (0-0.7) k/uL Basophils # 0.0 (0-0.2) k/uL Hypochromasia Slight PT (9.0-12.0) sec INR (<1.2) APTT (22.0-30.0) sec Sodium 139 (137-145) mmol/L Potassium 4.5 (3.5-5.1) mmol/L Chloride 98 (98-107) mmol/L Carbon Dioxide 29 (22-30) mmol/L Anion Gap 12 mmol/L BUN 25 H (9-20) mg/dL Creatinine 0.80 (0.66-1.25) mg/dL Est GFR (CKD-EPI)AfAm >90 (>60 ml/min/1.73 sqM) Est GFR (CKD-EPI)NonAf 83 (>60 ml/min/1.73 sqM) Glucose 94 (74-99) mg/dL Calcium 9.0 (8.4-10.2) mg/dL Total Bilirubin 0.7 (0.2-1.3) mg/dL AST 51 (17-59) U/L ALT 55 (21-72) U/L Alkaline Phosphatase 68 (38-126) U/L Total Creatine Kinase 97 (55-170) U/L CK-MB (CK-2) 3.3 H (0.0-2.4) ng/mL CK-MB (CK-2) Rel Index 3.4 Troponin I <0.012 (0.000-0.034) ng/mL Total Protein 6.8 (6.3-8.2) g/dL Albumin 4.0 (3.5-5.0) g/dL Urine Color Urine Appearance (Clear) Urine pH (5.0-8.0) Ur Specific [place] (1.001-1.035) Urine Protein (Negative) Urine Glucose (UA) (Negative) Urine Ketones (Negative) Urine Blood (Negative) Urine Nitrite (Negative) Urine Bilirubin (Negative) Urine Urobilinogen (<2.0) mg/dL Ur Leukocyte Esterase (Negative) Urine RBC (0-5) /hpf Urine WBC (0-5) /hpf Urine WBC Clumps (None) /hpf Urine Bacteria (None) /hpf 09/05/18 09/05/18 Range/Units 08:23 10:13 WBC (3.8-10.6) k/uL RBC (4.30-5.90) m/uL Hgb (13.0-17.5) gm/dL Hct (39.0-53.0) % MCV (80.0-100.0) fL MCH (25.0-35.0) pg MCHC (31.0-37.0) g/dL RDW (11.5-15.5) % Plt Count (150-450) k/uL Neutrophils % % Lymphocytes % % Monocytes % % Eosinophils % % Basophils % % Neutrophils # (1.3-7.7) k/uL Lymphocytes # (1.0-4.8) k/uL Monocytes # (0-1.0) k/uL Eosinophils # (0-0.7) k/uL Basophils # (0-0.2) k/uL Hypochromasia PT 10.0 (9.0-12.0) sec INR 1.0 (<1.2) APTT 24.4 (22.0-30.0) sec Sodium (137-145) mmol/L Potassium (3.5-5.1) mmol/L Chloride (98-107) mmol/L Carbon Dioxide (22-30) mmol/L Anion Gap mmol/L BUN (9-20) mg/dL Creatinine (0.66-1.25) mg/dL Est GFR (CKD-EPI)AfAm (>60 ml/min/1.73 sqM) Est GFR (CKD-EPI)NonAf (>60 ml/min/1.73 sqM) Glucose (74-99) mg/dL Calcium (8.4-10.2) mg/dL Total Bilirubin (0.2-1.3) mg/dL AST (17-59) U/L ALT (21-72) U/L Alkaline Phosphatase (38-126) U/L Total Creatine Kinase (55-170) U/L CK-MB (CK-2) (0.0-2.4) ng/mL CK-MB (CK-2) Rel Index Troponin I (0.000-0.034) ng/mL Total Protein (6.3-8.2) g/dL Albumin (3.5-5.0) g/dL Urine Color Light Yellow Urine Appearance Turbid (Clear) Urine pH 6.5 (5.0-8.0) Ur Specific [place] 1.010 (1.001-1.035) Urine Protein 1+ H (Negative) Urine Glucose (UA) Negative (Negative) Urine Ketones Negative (Negative) Urine Blood Moderate H (Negative) Urine Nitrite Negative (Negative) Urine Bilirubin Negative (Negative) Urine Urobilinogen <2.0 (<2.0) mg/dL Ur Leukocyte Esterase Large H (Negative) Urine RBC 30 H (0-5) /hpf Urine WBC >182 H (0-5) /hpf Urine WBC Clumps Many H (None) /hpf Urine Bacteria Occasional H (None) /hpf Disposition Clinical Impression: COPD (chronic obstructive pulmonary disease), UTI (urinary tract infection) Disposition: HOME SELF-CARE Condition: Fair Instructions: Avila Catheter Placement and Care (ED), Urinary Tract Infection in Men (ED) Prescriptions: Levofloxacin [Levaquin] 500 mg PO DAILY 3 Days #7 tab Is patient prescribed a controlled substance at d/c from ED?: No Referrals: Shorty Desai MD [Primary Care Provider] - 1-2 days Time of Disposition: 11:05
[2018-09-05 08:53] LABS: Basophils % (A) 0 %; Eosinophils # (A) 0.2 k/uL (0-0.7); Eosinophils % (A) 1 %; HCT 35.5 % (39.0-53.0); HGB 11.6 gm/dL (13.0-17.5); Hypochromasia Slight; Lymphocytes # (A) 0.8 k/uL (1.0-4.8); Lymphocytes % (A) 7 %; MCH 32.3 pg (25.0-35.0); MCHC 32.5 g/dL (31.0-37.0); MCV 99.3 fL (80.0-100.0); Mean Platelet Volume 7.6; Monocytes # (A) 0.9 k/uL (0-1.0); Monocytes % (A) 8 %; Neutrophils # (A) 9.5 k/uL (1.3-7.7); Neutrophils % (A) 82 %; Platelet Count 402 k/uL (150-450); RBC 3.58 m/uL (4.30-5.90); WBC 11.6 k/uL (3.8-10.6)
[2018-09-05 09:02] LABS: ALT 55 U/L (21-72); AST 51 U/L (17-59); Alkaline Phosphatase 68 U/L (38-126); Anion Gap 12 mmol/L; Blood Urea Nitrogen 25 mg/dL (9-20); Carbon Dioxide 29 mmol/L (22-30); Chloride 98 mmol/L (98-107); Glucose 94 mg/dL (74-99); Potassium 4.5 mmol/L (3.5-5.1); Sodium 139 mmol/L (137-145); Total Bilirubin 0.7 mg/dL (0.2-1.3); Total Protein 6.8 g/dL (6.3-8.2)
[2018-09-05 09:03] LABS: Partial Thromboplastin Time 24.4 sec (22.0-30.0)
[2018-09-05 09:18] LABS: Creatine Kinase 97 U/L (55-170)
[2018-09-05 09:31] LABS: Creatine Kinase MB 3.3 ng/mL (0.0-2.4); Troponin I <0.012 ng/mL (0.000-0.034)
--- NOTE | 2018-09-05 09:34 | XR ---
EXAMINATION TYPE: XR chest 2V DATE OF EXAM: 09/05/2018 COMPARISON: 07/21/2018 HISTORY: Shortness of breath and COPD. TECHNIQUE: Frontal and lateral views of the chest are obtained. FINDINGS: There is no focal air space opacity, pleural effusion, or pneumothorax seen. Pulmonary hyp erinflation, flattening of the diaphragms and increased anterior posterior diameter of the chest with tapering of the pulmonary vasculature relate to underlying COPD. The cardiac silhouette size is with in normal limits. Old healed left posterior mid rib fracture is seen. Enlargement of the main pulmona ry artery suggests pulmonary arterial hypertension as seen on the prior. Mild multilevel degenerative changes of the thoracic spine are noted. IMPRESSION: No acute cardiopulmonary process. Radiographic sequela of COPD and findings suggesting u nderlying pulmonary arterial hypertension.
[2018-09-05 10:17] VITALS: PULSE 88
[2018-09-05 10:51] LABS: Appearance,Urine Turbid (Clear); Bacteria,Urine Occasional /hpf; Bilirubin,Urine Negative (Negative); Blood,Urine Moderate (Negative); Color,Urine Light Yellow; Glucose,Urine (UA) Negative (Negative); Ketones,Urine Negative (Negative); Leukocyte Esterase,Urine Large (Negative); Nitrite,Urine Negative (Negative); PH, Urine 6.5 (5.0-8.0); Protein,Urine 1+ (Negative); RBC,Urine 30 /hpf (0-5); Urobilinogen,Urine <2.0 mg/dL (<2.0); WBC,Urine >182 /hpf (0-5)
[2018-09-05 11:38] VITALS: BP 163/65; RESP 22; TEMP 98
== END 2018-09-05 11:20 | disposition home or self-care (01) ==
LOC: EC 08:06
DX: J44.9 Chronic obstructive pulmonary disease, unspecified (principal); N39.0 Urinary tract infection, site not specified; T83.098A Other mechanical complication of other urinary catheter, initial encounter; R14.0 Abdominal distension (gaseous); I11.0 Hypertensive heart disease with heart failure; I50.9 Heart failure, unspecified; I25.10 Atherosclerotic heart disease of native coronary artery without angina pectoris; I25.2 Old myocardial infarction; Z87.891 Personal history of nicotine dependence; Z79.51 Long term (current) use of inhaled steroids; Z79.82 Long term (current) use of aspirin; Z79.891 Long term (current) use of opiate analgesic; Z79.899 Other long term (current) drug therapy; Z95.5 Presence of coronary angioplasty implant and graft; Z99.81 Dependence on supplemental oxygen; Z80.1 Family history of malignant neoplasm of trachea, bronchus and lung
CPT/HCPCS: 36415; 94640; 93005; 80053; 82550; 82553; 84484; 85025; 85610; 85730; 81001; 87086; 71046; 99285; 51702; 96374; J2930; 87077; 87186

== ENCOUNTER 2018-10-09 10:36 | Emergency (ER) | payer MEDICARE, OTHER ==
[2018-10-09] MEDS ORDERED: LIDOCAINE URO-JET JELLY 2% 5 ML KIT URETHRAL ONE (11:29)
--- NOTE | 2018-10-09 12:30 | ED ---
General Adult HPI - General Chief complaint: Recheck/Abnormal Lab/Rx Stated complaint: catheter replacement Time Seen by Provider: 10/09/18 10:59 Source: patient, family, RN notes reviewed Mode of arrival: wheelchair Limitations: no limitations - History of Present Illness Initial comments: Patient is a pleasant 82-year-old male presenting to the emergency Department with Avila catheter problem. Patient states catheter has been on for the past month. Patient has had previous catheters. Visiting nurse came out to change catheter however was unable to remove the catheter. Patient has no discomfort except for attempted removal. Patient does have catheter placed secondary to prostate problems. Patient has no other complaints. - Related Data Home Medications Medication Instructions Recorded Confirmed Atenolol 12.5 mg PO QAM 01/30/17 10/09/18 Nitroglycerin Sl Tabs [Nitrostat] 0.4 mg SUBLINGUAL Q5M PRN 01/30/17 10/09/18 Budesonide [Pulmicort] 0.5 mg INHALATION RT-BID PRN 05/24/17 10/09/18 Atorvastatin [Lipitor] 40 mg PO HS 11/21/17 10/09/18 Albuterol Inhaler [Ventolin Hfa 1 - 2 puff INHALATION RT-Q6H PRN 06/28/18 Inhaler] Calcium Carbonate [Calcium] 600 mg PO DAILY 07/21/18 10/09/18 Cholecalciferol (Vitamin D3) 2,000 unit PO DAILY 07/21/18 10/09/18 [Vitamin D3] Lisinopril [Zestril] 5 mg PO DAILY 07/21/18 10/09/18 Acetaminophen Tab [Tylenol Tab] 650 mg PO Q4H 09/05/18 10/09/18 Aspirin 81 mg PO DAILY 09/05/18 10/09/18 Tamsulosin [Flomax] 0.4 mg PO BID 10/09/18 10/09/18 Allergies Allergy/AdvReac Type Severity Reaction Status Date / Time No Known Allergies Allergy Verified 10/09/18 11:25 Review of Systems ROS Statement: Those systems with pertinent positive or pertinent negative responses have been documented in the HPI. ROS Other: All systems not noted in ROS Statement are negative. Constitutional: Denies: fever Eyes: Denies: eye pain ENT: Denies: ear pain Respiratory: Denies: cough Cardiovascular: Denies: chest pain Endocrine: Denies: fatigue Gastrointestinal: Denies: abdominal pain Genitourinary: Denies: dysuria Musculoskeletal: Denies: back pain Skin: Denies: rash Neurological: Denies: weakness Past Medical History Past Medical History: Coronary Artery Disease (CAD), Heart Failure, COPD, Hypertension, Myocardial Infarction ([place]), Pneumonia Additional Past Medical History / Comment(s): COPD, CHF, PULMONARY HTN, HX SHINGLES.,WEARS O2 VIA NC AT 2L AND AT 3L AT NIGHT , SOB WITH ACTIVITY."IRREG HEART BEAT", NOT SURE IF HAD PNE VACCINE,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 Last Myocardial Infarction Date:: 2016 History of Any Multi-Drug Resistant Organisms: None Reported Past Surgical History: Heart Catheterization, Heart Catheterization With Stent Additional Past Surgical History / Comment(s): stent RCA, CATARACTS SENAIT EYES Past Anesthesia/Blood Transfusion Reactions: No Reported Reaction Date of Last Stent Placement:: 2009 Past Psychological History: No Psychological Hx Reported Smoking Status: Former smoker Past Alcohol Use History: None Reported Past Drug Use History: None Reported - Past Family History Brother(s) Family Medical History: Cancer Additional Family Medical History / Comment(s): lung CA Father Family Medical History: Myocardial Infarction ([place]) Mother Additional Family Medical History / Comment(s): CEREBRAL HEMORRAGE General Exam Limitations: no limitations General appearance: alert, in no apparent distress Head exam: Present: atraumatic Eye exam: Present: normal appearance Neck exam: Present: normal inspection Respiratory exam: Present: normal lung sounds bilaterally Cardiovascular Exam: Present: regular rate, normal rhythm GI/Abdominal exam: Present: soft. Absent: tenderness exam: Present: normal inspection, other (Avila catheter placed) Extremities exam: Present: normal inspection Neurological exam: Present: alert Psychiatric exam: Present: normal affect, normal mood Skin exam: Present: normal color Course Vital Signs 10/09/18 10:39 Temperature 97.9 F Pulse Rate 82 Respiratory 24 Rate Blood Pressure 94/48 O2 Sat by Pulse 95 Oximetry - Reevaluation(s) Reevaluation #1: 10/09/18 13:00 Avila catheter placed by nursing without complication. Avila is draining. Procedures - Procedures Initial comment: Avila catheter removed by myself without complication. Disposition Clinical Impression: Encounter for Avila catheter replacement Disposition: HOME SELF-CARE Condition: Stable Instructions: Avila Catheter Placement and Care (ED) Additional Instructions: Please follow-up with your primary care physician and urologist in the next couple days for recheck. Return for pain, Avila catheter problems, worsening symptoms or other concerns Is patient prescribed a controlled substance at d/c from ED?: No Referrals: Shorty Desai MD [Primary Care Provider] - 1-2 days Marcos Vickers MD [STAFF PHYSICIAN] - 1-2 days Time of Disposition: 13:01
[2018-10-09 13:15] VITALS: BP 143/99; PULSE 68; RESP 18; TEMP 97
== END 2018-10-09 13:14 | disposition home or self-care (01) ==
LOC: EC 10:36
DX: Z46.6 Encounter for fitting and adjustment of urinary device (principal); J44.9 Chronic obstructive pulmonary disease, unspecified; I11.0 Hypertensive heart disease with heart failure; I50.9 Heart failure, unspecified; I25.10 Atherosclerotic heart disease of native coronary artery without angina pectoris; I25.2 Old myocardial infarction; Z87.891 Personal history of nicotine dependence; Z79.82 Long term (current) use of aspirin; Z79.891 Long term (current) use of opiate analgesic; Z79.899 Other long term (current) drug therapy
CPT/HCPCS: 51702; 99283

== ENCOUNTER 2018-11-08 23:28 | Emergency (ER) | payer MEDICARE, OTHER | END 2018-11-09 03:00 | disposition home or self-care (01) | LOC: EC 23:28 | DX: R33.9 Retention of urine, unspecified (principal); Z87.891 Personal history of nicotine dependence | CPT/HCPCS: 51702; 51798; 99283 ==

== ENCOUNTER 2018-11-25 18:34 | Emergency (ER) | payer MEDICARE, OTHER ==
[2018-11-25] MEDS ORDERED: IPRATROPIUM-ALBUTEROL 3 ML NEB INHALATION STA (19:13)
[2018-11-25] MEDS ORDERED: methylPREDNISolone SOD SUCCI 125 MG/2 ML VIAL IV STA (19:13)
[2018-11-25] MEDS ORDERED: LIDOCAINE URO-JET JELLY 2% 5 ML KIT URETHRAL ONE (19:14)
--- NOTE | 2018-11-25 20:04 | ED ---
SOB HPI - General Chief Complaint: Shortness of Breath Stated Complaint: Sob Time Seen by Provider: 11/25/18 19:04 Source: patient, RN notes reviewed Mode of arrival: wheelchair Limitations: no limitations - History of Present Illness Initial Comments: 83-year-old male present emergency Department chief complaint of shortness of breath, Avila catheter problem. Patient states she's noticed that he's not had any urine output since this morning from his catheter. Patient states he feels he has to go. He states he feels increased pressure in her lower abdomen. Patient states he's had a Avila catheter placed last 2 months secondary to stones in his bladder and which she has not candidate for surgery. Patient states that he's had this particular past. Patient denies any recent fever or chills. Denies any nausea vomiting diarrhea constipation. Patient states she' s not had any recent URI symptoms. She does say he wears oxygen at home chronically and states he usually has shortness of breath with stress. He states he believes his shortness of breath related to his catheter issue. 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 He does do updrafts 3-4 times daily and which this alleviates his shortness of breath. Patient denies chest pain. - Related Data Home Medications Medication Instructions Recorded Confirmed Atenolol 12.5 mg PO QAM 01/30/17 11/25/18 Nitroglycerin Sl Tabs [Nitrostat] 0.4 mg SUBLINGUAL Q5M PRN 01/30/17 11/25/18 Budesonide [Pulmicort] 0.5 mg INHALATION RT-BID PRN 05/24/17 11/25/18 Atorvastatin [Lipitor] 40 mg PO HS 11/21/17 11/25/18 Albuterol Inhaler [Ventolin Hfa 1 - 2 puff INHALATION RT-Q6H PRN 06/28/18 Inhaler] Calcium Carbonate [Calcium] 600 mg PO DAILY 07/21/18 11/25/18 Cholecalciferol (Vitamin D3) 2,000 unit PO DAILY 07/21/18 11/25/18 [Vitamin D3] Lisinopril [Zestril] 5 mg PO DAILY 07/21/18 11/25/18 Acetaminophen Tab [Tylenol Tab] 650 mg PO Q4H 09/05/18 11/25/18 Aspirin 81 mg PO DAILY 09/05/18 11/25/18 Tamsulosin [Flomax] 0.4 mg PO BID 10/09/18 11/25/18 Ipratropium-Albuterol Nebulize 3 ml INHALATION RT-QID 11/25/18 11/25/18 [Duoneb 0.5 mg-3 mg/3 ml Soln] predniSONE 10 mg PO DAILY 11/25/18 11/25/18 Allergies Allergy/AdvReac Type Severity Reaction Status Date / Time No Known Allergies Allergy Verified 11/25/18 19:22 Review of Systems ROS Statement: Those systems with pertinent positive or pertinent negative responses have been documented in the HPI. ROS Other: All systems not noted in ROS Statement are negative. 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 Last Myocardial Infarction Date:: 2016 History of Any Multi-Drug Resistant Organisms: None Reported Past Surgical History: Heart Catheterization, Heart Catheterization With Stent Additional Past Surgical History / Comment(s): stent RCA, CATARACTS SENAIT EYES Past Anesthesia/Blood Transfusion Reactions: No Reported Reaction Date of Last Stent Placement:: 2009 Past Psychological History: No Psychological Hx Reported Smoking Status: Former smoker Past Alcohol Use History: None Reported Past Drug Use History: None Reported - Past Family History Brother(s) Family Medical History: Cancer Additional Family Medical History / Comment(s): lung CA Father Family Medical History: Myocardial Infarction ([place]) Mother Additional Family Medical History / Comment(s): CEREBRAL HEMORRAGE General Exam Limitations: no limitations General appearance: alert, in no apparent distress Head exam: Present: atraumatic, normocephalic, normal inspection Eye exam: Present: normal appearance, PERRL, EOMI. Absent: scleral icterus, conjunctival injection, periorbital swelling ENT exam: Present: normal exam, mucous membranes moist, TM's normal bilaterally Neck exam: Present: normal inspection. Absent: tenderness, meningismus, lymphadenopathy Respiratory exam: Present: respiratory distress (Mild), wheezes, other ( Tachypnea). Absent: normal lung sounds bilaterally, rales, rhonchi, stridor Cardiovascular Exam: Present: regular rate, normal rhythm, normal heart sounds. Absent: systolic murmur, diastolic murmur, rubs, gallop, clicks GI/Abdominal exam: Present: soft, distended, tenderness (Suprapubic), normal bowel sounds. Absent: guarding, rebound, rigid Skin exam: Present: warm, dry, intact, normal color. Absent: rash Course Vital Signs 11/25/18 11/25/18 11/25/18 18:46 19:45 19:46 Temperature 98.1 F Pulse Rate 84 75 Respiratory 30 H 23 Rate Blood Pressure 105/54 O2 Sat by Pulse 100 Oximetry 11/25/18 19:52 Temperature Pulse Rate 75 Respiratory Rate Blood Pressure O2 Sat by Pulse Oximetry Medical Decision Making - Medical Decision Making 83-year-old male presented for Avila catheter issues, shortness of breath. Patient had Avila catheter changed and there was noted to have a kidney stone obstructing opening. Patient had over 1 L drain out initially and then his symptoms all resolved. Shortness of breath resolved after Avila catheter was placed. Patient's shortness breath was pain driven at this time. He is in no respiratory stress patient did have lab work, x-ray and EKG all unremarkable for acute findings. Patient was told that he had hemoglobin 9.8 but patient states that this is pretty normal for him. Patient feels stable for discharge family agrees. Return parameters were discussed. - Lab Data Result diagrams: 11/25/18 19:38 11/25/18 19:38 Lab Results 11/25/18 11/25/18 11/25/18 Range/Units 19:38 19:38 19:38 WBC 8.1 (3.8-10.6) k/uL RBC 3.41 L (4.30-5.90) m/uL Hgb 9.8 L (13.0-17.5) gm/dL Hct 31.7 L (39.0-53.0) % MCV 92.7 (80.0-100.0) fL MCH 28.6 (25.0-35.0) pg MCHC 30.9 L (31.0-37.0) g/dL RDW 13.7 (11.5-15.5) % Plt Count 331 (150-450) k/uL Neutrophils % 88 % Lymphocytes % 6 % Monocytes % 4 % Eosinophils % 0 % Basophils % 0 % Neutrophils # 7.2 (1.3-7.7) k/uL Lymphocytes # 0.5 L (1.0-4.8) k/uL Monocytes # 0.4 (0-1.0) k/uL Eosinophils # 0.0 (0-0.7) k/uL Basophils # 0.0 (0-0.2) k/uL Hypochromasia Moderate PT (9.0-12.0) sec INR (<1.2) APTT (22.0-30.0) sec Sodium 134 L (137-145) mmol/L Potassium 5.1 (3.5-5.1) mmol/L Chloride 93 L (98-107) mmol/L Carbon Dioxide 33 H (22-30) mmol/L Anion Gap 8 mmol/L BUN 19 (9-20) mg/dL Creatinine 0.96 (0.66-1.25) mg/dL Est GFR (CKD-EPI)AfAm 84 (>60 ml/min/1.73 sqM) Est GFR (CKD-EPI)NonAf 73 (>60 ml/min/1.73 sqM) Glucose 147 H (74-99) mg/dL Calcium 8.7 (8.4-10.2) mg/dL Magnesium 2.3 (1.6-2.3) mg/dL Total Bilirubin 0.4 (0.2-1.3) mg/dL AST 48 (17-59) U/L ALT 44 (21-72) U/L Alkaline Phosphatase 54 (38-126) U/L Total Creatine Kinase 76 (55-170) U/L CK-MB (CK-2) 2.4 (0.0-2.4) ng/mL CK-MB (CK-2) Rel Index 3.2 Troponin I <0.012 (0.000-0.034) ng/mL Total Protein 6.3 (6.3-8.2) g/dL Albumin 3.8 (3.5-5.0) g/dL 11/25/18 Range/Units 19:38 WBC (3.8-10.6) k/uL RBC (4.30-5.90) m/uL Hgb (13.0-17.5) gm/dL Hct (39.0-53.0) % MCV (80.0-100.0) fL MCH (25.0-35.0) pg MCHC (31.0-37.0) g/dL RDW (11.5-15.5) % Plt Count (150-450) k/uL Neutrophils % % Lymphocytes % % Monocytes % % Eosinophils % % Basophils % % Neutrophils # (1.3-7.7) k/uL Lymphocytes # (1.0-4.8) k/uL Monocytes # (0-1.0) k/uL Eosinophils # (0-0.7) k/uL Basophils # (0-0.2) k/uL Hypochromasia PT 10.4 (9.0-12.0) sec INR 1.0 (<1.2) APTT 25.8 (22.0-30.0) sec Sodium (137-145) mmol/L Potassium (3.5-5.1) mmol/L Chloride (98-107) mmol/L Carbon Dioxide (22-30) mmol/L Anion Gap mmol/L BUN (9-20) mg/dL Creatinine (0.66-1.25) mg/dL Est GFR (CKD-EPI)AfAm (>60 ml/min/1.73 sqM) Est GFR (CKD-EPI)NonAf (>60 ml/min/1.73 sqM) Glucose (74-99) mg/dL Calcium (8.4-10.2) mg/dL Magnesium (1.6-2.3) mg/dL Total Bilirubin (0.2-1.3) mg/dL AST (17-59) U/L ALT (21-72) U/L Alkaline Phosphatase (38-126) U/L Total Creatine Kinase (55-170) U/L CK-MB (CK-2) (0.0-2.4) ng/mL CK-MB (CK-2) Rel Index Troponin I (0.000-0.034) ng/mL Total Protein (6.3-8.2) g/dL Albumin (3.5-5.0) g/dL - EKG Data EKG Comments: EKG performed at 19:42 normal sinus rhythm with a rate of 72 NE 164 QRS 74 QT/ QTC 380/416 Disposition Clinical Impression: Complication of Avila catheter, Dyspnea Disposition: HOME SELF-CARE Condition: Stable Instructions: Avila Catheter Placement and Care (ED) Additional Instructions: Please return to the Emergency Department if symptoms worsen or any other concerns. Is patient prescribed a controlled substance at d/c from ED?: No Referrals: Shorty Desai MD [Primary Care Provider] - 1-2 days Time of Disposition: 20:58
[2018-11-25 20:07] LABS: Basophils % (A) 0 %; Eosinophils % (A) 0 %; HCT 31.7 % (39.0-53.0); HGB 9.8 gm/dL (13.0-17.5); Hypochromasia Moderate; Lymphocytes # (A) 0.5 k/uL (1.0-4.8); Lymphocytes % (A) 6 %; MCH 28.6 pg (25.0-35.0); MCHC 30.9 g/dL (31.0-37.0); MCV 92.7 fL (80.0-100.0); Mean Platelet Volume 7.4; Monocytes # (A) 0.4 k/uL (0-1.0); Monocytes % (A) 4 %; Neutrophils # (A) 7.2 k/uL (1.3-7.7); Neutrophils % (A) 88 %; Platelet Count 331 k/uL (150-450); RBC 3.41 m/uL (4.30-5.90); RDW 13.7 % (11.5-15.5); WBC 8.1 k/uL (3.8-10.6)
[2018-11-25 20:21] LABS: Albumin 3.8 g/dL (3.5-5.0); Calcium 8.7 mg/dL (8.4-10.2); Magnesium 2.3 mg/dL (1.6-2.3); Partial Thromboplastin Time 25.8 sec (22.0-30.0); Potassium 5.1 mmol/L (3.5-5.1); Prothrombin Time 10.4 sec (9.0-12.0); Total Bilirubin 0.4 mg/dL (0.2-1.3); Total Protein 6.3 g/dL (6.3-8.2)
--- NOTE | 2018-11-25 20:35 | XR ---
EXAMINATION TYPE: XR chest 2V DATE OF EXAM: 11/25/2018 COMPARISON: 09/05/2018 HISTORY: Difficulty breathing TECHNIQUE: Frontal and lateral views of the chest are obtained. FINDINGS: There is pulmonary hyperinflation and flattening of the diaphragm. Heart size is normal. T here are chest leads. Costophrenic angles are clear. Bones are osteopenic. IMPRESSION: COPD. Normal heart. No active cardiopulmonary disease. No change.
[2018-11-25 20:38] LABS: Creatine Kinase 76 U/L (55-170)
[2018-11-25 20:51] LABS: Creatine Kinase MB 2.4 ng/mL (0.0-2.4); Troponin I <0.012 ng/mL (0.000-0.034)
[2018-11-25] MEDS ORDERED: IBUPROFEN 600 MG TAB PO STA (21:31)
[2018-11-25] MEDS ORDERED: ACETAMINOPHEN TAB 325 MG TAB PO STA (21:31)
[2018-11-25 21:38] VITALS: BP 107/47; PULSE 69; RESP 16; TEMP 98
== END 2018-11-25 21:38 | disposition home or self-care (01) ==
LOC: EC 18:34
DX: T83.098A Other mechanical complication of other urinary catheter, initial encounter (principal); N20.0 Calculus of kidney; R06.02 Shortness of breath; R10.819 Abdominal tenderness, unspecified site; I25.10 Atherosclerotic heart disease of native coronary artery without angina pectoris; I11.0 Hypertensive heart disease with heart failure; I50.9 Heart failure, unspecified; J44.9 Chronic obstructive pulmonary disease, unspecified; I25.2 Old myocardial infarction; Z87.891 Personal history of nicotine dependence; Z79.82 Long term (current) use of aspirin; Z79.52 Long term (current) use of systemic steroids; Z79.899 Other long term (current) drug therapy; Z95.5 Presence of coronary angioplasty implant and graft; Z99.81 Dependence on supplemental oxygen
CPT/HCPCS: 99285; 51702; 96374; 36415; 94640; 93005; 80053; 82550; 82553; 83735; 84484; 85025; 85610; 85730; 71046; J2930

== ENCOUNTER 2019-10-30 14:41 | Inpatient (IN) | payer MEDICARE, OTHER ==
[2019-10-30] MEDS ORDERED: ALBUTEROL NEBULIZED 2.5 MG/3 ML INHALATION STA (14:56)
[2019-10-30] MEDS ORDERED: methylPREDNISolone SOD SUCCI 125 MG/2 ML VIAL IV STA (14:56)
[2019-10-30] MEDS ORDERED: IPRATROPIUM 0.5 MG/2.5 ML NEBU INHALATION STA (14:56)
[2019-10-30] MEDS ORDERED: SODIUM CHLORIDE 0.9% 1,000 ML IV STA (14:56)
[2019-10-30] MEDS ORDERED: fentaNYL (PF) 50 MCG/ML 2 ML AMP IVP STA ×2 (14:58→16:35)
[2019-10-30 15:38] LABS: Basophils % (A) 0 %; Eosinophils # (A) 0.1 k/uL (0-0.7); Eosinophils % (A) 1 %; HCT 30.7 % (39.0-53.0); HGB 9.6 gm/dL (13.0-17.5); Hypochromasia Moderate; Lymphocytes # (A) 0.4 k/uL (1.0-4.8); Lymphocytes % (A) 2 %; MCHC 31.4 g/dL (31.0-37.0); MCV 95.6 fL (80.0-100.0); Mean Platelet Volume 6.5; Monocytes # (A) 0.5 k/uL (0-1.0); Monocytes % (A) 3 %; Neutrophils # (A) 16.7 k/uL (1.3-7.7); Neutrophils % (A) 94 %; Platelet Count 429 k/uL (150-450); RBC 3.21 m/uL (4.30-5.90); RDW 14.1 % (11.5-15.5); WBC 17.8 k/uL (3.8-10.6)
[2019-10-30 15:47] LABS: Albumin 3.5 g/dL (3.5-5.0); Appearance,Urine Turbid (Clear); Bacteria,Urine Moderate /hpf; Bilirubin,Urine Negative (Negative); Blood,Urine Moderate (Negative); Calcium 9.6 mg/dL (8.4-10.2); Color,Urine Yellow; Glucose,Urine (UA) Negative (Negative); INR 0.9 (<1.2); Ketones,Urine Negative (Negative); Leukocyte Esterase,Urine Large (Negative); Magnesium 2.4 mg/dL (1.6-2.3); Mucus,Urine Rare /hpf; Nitrite,Urine Positive (Negative); Potassium 4.6 mmol/L (3.5-5.1); Protein,Urine 2+ (Negative); RBC,Urine 62 /hpf (0-5); Specific Gravity,Urine 1.019 (1.001-1.035); Total Bilirubin 0.8 mg/dL (0.2-1.3); Total Protein 5.8 g/dL (6.3-8.2); Urobilinogen,Urine <2.0 mg/dL (<2.0); WBC,Urine >182 /hpf (0-5)
[2019-10-30] MEDS ORDERED: cefTRIAXone IN SWFI 1,000 MG/10 ML SYRINGE IVP STA (15:48)
--- NOTE | 2019-10-30 15:49 | XR ---
EXAMINATION TYPE: XR chest 2V DATE OF EXAM: 10/30/2019 COMPARISON: 11/25/2018 HISTORY: Weakness TECHNIQUE: Frontal and lateral views of the chest are obtained. FINDINGS: There is no focal air space opacity, pleural effusion, or pneumothorax seen. There is pul monary hyperinflation of underlying COPD. The cardiac silhouette size is within normal limits. The osseous structures are intact. Symmetric nodular densities likely represent nipple shadows. Enlargeme nt of the main pulmonary arteries. Diffuse osseous demineralization. IMPRESSION: 1. COPD. 2. Enlargement of the main pulmonary arteries, suggesting pulmonary arterial hypertension. 3. Symmetric nodular densities most likely represent nipple shadows. This could be confirmed with non emergent repeat chest x-ray with nipple marker placement.
--- NOTE | 2019-10-30 15:52 | XR ---
EXAMINATION TYPE: XR KUB DATE OF EXAM: 10/30/2019 3:43 PM CLINICAL HISTORY: Abdominal pain TECHNIQUE: Single supine KUB image of the abdomen is obtained. COMPARISON: Right hip radiograph dated 06/28/2018. FINDINGS: Scattered gas is seen in non-distended small bowel loops. Gas and fecal material is seen in non-distended colon. Hyperdensities within the pelvis overlying the pubic bone and superior pubic ra mus are indeterminant. The density overlying the superior pubic ramus appears to be present on the pr ior hip radiograph of 06/28/2018 over the larger rounded 2.2 cm hyperdense structure is new. In the lef t mid abdomen a hyperdense structure likely is external. There is diffuse osseous demineralization no alberto. Extensive atherosclerosis is seen of the aortic branch vessels. The lung bases are clear and the osseous structures are intact. IMPRESSION: 1. Nonobstructive bowel gas pattern. 2. Hyperdense structures in the pelvis could relate to urinary bladder calculi or other calcified pel ramez lesion.
[2019-10-30 15:57] LABS: Partial Thromboplastin Time 19.5 sec (22.0-30.0)
[2019-10-30] MEDS ORDERED: VANCOMYCIN IV PER PHARMACY 1 EACH MISC MISCELLANE PRN (16:02)
[2019-10-30] MEDS ORDERED: PIPERACILLIN-TAZOBACTAM 3.375 GM in SODIUM CHLORIDE 0.9% 100 ML IVPB STA (16:02)
[2019-10-30] MEDS ORDERED: VANCOMYCIN 750 MG in SODIUM CHLORIDE 0.9% 250 ML IVPB STA (16:07)
[2019-10-30] MEDS ORDERED: NALOXONE 0.4 MG/ML 1 ML VIAL IV PRN (16:24)
[2019-10-30] MEDS ORDERED: ACETAMINOPHEN TAB 325 MG TAB PO PRN (16:24)
[2019-10-30] MEDS: SODIUM CHLORIDE 0.9% 1,000 ML IV ONE ×2 (16:25→16:50)
[2019-10-30] MEDS: SODIUM CHLORIDE 0.9% 1,000 ML IV SCH ×2 (16:51→23:55)
--- NOTE | 2019-10-30 16:55 | CT ---
EXAMINATION TYPE: CT abdomen pelvis w con DATE OF EXAM: 10/30/2019 COMPARISON: HISTORY: Generalized abdominal pain with bilateral leg pain. CT DLP: 468.8 mGycm CONTRAST: CT scan of the abdomen and pelvis is performed without Oral Contrast and with IV Contrast, patient in jected with 100 mL of Isovue 300. FINDINGS: LUNG BASES-: No visible nodule. No infiltrate. LIVER/GB: No calcified gallstones. No space occupying hepatic lesion. Biliary tree is of normal ca liber. PANCREAS: No inflammation. No distinct mass. SPLEEN: No splenic enlargement. No lesion seen. ADRENALS: No nodule. No thickening. KIDNEYS/BLADDER: No hydronephrosis. No nephrolithiasis. No distinct renal mass. Urinary bladder g rossly unremarkable. Avila catheter is in place. Penile pump reservoir noted on the right. BOWEL: Severe wall thickening of the colon extending from the mid transverse colon through the proxim al sigmoid colon compatible with nonspecific colitis. There is mild reactive ileus of the stomach and small bowel. No evidence for perforation or free air at this time. GENITAL ORGANS: No gross abnormality. LYMPH NODES: No greater than 1cm abdominal or pelvic lymph nodes are appreciated. AORTA: No significant abnormality. OSSEOUS STRUCTURES: No significant abnormality is seen. OTHER: No significant additional abnormality is seen. IMPRESSION: 1. Findings felt to reflect nonspecific colitis with causes including infectious, inflammatory and va scular etiologies. No evidence of perforation or abscess.
[2019-10-30] MEDS ORDERED: SODIUM CHLORIDE 0.9% 1,000 ML IV ONE (17:14)
[2019-10-30] MEDS ORDERED: LEVOFLOXACIN 500MG-D5W PMX 500 MG in DEXTROSE/WATER 1 100ML.BAG IVPB STA (17:19)
[2019-10-30] MEDS ORDERED: metroNIDAZOLE-NS PMX 500 MG in SALINE 1 100ML.BAG IVPB STA (17:19)
--- NOTE | 2019-10-30 17:28 | ED ---
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 the patient had an episode of watery diarrhea, just prior to arrival. Prior to this patient had been feeling at baseline, he does have [place] cough and dyspnea is on home oxygen. He had been encouraged by family members to present to the emergency department for evaluation patient declined until this morning. He is complaining of bilateral leg pain, diffuse abdominal pain. History is limited secondary to patient being in extremis. - Related Data Home Medications Medication Instructions Recorded Confirmed Atenolol 12.5 mg PO DAILY 01/30/17 10/30/19 Nitroglycerin Sl Tabs [Nitrostat] 0.4 mg SUBLINGUAL Q5M PRN 01/30/17 10/30/19 Budesonide [Pulmicort] 0.5 mg INHALATION RT-BID 05/24/17 10/30/19 Atorvastatin [Lipitor] 40 mg PO HS 11/21/17 10/30/19 Albuterol Inhaler [Ventolin Hfa 1 - 2 puff INHALATION RT-Q6H PRN 06/28/18 10/30/19 Inhaler] Calcium Carbonate [Calcium] 600 mg PO DAILY 07/21/18 10/30/19 Cholecalciferol (Vitamin D3) 2,000 unit PO DAILY 07/21/18 10/30/19 [Vitamin D3] Lisinopril [Zestril] 5 mg PO DAILY 07/21/18 10/30/19 Acetaminophen Tab [Tylenol Tab] 650 mg PO Q4H PRN 09/05/18 10/30/19 Aspirin 81 mg PO DAILY 09/05/18 10/30/19 Tamsulosin [Flomax] 0.4 mg PO BID 10/09/18 10/30/19 predniSONE 10 mg PO DAILY 11/25/18 10/30/19 Albuterol Nebulized [Ventolin 2.5 mg INHALATION RT-QID PRN 10/30/19 10/30/19 Nebulized] Formoterol Fumarate [Perforomist] 20 mcg INHALATION RT-BID 10/30/19 10/30/19 Umeclidinium [place] [Incruse 1 puff INHALATION RT-DAILY 10/30/19 10/30/19 Ellipta] Allergies Allergy/AdvReac Type Severity Reaction Status Date / Time No Known Allergies Allergy Verified 10/30/19 17:50 Review of Systems ROS Statement: Those systems with pertinent positive or pertinent negative responses have been documented in the HPI. ROS Other: All systems not noted in ROS Statement are negative. 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 Last Myocardial Infarction Date:: 2016 History of Any Multi-Drug Resistant Organisms: None Reported Past Surgical History: Heart Catheterization, Heart Catheterization With Stent Additional Past Surgical History / Comment(s): stent RCA, CATARACTS SENAIT EYES Past Anesthesia/Blood Transfusion Reactions: No Reported Reaction Date of Last Stent Placement:: 2009 Past Psychological History: No Psychological Hx Reported Smoking Status: Former smoker Past Alcohol Use History: None Reported Past Drug Use History: None Reported - Past Family History Brother(s) Family Medical History: Cancer Additional Family Medical History / Comment(s): lung CA Father Family Medical History: Myocardial Infarction ([place]) Mother Additional Family Medical History / Comment(s): CEREBRAL HEMORRAGE General Exam Limitations: no limitations General appearance: alert, in distress Head exam: Present: atraumatic, normocephalic Eye exam: Present: PERRL ENT exam: Present: mucous membranes dry Neck exam: Present: normal inspection. Absent: tenderness, meningismus Respiratory exam: Present: respiratory distress, wheezes, decreased breath sounds, other (Tachypnea) Cardiovascular Exam: Present: regular rate, normal rhythm. Absent: normal heart sounds (Distant heart sounds) GI/Abdominal exam: Present: tenderness, guarding, rigid. Absent: distended Extremities exam: Present: other (Extremities cool to the touch). Absent: pedal edema, joint swelling Neurological exam: Present: alert, oriented X3, CN II-XII intact. Absent: motor sensory deficit Skin exam: Present: dry, intact, cyanosis, pallor Course Vital Signs 10/30/19 10/30/19 10/30/19 14:50 15:48 16:07 Temperature 97.4 F L Pulse Rate 54 L 54 L 54 L Pulse Rate [ Pulse Oximetery ] Respiratory 18 Rate Blood Pressure 88/44 Blood Pressure [Left Arm] O2 Sat by Pulse 91 L Oximetry 10/30/19 10/30/19 10/30/19 16:53 17:05 17:16 Temperature Pulse Rate 58 L 78 76 Pulse Rate [ Pulse Oximetery ] Respiratory 18 18 18 Rate Blood Pressure 94/37 94/31 98/41 Blood Pressure [Left Arm] O2 Sat by Pulse 94 L 94 L 97 Oximetry 10/30/19 10/30/19 10/30/19 17:49 17:51 18:51 Temperature 99.0 F Pulse Rate Pulse Rate [ 80 Pulse Oximetery ] Respiratory 23 20 Rate Blood Pressure 92/41 Blood Pressure 90/50 [Left Arm] O2 Sat by Pulse 84 L 97 Oximetry EKG Findings - EKG Comments: EKG Findings:: EKG: Sinus rhythm occasional PVC, low voltage, rate of 73, SD interval 166, QRS duration [address] segment elevation T-wave inversion in V2 through V6. Medical Decision Making - Medical Decision Making 84-year-old male presents for evaluation of dyspnea, abdominal pain. Patient is extremities, history is somewhat limited. On exam patient is hypotensive, he has diminished air entry bilaterally, tachypnea with respiratory rate of 30. He has an abdomen which is nondistended, diffusely tender. His extremities are cool to the touch. I did have a discussion with the family about CODE STATUS at the time of arrival due to the patient's baseline chronic medical issues. Workup was initiated. He has a significantly elevated white blood cell count at 17.8. He has a hemoglobin 9.6 which is down trending but similar to recent of 9.8. He is hyponatremic with a sodium of 131. He has a lactic of 6.7. Urinalysis is positive for UTI. Urine culture is ordered in addition to blood culture. He started on antibiotics to cover UTI and sepsis. Computed tomography scan is ordered and obtained in the emergency department which shows diffuse colitis infectious versus ischemic. Given the patient's risk factors and the onset of symptoms I do suspect this may be an ischemic colitis especially with the significantly elevated lactic acid. I had a long discussion with the family about the further evaluation and treatment of ischemic colitis and at this time it is decided that the patient will be admitted for antibiotics, fluids and pain control but no surgical evaluation or further evaluation of ischemic colitis. Family requested the patient be made DO NOT RESUSCITATE. Multiple family members present and agreeable including the patient's and shoulder. Patient himself would not want to be resuscitated and would not want to undergo surgery. Diagnosis: Colitis, infectious versus ischemic, lactic acidosis, hyponatremia, COPD, anemia, sepsis. Case discussed with Dr. Nuñez, and Dr. Moura. - Lab Data Result diagrams: 11/01/19 04:39 11/01/19 04:39 Lab Results 10/30/19 10/30/19 10/30/19 Range/Units 15:14 15:14 15:14 WBC 17.8 H (3.8-10.6) k/uL RBC 3.21 L (4.30-5.90) m/uL Hgb 9.6 L (13.0-17.5) gm/dL Hct 30.7 L (39.0-53.0) % MCV 95.6 (80.0-100.0) fL MCH 30.0 (25.0-35.0) pg MCHC 31.4 (31.0-37.0) g/dL RDW 14.1 (11.5-15.5) % Plt Count 429 (150-450) k/uL Neutrophils % 94 % Lymphocytes % 2 % Monocytes % 3 % Eosinophils % 1 % Basophils % 0 % Neutrophils # 16.7 H (1.3-7.7) k/uL Lymphocytes # 0.4 L (1.0-4.8) k/uL Monocytes # 0.5 (0-1.0) k/uL Eosinophils # 0.1 (0-0.7) k/uL Basophils # 0.0 (0-0.2) k/uL Hypochromasia Moderate PT (9.0-12.0) sec INR (<1.2) APTT (22.0-30.0) sec Sodium 131 L (137-145) mmol/L Potassium 4.6 (3.5-5.1) mmol/L Chloride 97 L (98-107) mmol/L Carbon Dioxide 26 (22-30) mmol/L Anion Gap 8 mmol/L BUN 17 (9-20) mg/dL Creatinine 1.03 (0.66-1.25) mg/dL Est GFR (CKD-EPI)AfAm 77 (>60 ml/min/1.73 sqM) Est GFR (CKD-EPI)NonAf 66 (>60 ml/min/1.73 sqM) Glucose 112 H (74-99) mg/dL Lactic Ac Sepsis Rflx Plasma Lactic Acid Rufus 6.7 H* (0.7-2.0) mmol/L Calcium 9.6 (8.4-10.2) mg/dL Magnesium 2.4 H (1.6-2.3) mg/dL Total Bilirubin 0.8 (0.2-1.3) mg/dL AST 28 (17-59) U/L ALT 24 (21-72) U/L Alkaline Phosphatase 43 (38-126) U/L Total Protein 5.8 L (6.3-8.2) g/dL Albumin 3.5 (3.5-5.0) g/dL Urine Color Urine Appearance (Clear) Urine pH (5.0-8.0) Ur Specific [place] (1.001-1.035) Urine Protein (Negative) Urine Glucose (UA) (Negative) Urine Ketones (Negative) Urine Blood (Negative) Urine Nitrite (Negative) Urine Bilirubin (Negative) Urine Urobilinogen (<2.0) mg/dL Ur Leukocyte Esterase (Negative) Urine RBC (0-5) /hpf Urine WBC (0-5) /hpf Urine WBC Clumps (None) /hpf Urine Bacteria (None) /hpf Urine Mucus (None) /hpf 10/30/19 10/30/19 10/30/19 Range/Units 15:14 15:14 16:00 WBC (3.8-10.6) k/uL RBC (4.30-5.90) m/uL Hgb (13.0-17.5) gm/dL Hct (39.0-53.0) % MCV (80.0-100.0) fL MCH (25.0-35.0) pg MCHC (31.0-37.0) g/dL RDW (11.5-15.5) % Plt Count (150-450) k/uL Neutrophils % % Lymphocytes % % Monocytes % % Eosinophils % % Basophils % % Neutrophils # (1.3-7.7) k/uL Lymphocytes # (1.0-4.8) k/uL Monocytes # (0-1.0) k/uL Eosinophils # (0-0.7) k/uL Basophils # (0-0.2) k/uL Hypochromasia PT 10.0 (9.0-12.0) sec INR 0.9 (<1.2) APTT 19.5 L (22.0-30.0) sec Sodium (137-145) mmol/L Potassium (3.5-5.1) mmol/L Chloride (98-107) mmol/L Carbon Dioxide (22-30) mmol/L Anion Gap mmol/L BUN (9-20) mg/dL Creatinine (0.66-1.25) mg/dL Est GFR (CKD-EPI)AfAm (>60 ml/min/1.73 sqM) Est GFR (CKD-EPI)NonAf (>60 ml/min/1.73 sqM) Glucose (74-99) mg/dL Lactic Ac Sepsis Rflx Y Plasma Lactic Acid Rufus (0.7-2.0) mmol/L Calcium (8.4-10.2) mg/dL Magnesium (1.6-2.3) mg/dL Total Bilirubin (0.2-1.3) mg/dL AST (17-59) U/L ALT (21-72) U/L Alkaline Phosphatase (38-126) U/L Total Protein (6.3-8.2) g/dL Albumin (3.5-5.0) g/dL Urine Color Yellow Urine Appearance Turbid (Clear) Urine pH 6.0 (5.0-8.0) Ur Specific [place] 1.019 (1.001-1.035) Urine Protein 2+ H (Negative) Urine Glucose (UA) Negative (Negative) Urine Ketones Negative (Negative) Urine Blood Moderate H (Negative) Urine Nitrite Positive (Negative) Urine Bilirubin Negative (Negative) Urine Urobilinogen <2.0 (<2.0) mg/dL Ur Leukocyte Esterase Large H (Negative) Urine RBC 62 H (0-5) /hpf Urine WBC >182 H (0-5) /hpf Urine WBC Clumps Many H (None) /hpf Urine Bacteria Moderate H (None) /hpf Urine Mucus Rare H (None) /hpf Critical Care Time Critical Care Time: Yes Total Critical Care Time: 35 Disposition Clinical Impression: COPD with hypoxia, Sepsis, UTI (urinary tract infection), Colitis Disposition: ADMITTED IP TO THIS [facility] Condition: Poor Is patient prescribed a controlled substance at d/c from ED?: No Decision to Admit Reason: Admit from EC Decision Date: 10/30/19 Decision Time: 17:28
[2019-10-30 20:54] LABS: Glucose,Whole Blood 142 mg/dL (75-99)
[2019-10-30] MEDS ORDERED: ENOXAPARIN 30 MG/0.3 ML SYRINGE SQ SCH (21:30)
[2019-10-30] MEDS: HYDROmorphone 1 MG/ML 1 ML SYRINGE IVP PRN (21:39)
[2019-10-30] MEDS: IPRATROPIUM-ALBUTEROL 3 ML NEB INHALATION SCH (21:42)
[2019-10-30] MEDS: BUDESONIDE 1 MG/2 ML NEBU INHALATION SCH (21:42)
--- NOTE | 2019-10-30 21:45 | P.HPIM ---
History of Present Illness H&P Date: 10/30/19 Chief Complaint: Abdominal pain History of presenting complaint: This is a pleasant 84-year-old patient of Dr. muir from [place]. Chronic stable medical conditions include congestive heart failure EF 25%, coronary artery disease with stent, hypertension, hyperlipidemia, secondary probably hypertension. History is obtained by patient's and grandson Doug efren nurse at the bedside. Had a baseline patient is able to walk a few steps cavity is the short of breath. Has good mentation. Patient is a small eater. Patient has end-stage COPD. Is now. 4 L of oxygen at home. Sometimes turned up to 5 minutes.. Patient does smoke heavily in the past. Today patient started having after breakfast, increasing abdominal pain diffuse. Did have a bowel movement. Normally has a bowel movement every day. Patient became rather severe. Some nausea was present. No fever no chills. Per the ER. Computed tomography scan of the ER showed colitis. Patient also requiring high flow oxygen. Patient blood pressures running low. After discussion of the family wishes patient be moved to ICU. Dr. Jansen from pest control service technician was consulted. Review of systems: GEN.: Tired EYES: None HEENT: Decreased hearing NECK: None RESPIRATORY: [Short of breath and wheezing CARDIOVASCULAR: None GASTROINTESTINAL: As above GENITOURINARY: None MUSCULOSKELETAL: Joint pains LYMPHATICS: None HEMATOLOGICAL: None PSYCHIATRY: None NEUROLOGICAL: None Past medical history to include: Chronic kidney disease, CHF EF 35%, secondary probably hypertension, hypertension, hyperlipidemia, coronary artery disease with stent, end-stage COPD, home oxygen 4 L Social history: Lives with his , used to work on the [employer] admitted her breasts, any. Smoked about a pack a day for 50 years stopped about 10 years ago. Patient stopped drinking alcohol about 31 years ago Physical examination: VITAL SIGNS: 99, 80, 23, 90/50, 88% on high flow oxygen 40 L GENERAL: BMI 30.3, laying in bed short of breath uncomfortable. EYES: Pupils equal. Conjunctiva palel. HEENT: External appearance of nose and ears normal, oral cavity grossly normal. NECK: JVD not raised; masses not palpable. HEART: First and second heart sounds are normal; no edema. LUNGS: Respiratory rate increased, not able to speak in full sentences, accessory muscle working,Airvo in place. ABDOMEN: Soft, mild diffuse tenderness, no cardiology 60, liver spleen not palpable, no masses palpable. PSYCH: Alert and oriented x3; mood and affect very anxiousl. NEUROLOGICAL: Cranial nerves grossly intact; no facial asymmetry, power and sensation grossly intact. LYMPHATICS: No lymph nodes palpable in the axilla and neck MUSCULAR skeletal: Diffuse fisting her muscles, loss of secretions fact, bony prominences, evidence of OA INVESTIGATIONS, reviewed in the clinical context: White count 7.8 hemoglobin 9.6 platelets 429 potassium 4.6 creatinine 1.03 lactic acid 6.7 UA positive for leukoesterase, WBC EKG tracing personally reviewed by me-normal sinus rhythm with some ST segment changes Chest x-ray film personally reviewed by me-hyperinflation, prominent pulmonary artery, no infiltrates Computed tomography scan of the abdomen-severe wall thickening of the colon extending from the mid transverse colon through proximal sigmoid colon Assessment: -Acute ischemic colitis, but the rather typical location from the transverse colon to the proximal descending colon -Acute COPD exacerbation and an ex-smoker -Acute on chronic hypoxic respiratory failure from above -Coronary artery disease with a prior history of stent -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 Put on nebulized bronchodilators, IV and inhaled steroids. Will be given ice chips. IV antibiotics including IV ceftriaxone and IV Flagyl. Consultations made to GI and pest control service technician Dr. Haider. St for DVT prophylaxis. Patient's in the ICU. For pain control Dilaudid will be given. Advanced care planning: This was discussed with the patient his and 3 children and grandson. Patient was explained his advanced condition his and states lung condition coronary artery disease malnutrition with a BMI of 13. Patient does express understanding of his current prognosis. He is agreed to proceed with her DO NOT RESUSCITATE CODE STATUS. Otherwise for treatment to be done. Patient makes his own decisions. With help from his family members. Questions were answered. About 25 minutes was spent for advanced care planning. 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 DESIGNER UNABLE TO VERIFY AT TIME OF THIS ADMIT Last Myocardial Infarction Date:: 2016 History of Any Multi-Drug Resistant Organisms: None Reported Past Surgical History: Heart Catheterization, Heart Catheterization With Stent Additional Past Surgical History / Comment(s): stent RCA, CATARACTS SENAIT EYES Past Anesthesia/Blood Transfusion Reactions: No Reported Reaction Date of Last Stent Placement:: 2009 Past Psychological History: No Psychological Hx Reported Smoking Status: Former smoker Past Alcohol Use History: None Reported Additional Past Alcohol Use History / Comment(s): QUIT SMOKING 2009, SMOKED 1PPD Past Drug Use History: None Reported - Past Family History Brother(s) Family Medical History: Cancer Additional Family Medical History / Comment(s): lung CA Father Family Medical History: Myocardial Infarction ([place]) Mother Additional Family Medical History / Comment(s): CEREBRAL HEMORRAGE Medications and Allergies Home Medications Medication Instructions Recorded Confirmed Type Atenolol 12.5 mg PO DAILY 01/30/17 10/30/19 History Nitroglycerin Sl Tabs [Nitrostat] 0.4 mg SUBLINGUAL Q5M PRN 01/30/17 10/30/19 History Budesonide [Pulmicort] 0.5 mg INHALATION RT-BID 05/24/17 10/30/19 History Atorvastatin [Lipitor] 40 mg PO HS 11/21/17 10/30/19 History Albuterol Inhaler [Ventolin Hfa 1 - 2 puff INHALATION RT-Q6H PRN 06/28/18 10/30/19 History Inhaler] Calcium Carbonate [Calcium] 600 mg PO DAILY 07/21/18 10/30/19 History Cholecalciferol (Vitamin D3) 2,000 unit PO DAILY 07/21/18 10/30/19 History [Vitamin D3] Lisinopril [Zestril] 5 mg PO DAILY 07/21/18 10/30/19 History Acetaminophen Tab [Tylenol Tab] 650 mg PO Q4H PRN 09/05/18 10/30/19 History Aspirin 81 mg PO DAILY 09/05/18 10/30/19 History Tamsulosin [Flomax] 0.4 mg PO BID 10/09/18 10/30/19 History predniSONE 10 mg PO DAILY 11/25/18 10/30/19 History Albuterol Nebulized [Ventolin 2.5 mg INHALATION RT-QID PRN 10/30/19 10/30/19 History Nebulized] Formoterol Fumarate [Perforomist] 20 mcg INHALATION RT-BID 10/30/19 10/30/19 History Umeclidinium [place] [Incruse 1 puff INHALATION RT-DAILY 10/30/19 10/30/19 History Ellipta] Allergies Allergy/AdvReac Type Severity Reaction Status Date / Time No Known Allergies Allergy Verified 10/30/19 17:50 Physical Exam Vitals: Vital Signs Temp Pulse Pulse Resp BP BP Pulse Ox 10/30/19 21:20 94 L 10/30/19 20:23 96 10/30/19 20:00 99.0 F 80 23 90/50 88 L 10/30/19 19:10 75 20 96/60 88 L 10/30/19 19:06 96 10/30/19 19:00 76 22 92/50 87 L 10/30/19 18:51 20 92/41 10/30/19 17:51 97 10/30/19 17:49 99.0 F 80 23 90/50 84 L 10/30/19 17:16 76 18 98/41 97 10/30/19 17:05 78 18 94/31 94 L 10/30/19 16:53 58 L 18 94/37 94 L 10/30/19 16:07 54 L 10/30/19 15:48 54 L 10/30/19 14:50 97.4 F L 54 L 18 88/44 91 L Intake and Output 10/30/19 10/30/19 10/30/19 06:59 14:59 22:59 Intake Total 425 Balance 425 Intake: Intake, IV Titration 425 Amount Sodium Chloride 0.9% 1, 175 000 ml @ 125 mls/hr IV . Q8H [facility] Rx#:[id number] Vancomycin 750 mg In 250 Sodium Chloride 0.9% 250 ml @ 125 mls/hr IVPB ONCE STA Rx#:[id number] Other: Voiding Method Indwelling Catheter Weight 38.555 kg 38.555 kg Results CBC & Chem 7: 10/30/19 15:14 10/30/19 15:14 Labs: Abnormal Lab Results - Last 24 Hours (Table) 10/30/19 10/30/19 10/30/19 Range/Units 15:14 15:14 15:14 WBC 17.8 H (3.8-10.6) k/uL RBC 3.21 L (4.30-5.90) m/uL Hgb 9.6 L (13.0-17.5) gm/dL Hct 30.7 L (39.0-53.0) % Neutrophils # 16.7 H (1.3-7.7) k/uL Lymphocytes # 0.4 L (1.0-4.8) k/uL APTT (22.0-30.0) sec Sodium 131 L (137-145) mmol/L Chloride 97 L (98-107) mmol/L Glucose 112 H (74-99) mg/dL POC Glucose (mg/dL) (75-99) mg/dL Plasma Lactic Acid Rufus 6.7 H* (0.7-2.0) mmol/L Magnesium 2.4 H (1.6-2.3) mg/dL Total Protein 5.8 L (6.3-8.2) g/dL Urine Protein (Negative) Urine Blood (Negative) Ur Leukocyte Esterase (Negative) Urine RBC (0-5) /hpf Urine WBC (0-5) /hpf Urine WBC Clumps (None) /hpf Urine Bacteria (None) /hpf Urine Mucus (None) /hpf 10/30/19 10/30/19 10/30/19 Range/Units 15:14 15:14 19:35 WBC (3.8-10.6) k/uL RBC (4.30-5.90) m/uL Hgb (13.0-17.5) gm/dL Hct (39.0-53.0) % Neutrophils # (1.3-7.7) k/uL Lymphocytes # (1.0-4.8) k/uL APTT 19.5 L (22.0-30.0) sec Sodium (137-145) mmol/L Chloride (98-107) mmol/L Glucose (74-99) mg/dL POC Glucose (mg/dL) (75-99) mg/dL Plasma Lactic Acid Rufus 3.2 H* (0.7-2.0) mmol/L Magnesium (1.6-2.3) mg/dL Total Protein (6.3-8.2) g/dL Urine Protein 2+ H (Negative) Urine Blood Moderate H (Negative) Ur Leukocyte Esterase Large H (Negative) Urine RBC 62 H (0-5) /hpf Urine WBC >182 H (0-5) /hpf Urine WBC Clumps Many H (None) /hpf Urine Bacteria Moderate H (None) /hpf Urine Mucus Rare H (None) /hpf 10/30/19 Range/Units 20:43 WBC (3.8-10.6) k/uL RBC (4.30-5.90) m/uL Hgb (13.0-17.5) gm/dL Hct (39.0-53.0) % Neutrophils # (1.3-7.7) k/uL Lymphocytes # (1.0-4.8) k/uL APTT (22.0-30.0) sec Sodium (137-145) mmol/L Chloride (98-107) mmol/L Glucose (74-99) mg/dL POC Glucose (mg/dL) 142 H (75-99) mg/dL Plasma Lactic Acid Rufus (0.7-2.0) mmol/L Magnesium (1.6-2.3) mg/dL Total Protein (6.3-8.2) g/dL Urine Protein (Negative) Urine Blood (Negative) Ur Leukocyte Esterase (Negative) Urine RBC (0-5) /hpf Urine WBC (0-5) /hpf Urine WBC Clumps (None) /hpf Urine Bacteria (None) /hpf Urine Mucus (None) /hpf Thrombosis Risk Factor Assmnt - Choose All That Apply Any of the Below Risk Factors Present?: Yes Other Risk Factors: Yes Each Risk Factor Represents 3 Points: Age 75 years or older Other congenital or acquired thrombophilia - If yes, enter type in comment: Yes Thrombosis Risk Factor Assessment Total Risk Factor Score: 3 Thrombosis Risk Factor Assessment Level: Moderate Risk
[2019-10-30] MEDS: methylPREDNISolone SOD SUCCI 40 MG/ML 1 ML VIAL IV SCH (22:08)
[2019-10-30] MEDS: ATORVASTATIN 40 MG TAB PO SCH (22:08)
[2019-10-30] MEDS: TAMSULOSIN 0.4 MG CAP.ER.24H PO SCH (22:08)
[2019-10-30] MEDS: metroNIDAZOLE-NS PMX 500 MG in SALINE 1 100ML.BAG IVPB SCH (22:32)
[2019-10-30] MEDS ORDERED: ONDANSETRON 4 MG/2 ML VIAL IVP PRN (23:24)
[2019-10-31] MEDS: IPRATROPIUM-ALBUTEROL 3 ML NEB INHALATION SCH ×6 (00:07→19:25)
[2019-10-31] MEDS: HYDROmorphone 0.5 MG/0.5 ML SYRINGE IVP PRN ×2 (02:47)
[2019-10-31 03:06] LABS: Appearance,Urine Clear (Clear); Bacteria,Urine Rare /hpf; Bilirubin,Urine Negative (Negative); Blood,Urine Moderate (Negative); Color,Urine Yellow; Glucose,Urine (UA) Negative (Negative); Ketones,Urine Negative (Negative); Leukocyte Esterase,Urine Moderate (Negative); Mucus,Urine Rare /hpf; Nitrite,Urine Negative (Negative); PH, Urine 5.5 (5.0-8.0); Protein,Urine Trace (Negative); RBC,Urine 13 /hpf (0-5); Urobilinogen,Urine <2.0 mg/dL (<2.0); WBC,Urine 24 /hpf (0-5)
[2019-10-31 04:12] LABS: Basophils % (A) 0 %; Eosinophils % (A) 0 %; HCT 27.6 % (39.0-53.0); HGB 8.2 gm/dL (13.0-17.5); Hypochromasia Moderate; Lymphocytes # (A) 0.2 k/uL (1.0-4.8); Lymphocytes % (A) 1 %; MCH 28.6 pg (25.0-35.0); MCHC 29.8 g/dL (31.0-37.0); MCV 95.7 fL (80.0-100.0); Monocytes # (A) 0.8 k/uL (0-1.0); Monocytes % (A) 3 %; Neutrophils # (A) 23.7 k/uL (1.3-7.7); Neutrophils % (A) 96 %; Platelet Count 375 k/uL (150-450); RBC 2.88 m/uL (4.30-5.90); RDW 14.1 % (11.5-15.5); WBC 24.8 k/uL (3.8-10.6)
[2019-10-31 04:27] LABS: Calcium 7.7 mg/dL (8.4-10.2); Potassium 4.9 mmol/L (3.5-5.1)
[2019-10-31] MEDS: HYDROmorphone 1 MG/ML 1 ML SYRINGE IVP PRN (05:14)
[2019-10-31] MEDS: methylPREDNISolone SOD SUCCI 40 MG/ML 1 ML VIAL IV SCH ×3 (05:18→21:48)
[2019-10-31] MEDS: BUDESONIDE 1 MG/2 ML NEBU INHALATION SCH ×2 (07:36→19:25)
--- NOTE | 2019-10-31 07:51 | XR ---
EXAMINATION TYPE: XR chest 1V portable DATE OF EXAM: 10/31/2019 COMPARISON: 10/30/2019 HISTORY: Shortness of breath TECHNIQUE: Single frontal view of the chest is obtained. FINDINGS: Emphysematous changes are seen in the lungs with enlargement of the coronary arteries. Bro nchiectasis and peribronchial cuffing are seen of the upper lungs towards the lung apices medially. C ardiomediastinal silhouette is within normal limits. Generalized osseous demineralization. The previo usly seen nodular densities are presumed to represent nipple shadows as they are no longer present on today's exam (due to change in positioning). IMPRESSION: 1. Biapical peribronchial cuffing could represent bronchitis in this patient with underlying COPD, ap pearing new from the prior exam. 2. Findings suggesting underlying pulmonary tumor hypertension.
[2019-10-31] MEDS ORDERED: LORazepam 0.5 MG TAB PO STA (08:48)
[2019-10-31] MEDS: TAMSULOSIN 0.4 MG CAP.ER.24H PO SCH ×2 (09:11→22:29)
[2019-10-31] MEDS: ASPIRIN 81 MG PO SCH (09:11)
[2019-10-31] MEDS: metroNIDAZOLE-NS PMX 500 MG in SALINE 1 100ML.BAG IVPB SCH ×3 (09:11→23:03)
[2019-10-31] MEDS: SODIUM CHLORIDE 0.9% 1,000 ML IV SCH ×2 (09:12→15:27)
[2019-10-31] MEDS: PANTOPRAZOLE 40 MG/10 ML VIAL IV SCH (09:13)
[2019-10-31] MEDS: LORazepam 2 MG/ML INJ IV PRN ×5 (10:26→23:03)
--- NOTE | 2019-10-31 11:50 | P.CNPUL ---
History of Present Illness Consult date: 10/31/19 Requesting physician: Jean-Paul Nuñez Reason for consult: COPD Chief complaint: Abdominal pain History of present illness: This is an 84-year-old white male with history of severe COPD, gold stage IV, oxygen dependent for many years, known history of cardiomyopathy and LV dysfunction with ejection fraction of 25%. History of coronary artery disease, hypertension, hyperlipidemia, normally sees Dr. Barr on outpatient basis for his underlying COPD. Patient was brought into the ER last night with diffuse abdominal pain of one day duration. Pain was severe and associated with some nausea, but no vomiting. No fever no chills. No melena and no hematemesis. CT of the abdomen and pelvis was consistent with possible colitis, it showed severe wall thickening of the colon extending from the mid transverse colon through the proximal sigmoid colon compatible with colitis. There is also evidence of mild reactive ileus of the stomach and small bowel. No free air or perforation was noted. Chest x-ray showed prominent pulmonary arteries suggestive of pulmonary hypertension, there was also evidence of COPD/emphysema. Patient was admitted, CODE STATUS was apparently verified earlier with the family, patient is DO NOT RESUSCITATE CODE STATUS, however as he was admitted to the ICU, patient was noted to have significant discomfort and he was placed on airvo with FiO2 of 55% and 50 L/m flow. In spite of this the patient was complaining of shortness of breath, and he was extremely restless and agitated. As soon as I evaluated the patient, I recommended Ativan to be given every 4 hours as needed, and recommended to have BiPAP at bedside to be used if necessary. In the meantime the patient is receiving his bronchodilators, and antibiotics in the form of Flagyl, and Rocephin. In the ER, patient apparently received vancomycin, Zosyn, and Levaquin. His antibiotics were ordered by Dr. Nuñez who is admitting physician P Review of Systems GEN.: Generalized weakness and fatigue. No fever no chills. EYES: No blurred vision. No diplopia. HEENT: Decreased hearing NECK: No neck pain. No limitation in range of motion. RESPIRATORY: Chronic shortness of breath, intermittent and occasional episodes of cough and wheezing. CARDIOVASCULAR: Denies any chest pain or palpitation, denies any syncope or GASTROINTESTINAL: As noted in HPI. GENITOURINARY: No dysuria frequency urgency or hematuria. MUSCULOSKELETAL: [place] aches and pains mostly joints pain. Hematologic: No clotting bleeding or bruising. Psychiatric: No symptoms of active depression Neurologic: No headache or blurred vision or dizziness. 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 UNABLE TO VERIFY AT TIME OF THIS ADMIT Last Myocardial Infarction Date:: 2016 History of Any Multi-Drug Resistant Organisms: None Reported Past Surgical History: Heart Catheterization, Heart Catheterization With Stent Additional Past Surgical History / Comment(s): stent RCA, CATARACTS SENAIT EYES Past Anesthesia/Blood Transfusion Reactions: No Reported Reaction Date of Last Stent Placement:: 2009 Past Psychological History: No Psychological Hx Reported Smoking Status: Former smoker Past Alcohol Use History: None Reported Additional Past Alcohol Use History / Comment(s): QUIT SMOKING 2009, SMOKED 1PPD Past Drug Use History: None Reported - Past Family History Brother(s) Family Medical History: Cancer Additional Family Medical History / Comment(s): lung CA Father Family Medical History: Myocardial Infarction ([place]) Mother Additional Family Medical History / Comment(s): CEREBRAL HEMORRAGE Medications and Allergies Home Medications Medication Instructions Recorded Confirmed Type Atenolol 12.5 mg PO DAILY 01/30/17 10/30/19 History Nitroglycerin Sl Tabs [Nitrostat] 0.4 mg SUBLINGUAL Q5M PRN 01/30/17 10/30/19 History Budesonide [Pulmicort] 0.5 mg INHALATION RT-BID 05/24/17 10/30/19 History Atorvastatin [Lipitor] 40 mg PO HS 11/21/17 10/30/19 History Albuterol Inhaler [Ventolin Hfa 1 - 2 puff INHALATION RT-Q6H PRN 06/28/18 10/30/19 History Inhaler] Calcium Carbonate [Calcium] 600 mg PO DAILY 07/21/18 10/30/19 History Cholecalciferol (Vitamin D3) 2,000 unit PO DAILY 07/21/18 10/30/19 History [Vitamin D3] Lisinopril [Zestril] 5 mg PO DAILY 07/21/18 10/30/19 History Acetaminophen Tab [Tylenol Tab] 650 mg PO Q4H PRN 09/05/18 10/30/19 History Aspirin 81 mg PO DAILY 09/05/18 10/30/19 History Tamsulosin [Flomax] 0.4 mg PO BID 10/09/18 10/30/19 History predniSONE 10 mg PO DAILY 11/25/18 10/30/19 History Albuterol Nebulized [Ventolin 2.5 mg INHALATION RT-QID PRN 10/30/19 10/30/19 History Nebulized] Formoterol Fumarate [Perforomist] 20 mcg INHALATION RT-BID 10/30/19 10/30/19 History Umeclidinium [place] [Incruse 1 puff INHALATION RT-DAILY 10/30/19 10/30/19 History Ellipta] Allergies Allergy/AdvReac Type Severity Reaction Status Date / Time No Known Allergies Allergy Verified 10/30/19 17:50 Physical Exam Vitals: Vital Signs Temp Pulse Pulse Resp BP BP Pulse Ox 10/31/19 11:27 100 10/31/19 10:00 73 21 106/56 99 10/31/19 09:00 66 22 109/50 88 L 10/31/19 08:00 98.4 F 75 24 106/45 90 L 10/31/19 07:36 85 L 10/31/19 07:00 76 32 H 82/43 92 L 10/31/19 06:30 63 18 82/43 100 10/31/19 06:00 60 12 108/60 100 10/31/19 05:30 73 16 108/60 100 10/31/19 05:19 99 10/31/19 05:00 66 12 103/44 100 10/31/19 04:30 70 14 103/44 99 10/31/19 04:00 98.9 F 81 24 82/47 92 L 10/31/19 03:30 66 12 92 L 10/31/19 03:00 70 11 L 104/51 100 10/31/19 02:30 77 26 H 98 10/31/19 02:16 80 95 10/31/19 02:00 85 22 93/53 96 10/31/19 01:30 73 27 H 100 10/31/19 01:00 74 18 93/53 99 10/31/19 00:45 73 17 95 10/31/19 00:30 81 23 94/44 95 10/31/19 00:01 99.0 F 74 20 100/44 98 10/30/19 23:31 71 18 99/51 97 10/30/19 23:00 77 23 95/54 97 10/30/19 22:50 74 27 H 93 L 10/30/19 22:40 75 12 121/52 94 L 10/30/19 22:30 68 15 121/52 83 L 10/30/19 22:20 77 25 H 121/52 90 L 10/30/19 22:10 75 23 121/52 100 10/30/19 22:00 81 15 121/52 82 L 10/30/19 21:59 69 10/30/19 21:50 71 28 H 121/52 97 10/30/19 21:42 72 10/30/19 21:40 74 24 121/52 82 L 10/30/19 21:30 98.2 F 76 20 121/52 90 L 10/30/19 21:20 73 26 H 98 10/30/19 21:10 79 39 H 84 L 10/30/19 21:00 80 28 H 100 10/30/19 20:50 83 28 H 98 10/30/19 20:43 120/79 10/30/19 20:23 96 10/30/19 20:00 99.0 F 80 23 90/50 88 L 10/30/19 19:10 75 20 96/60 88 L 10/30/19 19:06 96 10/30/19 19:00 76 22 92/50 87 L 10/30/19 18:51 20 92/41 10/30/19 17:51 97 10/30/19 17:49 99.0 F 80 23 90/50 84 L 10/30/19 17:16 76 18 98/41 97 10/30/19 17:05 78 18 94/31 94 L 10/30/19 16:53 58 L 18 94/37 94 L 10/30/19 16:07 54 L 10/30/19 15:48 54 L 10/30/19 14:50 97.4 F L 54 L 18 88/44 91 L Intake and Output 12/03/1510/31/19 10/31/19 22:59 06:59 14:59 Intake Total 650 1100 700 Output Total 200 220 140 Balance 450 880 560 Intake: Intake, IV Titration 650 1000 700 Amount Sodium Chloride 0.9% 1, 300 1000 500 000 ml @ 125 mls/hr IV . Q8H [facility] Rx#:[id number] Vancomycin 750 mg In 250 Sodium Chloride 0.9% 250 ml @ 125 mls/hr IVPB ONCE STA Rx#:[id number] cefTRIAXone 1 gm In 100 Sodium Chloride 0.9% 50 ml @ 100 mls/hr IVPB Q24HR [facility] Rx#:[id number] metroNIDAZOLE-NS PMX 500 100 mg In Saline 1 100ml.bag @ 100 mls/hr IVPB ONCE STA Rx#:[id number] metroNIDAZOLE-NS PMX 500 100 mg In Saline 1 100ml.bag @ 100 mls/hr IVPB Q8HR [facility] Rx#:[id number] Oral 100 Output: Urine 200 220 140 Other: Voiding Method Indwelling Catheter Indwelling Catheter Weight 38.555 kg 49.7 kg Physical Exam: Revealed an 84-year-old white male, frail looking, chronically ill, on airvo extremely restless and agitated. Head: Atraumatic, normocephalic. HEENT:[Neck is supple.] [No neck masses.] [No thyromegaly.] [No JVD.] PERRLA, EOMI, no icterus. Chest: [Extremely diminished breath sound bilaterally, no crackles nor rhonchi no wheezes. Symmetrical chest expansion noted..] Cardiac Exam: [Normal S1 and S2, no S3 gallop, no murmur.] Abdomen: [Soft, nontender, no megaly, no rebound, no guarding, normal bowel sounds.] Extremities: [No clubbing, no edema, no cyanosis.] Neurological Exam: Restless, agitated, however he seems to be alert oriented 3, no gross focal neurologic deficits. Psychiatric: Anxious mood, blunt affect, normal mental status examination. Lymphatics: No lymphadenopathy. Skin: No rashes. Musculoskeletal significant muscle wasting throughout, no limitation in range of motion Results - Laboratory Findings CBC and BMP: 10/31/19 03:58 10/31/19 03:58 PT/INR, D-dimer PT 10.0 sec (9.0-12.0) 10/30/19 15:14 INR 0.9 (<1.2) 10/30/19 15:14 Abnormal lab findings: Abnormal Labs 10/30/19 10/30/19 10/30/19 15:14 15:14 15:14 WBC 17.8 H RBC 3.21 L Hgb 9.6 L Hct 30.7 L MCHC Neutrophils # 16.7 H Lymphocytes # 0.4 L APTT Sodium 131 L Chloride 97 L BUN Glucose 112 H POC Glucose (mg/dL) Plasma Lactic Acid Rufus 6.7 H* Calcium Magnesium 2.4 H Total Protein 5.8 L Ur Specific [place] Urine Protein Urine Blood Ur Leukocyte Esterase Urine RBC Urine WBC Urine WBC Clumps Urine Bacteria Urine Mucus 10/30/19 10/30/19 10/30/19 15:14 15:14 19:35 WBC RBC Hgb Hct MCHC Neutrophils # Lymphocytes # APTT 19.5 L Sodium Chloride BUN Glucose POC Glucose (mg/dL) Plasma Lactic Acid Rufus 3.2 H* Calcium Magnesium Total Protein Ur Specific [place] Urine Protein 2+ H Urine Blood Moderate H Ur Leukocyte Esterase Large H Urine RBC 62 H Urine WBC >182 H Urine WBC Clumps Many H Urine Bacteria Moderate H Urine Mucus Rare H 10/30/19 10/30/19 10/31/19 20:43 23:36 01:27 WBC RBC Hgb Hct MCHC Neutrophils # Lymphocytes # APTT Sodium Chloride BUN Glucose POC Glucose (mg/dL) 142 H Plasma Lactic Acid Rufus 3.1 H* Calcium Magnesium Total Protein Ur Specific [place] 1.050 H Urine Protein Trace H Urine Blood Moderate H Ur Leukocyte Esterase Moderate H Urine RBC 13 H Urine WBC 24 H Urine WBC Clumps Urine Bacteria Rare H Urine Mucus Rare H 10/31/19 10/31/19 10/31/19 03:58 03:58 03:58 WBC 24.8 H RBC 2.88 L Hgb 8.2 L Hct 27.6 L MCHC 29.8 L Neutrophils # 23.7 H Lymphocytes # 0.2 L APTT Sodium 132 L Chloride BUN 22 H Glucose 125 H POC Glucose (mg/dL) Plasma Lactic Acid Rufus 2.7 H* Calcium 7.7 L Magnesium Total Protein Ur Specific [place] Urine Protein Urine Blood Ur Leukocyte Esterase Urine RBC Urine WBC Urine WBC Clumps Urine Bacteria Urine Mucus 10/31/19 07:38 WBC RBC Hgb Hct MCHC Neutrophils # Lymphocytes # APTT Sodium Chloride BUN Glucose POC Glucose (mg/dL) Plasma Lactic Acid Rufus 2.4 H* Calcium Magnesium Total Protein Ur Specific [place] Urine Protein Urine Blood Ur Leukocyte Esterase Urine RBC Urine WBC Urine WBC Clumps Urine Bacteria Urine Mucus - Diagnostic Findings Additional studies: CT of the abdomen and pelvis was reviewed, and report as noted in HPI. Assessment and Plan Assessment: Impression: 1 acute nonspecific colitis. Possibly ischemic colitis. 2 acute on chronic hypoxic respiratory failure secondary to severe COPD, and some component of exacerbation. 3 coronary artery disease and previous stent placement. 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 Recommendation: Continue present course of treatment including antibiotics. Bronchodilators. Consider using BiPAP if the patient shows worsening of pulmonary status with sedation. Obviously the patient is extremely restless and agitated, and I ordered Ativan to be given every 4 hours as needed, and to have BiPAP at bedside. I have a feeling the patient will benefit from BiPAP if he is cooperative with it, but at this point he would not be cooperative, he is barely tolerating airvo at high FiO2 and high flow. Confirmed CODE STATUS again with family all are in agreement to DO NOT RESUSCITATE CODE STATUS. Prognosis is extremely poor and guarded. We'll continue to follow Time with Patient: Greater than 30
[2019-10-31] MEDS: ENOXAPARIN 40 MG/0.4 ML SYRINGE SQ SCH (21:48)
[2019-10-31] MEDS: ATORVASTATIN 40 MG TAB PO SCH (22:29)
--- NOTE | 2019-10-31 23:22 | CONS ---
CONSULTATION DATE OF SERVICE: October 31, 2019. REQUESTING PHYSICIAN: Dr. Nicanor Desai REASON FOR CONSULTATION: Abdominal pain and diarrhea. HISTORY OF PRESENT ILLNESS: The patient is an 84-year-old pleasant white male who came into the emergency room yesterday with history of severe COPD, oxygen dependent at home as well as cardiomyopathy, came into the emergency room complaining of severe abdominal pain associated with nausea, vomiting, and diarrhea. He had at least 3 or 4 loose watery bowel movements yesterday. According to the family, he has been having intermittent lower abdominal pain for the last 2 weeks duration. However, yesterday the pain was extremely intense and hence came into the emergency room. He had a CT scan of the abdomen and pelvis done that showed severe wall thickening of the mid transverse colon all the way to the proximal sigmoid colon consistent with acute colitis. The patient was subsequently admitted. He was noted to have some hypertension and was admitted to the hospital to the intensive care unit for close observation. He was started on empiric Flagyl as well as Rocephin. This morning, he did not have any further episodes of diarrhea. He still continues to complain of abdominal pain. Never had these symptoms in the past. He denies any recent antibiotic use. No fever, chills, or night sweats. No rectal bleeding or melena. PAST MEDICAL HISTORY: Significant for coronary artery disease, congestive heart, advanced COPD on home O2, hypertension, coronary artery disease in the past, pneumonia in the past, history of pulmonary hypertension and shingles. PAST SURGICAL HISTORY: Bilateral cataract surgery, cardiac catheterization with stent placement. MEDICATIONS: At home, atenolol, Nitrostat, Pulmicort, albuterol, vitamin D, prednisone, Flomax, aspirin, Tylenol, albuterol, Ellipta. ALLERGIES: None. SOCIAL HISTORY: Chronic smoker. No alcohol use. FAMILY HISTORY: Unremarkable. Brother had lung cancer and the father had coronary artery disease. REVIEW OF SYSTEMS: Cardiopulmonary: Patient is very sedated and hence review of systems could not be obtained. All the history was obtained from the patient's family who was at the bedside. PHYSICAL EXAMINATION: He is sedated. VITAL SIGNS: Stable. Blood pressure is 122/86, pulse rate 71, temperature 98.4. HEENT examination unremarkable. Conjunctivae pink. Sclerae anicteric. Oral cavity no lesions. NECK: No JVD or lymph node enlargement. CHEST: Clear to auscultation. Decreased breath sounds bilaterally. ABDOMEN: Soft. There was diffuse mild tenderness throughout the abdomen, but no rebound or rigidity. EXTREMITIES: No pedal edema. SKIN no rashes. NEUROLOGIC: Easily arousable, but quite sleepy. LABS: Done at the time of admission to the hospital, WBC 24.8, hemoglobin 8.2, platelets normal. Basic metabolic panel, BUN 32, creatinine 1.04. Rest of the labs were normal. Lactic acid 3.1, which is normal at 1.4 today. Urinalysis showed positive nitrite and blood. IMPRESSION: 1. This is a patient who presented to the hospital with acute onset of severe lower abdominal pain followed by diarrhea that started yesterday morning. He had several episodes of nausea and vomiting but no fever, chills or night sweats or rectal bleeding. CT of the abdomen showed severe thickening of the colon involving the transverse colon and descending colon up to the proximal sigmoid colon. Clinical picture is quite consistent with ischemic colitis, but possibility of infectious colitis cannot be excluded. He is presently on broad-spectrum antibiotics. 2. Lactic acidosis and leukocytosis secondary to possible ischemic colitis/infectious colitis. 3. Advanced chronic obstructive pulmonary disease on home O2 and steroid dependent. 4. History of congestive heart failure with ejection fraction of 25%. 5. Right-sided heart failure. RECOMMENDATION: 1. Agree with broad-spectrum antibiotics. 2. Clear liquid diet. 3. Monitor labs closely. 4. Obtain stool cultures and C difficile toxin. 5. We will follow with you closely during this hospital stay. Thank you for this consultation. MMODL / IJN: [id number] /
[2019-11-01] MEDS: IPRATROPIUM-ALBUTEROL 3 ML NEB INHALATION SCH ×6 (00:45→20:50)
[2019-11-01] MEDS: HYDROmorphone 1 MG/ML 1 ML SYRINGE IVP PRN (01:41)
[2019-11-01] MEDS: SODIUM CHLORIDE 0.9% 1,000 ML IV SCH ×4 (01:45→20:48)
[2019-11-01 05:02] LABS: Basophils % (A) 0 %; Eosinophils % (A) 0 %; HCT 22.6 % (39.0-53.0); Hypochromasia Moderate; Lymphocytes # (A) 0.1 k/uL (1.0-4.8); Lymphocytes % (A) 1 %; MCH 29.3 pg (25.0-35.0); MCHC 30.9 g/dL (31.0-37.0); MCV 94.8 fL (80.0-100.0); Mean Platelet Volume 7.7; Monocytes # (A) 0.5 k/uL (0-1.0); Monocytes % (A) 3 %; Neutrophils # (A) 14.7 k/uL (1.3-7.7); Neutrophils % (A) 95 %; Platelet Count 306 k/uL (150-450); RBC 2.39 m/uL (4.30-5.90); WBC 15.4 k/uL (3.8-10.6)
[2019-11-01 05:12] LABS: African American GFR (CKD) >90 (>60 ml/min/1.73 sqM); Anion Gap 2 mmol/L; Blood Urea Nitrogen 23 mg/dL (9-20); Calcium 7.4 mg/dL (8.4-10.2); Carbon Dioxide 25 mmol/L (22-30); Chloride 107 mmol/L (98-107); Glucose 94 mg/dL (74-99); Non-African American GFR(CKD) 82 (>60 ml/min/1.73 sqM); Potassium 4.5 mmol/L (3.5-5.1); Sodium 134 mmol/L (137-145)
[2019-11-01] MEDS: methylPREDNISolone SOD SUCCI 40 MG/ML 1 ML VIAL IV SCH ×3 (05:41→22:36)
[2019-11-01] MEDS: ASPIRIN 81 MG PO SCH ×2 (08:42→08:44)
[2019-11-01] MEDS: TAMSULOSIN 0.4 MG CAP.ER.24H PO SCH ×2 (08:42→21:36)
[2019-11-01] MEDS: metroNIDAZOLE-NS PMX 500 MG in SALINE 1 100ML.BAG IVPB SCH ×3 (08:43→23:12)
[2019-11-01] MEDS: PANTOPRAZOLE 40 MG/10 ML VIAL IV SCH (08:44)
--- NOTE | 2019-11-01 08:44 | XR ---
EXAMINATION TYPE: XR chest 1V portable DATE OF EXAM: 11/01/2019 COMPARISON: 10/31/2019 HISTORY: Shortness of breath TECHNIQUE: Single frontal view of the chest is obtained. FINDINGS: Pulmonary hyperinflation biapical lucency representing underlying COPD. Short-term interva l development of a new right basilar opacity and trace right pleural effusion in comparison the prior of 10/31/2019. Trace left pleural effusion has also developed. Cardiomediastinal silhouette is within normal limits. IMPRESSION: New right basilar opacity and trace pleural effusions in comparison the prior of 10/31/20 19. Given the short-term interval development atelectasis is a primary consideration although develop ing pneumonia is possible.
[2019-11-01] MEDS: LORazepam 2 MG/ML INJ IV PRN ×3 (08:57→19:46)
[2019-11-01] MEDS ORDERED: VANCOMYCIN 750 MG in SODIUM CHLORIDE 0.9% 250 ML IVPB SCH (09:00)
[2019-11-01] MEDS: BUDESONIDE 1 MG/2 ML NEBU INHALATION SCH ×2 (09:10→20:50)
--- NOTE | 2019-11-01 11:06 | P.PN ---
Progress Note - Text Progress Note Date: 10/31/19 Chief Complaint: Abdominal pain Interval history: This is a pleasant 84-year-old patient of Dr. muir from [place]. Chronic stable medical conditions include congestive heart failure EF 25%, coronary artery disease with stent, hypertension, hyperlipidemia, secondary probably hypertension. History is obtained by patient's and grandson Doug at the bedside. baseline patient is able to walk a few steps , gets short of breath. Has good mentation. Patient is a small eater. Patient has end-stage COPD. Is now. 4 L of oxygen at home. Sometimes turned up to 5 liters. Patient did smoke heavily in the past. Today patient started having after breakfast, increasing abdominal pain diffuse. Did have a bowel movement. Normally has a bowel movement every day. Abdominal pain became rather severe. Some nausea was present. No fever no chills. Per the ER. Computed tomography scan of the ER showed colitis. Patient also requiring high flow oxygen. Patient blood pressures running low. Today-in the ICU. Family the bedside. Did tolerate some ice chips.. Did not require any pain medicines of the abdomen. Didn't require Ativan for anxiety. Patient is on Airvo at 50%. IV fluids with 125 mL. Review of systems cannot be done as patient rather tired Current medications reviewed in today's electronic records Physical examination: VITAL SIGNS: 98, 75, 14, 95/44 100% on high flow oxygen GENERAL: Laying in bed with Airvo-tired. EYES: Pupils equal. Conjunctiva pale HEENT: External appearance of nose and ears normal, oral cavity grossly normal. NECK: JVD unable to assess,; masses not palpable. HEART: First and second heart sounds are normal; no edema. LUNGS: Respiratory rate increased, decreased breath sounds ABDOMEN: Soft, minimal tenderness, no guarding or rigidity,, liver spleen not palpable, no masses palpable. PSYCH: Very tired. MUSCULAR skeletal: Diffuse fisting her muscles, loss of secretions fact, bony prominences, evidence of OA INVESTIGATIONS, reviewed in the clinical context: White count 24.8, hemoglobin 8.2, potassium 4.8, crit 1.04 Previous testing White count 7.8 hemoglobin 9.6 platelets 429 potassium 4.6 creatinine 1.03 lactic acid 6.7 UA positive for leukoesterase, WBC EKG tracing personally reviewed by me-normal sinus rhythm with some ST segment changes Chest x-ray film personally reviewed by me-hyperinflation, prominent pulmonary artery, no infiltrates Computed tomography scan of the abdomen-severe wall thickening of the colon extending from the mid transverse colon through proximal sigmoid colon Assessment: -Acute ischemic colitis, with typical location from the transverse colon to the proximal descending colon -Acute COPD exacerbation and an ex-smoker, slow to respond -Acute on chronic hypoxic respiratory failure from above, slow to respond -Coronary artery disease with a prior history of stent -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 Per grossly remains guarded. We'll advance to clear liquids. Continue with bronchodilators, IV Solu-Medrol. On IV ceftriaxone. See how the patient comes along.
[2019-11-01] MEDS: HYDROmorphone 0.5 MG/0.5 ML SYRINGE IVP PRN ×3 (12:29→22:33)
--- NOTE | 2019-11-01 12:40 | P.PN ---
Subjective Progress Note Date: 11/01/19 Principal diagnosis: Abdominal pain, possible ischemic colitis. This is an 84-year-old white male with history of severe COPD, gold stage IV, oxygen dependent for many years, known history of cardiomyopathy and LV dysfunction with ejection fraction of 25%. History of coronary artery disease, hypertension, hyperlipidemia, normally sees Dr. Barr on outpatient basis for his underlying COPD. Patient was brought into the ER last night with diffuse abdominal pain of one day duration. Pain was severe and associated with some nausea, but no vomiting. No fever no chills. No melena and no hematemesis. CT of the abdomen and pelvis was consistent with possible colitis, it showed severe wall thickening of the colon extending from the mid transverse colon through the proximal sigmoid colon compatible with colitis. There is also evidence of mild reactive ileus of the stomach and small bowel. No free air or perforation was noted. Chest x-ray showed prominent pulmonary arteries suggestive of pulmonary hypertension, there was also evidence of COPD/emphysema. Patient was admitted, CODE STATUS was apparently verified earlier with the family, patient is DO NOT RESUSCITATE CODE STATUS, however as he was admitted to the ICU, patient was noted to have significant discomfort and he was placed on airvo with FiO2 of 55% and 50 L/m flow. In spite of this the patient was complaining of shortness of breath, and he was extremely restless and agitated. As soon as I evaluated the patient, I recommended Ativan to be given every 4 hours as needed, and recommended to have BiPAP at bedside to be used if necessary. In the meantime the patient is receiving his bronchodilators, and antibiotics in the form of Flagyl, and Rocephin. In the ER, patient apparently received vancomycin, Zosyn, and Levaquin. His antibiotics were ordered by Dr. Nuñez who is admitting physician . Patient was reevaluated today on 11/01/2019, remains in the ICU, he is presently on airvo at 50% FiO2 and 55 L/m flow. Received Ativan earlier, he seems to be quite relaxed, although he was extremely agitated earlier according to the family. Patient seems to be very comfortable, in no distress. His O2 saturation is 100%, hence I have recommended cutting down the FiO2 and titrate accordingly. WBC count today is 15.4 hemoglobin is 7 and electrolytes are normal renal profile is normal lactic acid is normal, chest x-ray showed right basilar atelectasis and small tiny effusion. Doubt pneumonia. Objective - Vital Signs Vital signs: Vital Signs Temp 98.6 F 11/01/19 12:00 Pulse 92 11/01/19 12:00 Resp 13 11/01/19 12:00 BP 114/78 11/01/19 12:00 Pulse Ox 100 11/01/19 12:00 Intake & Output 10/31/19 11/01/19 11/01/19 18:59 06:59 18:59 Intake Total 1800 1500 1050 Output Total 550 655 205 Balance 1250 845 845 Weight 50.4 kg Intake: IV 1375 750 Sodium Chloride 0.9% 1, 1375 750 000 ml @ 125 mls/hr IV . Q8H SD Rx#:[id number] Intake, IV Titration 1800 125 200 Amount Sodium Chloride 0.9% 1, 1500 125 000 ml @ 125 mls/hr IV . Q8H SD Rx#:[id number] cefTRIAXone 1 gm In 100 100 Sodium Chloride 0.9% 50 ml @ 100 mls/hr IVPB Q24HR SD Rx#:[id number] metroNIDAZOLE-NS PMX 500 100 mg In Saline 1 100ml.bag @ 100 mls/hr IVPB ONCE STA Rx#:[id number] metroNIDAZOLE-NS PMX 500 100 100 mg In Saline 1 100ml.bag @ 100 mls/hr IVPB Q8HR SD Rx#:[id number] Oral 100 Output: Urine 550 655 205 Other: Voiding Method Indwelling Catheter Indwelling Catheter Indwelling Catheter - Exam Physical Exam: Revealed an 84-year-old white male, frail looking, chronically ill, on airvo very comfortable, and in no distress.. Head: Atraumatic, normocephalic. HEENT:[Neck is supple.] [No neck masses.] [No thyromegaly.] [No JVD.] PERRLA, EOMI, no icterus. Chest: [Extremely diminished breath sound bilaterally, no crackles nor rhonchi no wheezes. Symmetrical chest expansion noted..] Cardiac Exam: [Normal S1 and S2, no S3 gallop, no murmur.] Abdomen: [Soft, nontender, no megaly, no rebound, no guarding, normal bowel sounds.] Extremities: [No clubbing, no edema, no cyanosis.] Neurological Exam: Alert and oriented 3, no gross focal neurologic deficits. Psychiatric: Normal mood affect and normal mental status examination.. Lymphatics: No lymphadenopathy. Skin: No rashes. Musculoskeletal significant muscle wasting throughout, no limitation in range of motion - Labs CBC & Chem 7: 11/01/19 04:39 12 04:39 Labs: Abnormal Lab Results - Last 24 Hours (Table) 11/01/19 11/01/19 Range/Units 04:39 04:39 WBC 15.4 H (3.8-10.6) k/uL RBC 2.39 L (4.30-5.90) m/uL Hgb 7.0 L (13.0-17.5) gm/dL Hct 22.6 L (39.0-53.0) % MCHC 30.9 L (31.0-37.0) g/dL Neutrophils # 14.7 H (1.3-7.7) k/uL Lymphocytes # 0.1 L (1.0-4.8) k/uL Sodium 134 L (137-145) mmol/L BUN 23 H (9-20) mg/dL Calcium 7.4 L (8.4-10.2) mg/dL Microbiology - Last 24 Hours (Table) 10/30/19 15:14 Urine Culture - Preliminary Urine,Voided Gram Neg Bacilli 10/30/19 15:14 Blood Culture - Preliminary Blood No Growth after 24 hours Assessment and Plan Assessment: Impression: 1 acute nonspecific colitis. Possibly ischemic colitis. 2 acute on chronic hypoxic respiratory failure secondary to severe COPD, and so me component of exacerbation. 3 coronary artery disease and previous stent placement. 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 Recommendation: Continue empiric antibiotics. Continue bronchodilators. Continue IV Solu-Medrol. Continue to titrate FiO2 as tolerated and maintain O2 saturation above 90%. Continue Ativan as needed Use BiPAP if necessary. Continue GI and DVT prophylaxis. We'll likely transfer out of the ICU in the next 24 hours. We'll continue to follow. Had a long discussion regarding his condition with family at bedside. Long-term prognosis is poor considering the severity of his COPD. CODE STATUS remains DO NOT RESUSCITATE. Time with Patient: Less than 30
--- NOTE | 2019-11-01 17:05 | PN ---
PROGRESS NOTE DATE OF DICTATION: 11/01/2019 Patient is an 84-year-old white male admitted to the hospital with acute onset of severe lower abdominal pain followed by nausea, vomiting and diarrhea. CT scan showed thickening of the transverse colon, descending colon up to proximal sigmoid colon consistent with acute colitis. Patient was started on broad-spectrum antibiotics for possible infectious colitis versus ischemic colitis. He also has history of advanced COPD, oxygen-dependent and steroid-dependent at home. Today as per the nursing staff patient is doing much better; he did not have any further episodes of abdominal pain or diarrhea. He was started on a clear liquid diet, tolerating well. No bleeding noted. He remains on broad-spectrum antibiotics with Flagyl and Rocephin. PHYSICAL EXAMINATION: He appears comfortable. He is quite sleepy. VITAL SIGNS: Stable. Blood pressure is 112/60, pulse rate 114, temperature 98.8. HEENT examination unremarkable. Conjunctivae pink. Sclerae anicteric. Oral cavity no lesions. NECK: No JVD or lymph node enlargement. CHEST: Clear to auscultation. HEART: Regular rate and rhythm. ABDOMEN: Soft. It was non-tender, non-distended. Bowel sounds are positive. No organomegaly. EXTREMITIES: No pedal edema. NEUROLOGIC: He is quite sleepy. LABS: WBC 15.4, hemoglobin 7, platelets 306. Basic metabolic panel is within normal limits. Lactic acid now normalized to 1.4. IMPRESSION: 1. Acute onset of lower abdominal pain associated with nausea, vomiting and diarrhea and CT scan showing severe colitis involving the descending, sigmoid colon and proximal transverse colon consistent with acute ischemic colitis versus infectious colitis. Presently on broad-spectrum antibiotics with Flagyl and Rocephin and patient gradually improving. Stool studies for C difficile toxin were negative. Cultures are still pending. 2. Advance chronic obstructive pulmonary disease, on home oxygen. At present he has some COPD exacerbation. 3. Chronic kidney disease, stage II. 4. Severe right-sided pulmonary hypertension. RECOMMENDATIONS: 1. Continue with antibiotics. 2. Continue with clear liquids and advance to a full liquid diet. 3. Continue broad-spectrum antibiotics. We will follow with you closely during his hospital stay. Thank you for this consultation. MMODL / IJN: [id number] /
[2019-11-01] MEDS: ATORVASTATIN 40 MG TAB PO SCH (20:48)
[2019-11-01] MEDS: ENOXAPARIN 40 MG/0.4 ML SYRINGE SQ SCH (20:48)
[2019-11-01] MEDS: NICOTINE 14MG/24HR PATCH TRANSDERM SCH (22:39)
[2019-11-02] MEDS: IPRATROPIUM-ALBUTEROL 3 ML NEB INHALATION SCH ×7 (00:22→23:52)
[2019-11-02] MEDS: LORazepam 2 MG/ML INJ IV PRN ×4 (02:51→20:16)
[2019-11-02] MEDS: methylPREDNISolone SOD SUCCI 40 MG/ML 1 ML VIAL IV SCH ×3 (05:22→20:28)
[2019-11-02] MEDS: HYDROmorphone 0.5 MG/0.5 ML SYRINGE IVP PRN ×4 (05:30→23:20)
--- NOTE | 2019-11-02 06:28 | XR ---
EXAMINATION TYPE: XR chest 1V portable DATE OF EXAM: 11/02/2019 HISTORY: SOB . REFERENCE: Previous study dated 11/01/2019. FINDINGS: There is worsening bibasilar airspace disease. This is likely a combination of pleural flui d and infiltrate. The heart is not enlarged. IMPRESSION: WORSENING OPACITY, BOTH LUNG BASES.
[2019-11-02 06:58] LABS: Basophils % (A) 0 %; Eosinophils % (A) 0 %; HCT 23.9 % (39.0-53.0); HGB 7.5 gm/dL (13.0-17.5); Hypochromasia Slight; Lymphocytes # (A) 0.1 k/uL (1.0-4.8); Lymphocytes % (A) 1 %; MCH 29.8 pg (25.0-35.0); MCHC 31.4 g/dL (31.0-37.0); MCV 94.7 fL (80.0-100.0); Mean Platelet Volume 7.1; Monocytes # (A) 0.5 k/uL (0-1.0); Monocytes % (A) 3 %; Neutrophils # (A) 13.1 k/uL (1.3-7.7); Neutrophils % (A) 95 %; Platelet Count 293 k/uL (150-450); RBC 2.52 m/uL (4.30-5.90); RDW 14.5 % (11.5-15.5); WBC 13.8 k/uL (3.8-10.6)
[2019-11-02 07:23] LABS: African American GFR (CKD) >90 (>60 ml/min/1.73 sqM); Anion Gap 2 mmol/L; Blood Urea Nitrogen 27 mg/dL (9-20); Calcium 7.6 mg/dL (8.4-10.2); Carbon Dioxide 25 mmol/L (22-30); Chloride 112 mmol/L (98-107); Glucose 89 mg/dL (74-99); Non-African American GFR(CKD) 86 (>60 ml/min/1.73 sqM); Potassium 4.5 mmol/L (3.5-5.1); Sodium 139 mmol/L (137-145)
[2019-11-02] MEDS: BUDESONIDE 1 MG/2 ML NEBU INHALATION SCH ×2 (08:20→20:04)
[2019-11-02] MEDS: metroNIDAZOLE-NS PMX 500 MG in SALINE 1 100ML.BAG IVPB SCH ×3 (08:24→23:20)
[2019-11-02] MEDS: NICOTINE 14MG/24HR PATCH TRANSDERM SCH (08:25)
[2019-11-02] MEDS: PANTOPRAZOLE 40 MG/10 ML VIAL IV SCH (08:25)
[2019-11-02] MEDS: TAMSULOSIN 0.4 MG CAP.ER.24H PO SCH ×2 (08:36→20:28)
[2019-11-02] MEDS ORDERED: FUROSEMIDE 10 MG/ML 2 ML VIAL IV ONE (09:32)
--- NOTE | 2019-11-02 11:05 | PN ---
PROGRESS NOTE DATE OF SERVICE: November 02, 2019 Patient is an 84-year-old pleasant white male admitted to the hospital with an acute onset of lower abdominal pain followed by diarrhea of [address] scan showed evidence of left-sided colitis, possible ischemic colitis versus infectious colitis. Patient on broad-spectrum antibiotics, doing well. Since being in the ICU, no further episodes of bleeding. He remains somewhat sedated. No acute events overnight. PHYSICAL EXAMINATION: Appears comfortable. No apparent distress. Remains on O2. VITAL SIGNS: Stable. Blood pressure is 114/78, pulse rate 92, and temperature 98.6. HEENT examination unremarkable. Conjunctivae pink. Sclerae anicteric. Oral cavity no lesions. NECK: No JVD or lymph node enlargement. CHEST: Decreased breath sounds. HEART: Regular rate and rhythm. ABDOMEN: Soft, nontender. Bowel sounds are positive. EXTREMITIES: No pedal edema. NEURO: He is awake, responding to simple questions. LABS: From today WBC 13.8, hemoglobin 7.5, platelets normal. Basic metabolic panel is within normal limits. IMPRESSION: 1. Acute colitis, possibly ischemic versus infectious etiology. The patient remains on IV antibiotics, doing well. No further episodes of diarrhea. 2. Anemia with stable hemoglobin, but clinically no evidence of active bleeding. 3. Advanced chronic obstructive pulmonary disease on supplemental oxygen. 4. Mild leukocytosis. RECOMMENDATIONS: 1. Continue with antibiotics. 2. Advance to full liquid diet. 3. Monitor CBC daily. 4. We will follow with you. Thank you for this consultation. MMODL / IJN: [id number] /
--- NOTE | 2019-11-02 12:41 | P.PN ---
Subjective Progress Note Date: 11/02/19 Principal diagnosis: Abdominal pain, possible ischemic colitis. This is an 84-year-old white male with history of severe COPD, gold stage IV, oxygen dependent for many years, known history of cardiomyopathy and LV dysfunction with ejection fraction of 25%. History of coronary artery disease, hypertension, hyperlipidemia, normally sees Dr. Barr on outpatient basis for his underlying COPD. Patient was brought into the ER last night with diffuse abdominal pain of one day duration. Pain was severe and associated with some nausea, but no vomiting. No fever no chills. No melena and no hematemesis. CT of the abdomen and pelvis was consistent with possible colitis, it showed severe wall thickening of the colon extending from the mid transverse colon through the proximal sigmoid colon compatible with colitis. There is also evidence of mild reactive ileus of the stomach and small bowel. No free air or perforation was noted. Chest x-ray showed prominent pulmonary arteries suggestive of pulmonary hypertension, there was also evidence of COPD/emphysema. Patient was admitted, CODE STATUS was apparently verified earlier with the family, patient is DO NOT RESUSCITATE CODE STATUS, however as he was admitted to the ICU, patient was noted to have significant discomfort and he was placed on airvo with FiO2 of 55% and 50 L/m flow. In spite of this the patient was complaining of shortness of breath, and he was extremely restless and agitated. As soon as I evaluated the patient, I recommended Ativan to be given every 4 hours as needed, and recommended to have BiPAP at bedside to be used if necessary. In the meantime the patient is receiving his bronchodilators, and antibiotics in the form of Flagyl, and Rocephin. In the ER, patient apparently received vancomycin, Zosyn, and Levaquin. His antibiotics were ordered by Dr. Nuñez who is admitting physician . Patient was reevaluated today on 11/01/2019, remains in the ICU, he is presently on airvo at 50% FiO2 and 55 L/m flow. Received Ativan earlier, he seems to be quite relaxed, although he was extremely agitated earlier according to the family. Patient seems to be very comfortable, in no distress. His O2 saturation is 100%, hence I have recommended cutting down the FiO2 and titrate accordingly. WBC count today is 15.4 hemoglobin is 7 and electrolytes are normal renal profile is normal lactic acid is normal, chest x-ray showed right basilar atelectasis and small tiny effusion. Doubt pneumonia. Reevaluated today in the ICU on 11/02/2019, patient remains intermittently agitated requiring Ativan, however he is down on airvo to 35% FiO2, and 35 L/m. Chest x-ray is showing mostly atelectatic changes at the bases and patchy opacities, I recommended a trial of BiPAP on this patient for better aeration of the bases of his lungs. Patient is calm, however according to the family he is intermittently waking up and gets extremely agitated. And responds well to Ativan. Labs today showed WBC count of 13.8 hemoglobin is 7.5. Electrolytes and renal profile are normal. Lactic acid normalized to 1.4. Objective - Vital Signs Vital signs: Vital Signs Temp 98 F 11/02/19 08:00 Pulse 92 11/02/19 12:36 Resp 14 11/02/19 11:00 BP 115/67 11/02/19 11:00 Pulse Ox 98 11/02/19 11:00 Intake & Output 11/01/19 11/02/19 11/02/19 18:59 06:59 18:59 Intake Total 1900 1500 675 Output Total 390 445 535 Balance 1510 1055 140 Weight 51.3 kg Intake: IV 1500 1500 675 Sodium Chloride 0.9% 1, 1500 1500 525 000 ml @ 125 mls/hr IV . Q8H [facility] Rx#:[id number] cefTRIAXone 1 gm In 50 Sodium Chloride 0.9% 50 ml @ 100 mls/hr IVPB Q24HR [facility] Rx#:[id number] metroNIDAZOLE-NS PMX 500 100 mg In Saline 1 100ml.bag @ 100 mls/hr IVPB Q8HR [facility] Rx#:[id number] Intake, IV Titration 300 Amount cefTRIAXone 1 gm In 100 Sodium Chloride 0.9% 50 ml @ 100 mls/hr IVPB Q24HR [facility] Rx#:[id number] metroNIDAZOLE-NS PMX 500 200 mg In Saline 1 100ml.bag @ 100 mls/hr IVPB Q8HR [facility] Rx#:[id number] Oral 100 Output: Urine 390 445 535 Other: Voiding Method Indwelling Catheter Indwelling Catheter - Exam Physical Exam: Revealed an 84-year-old white male on airvo very comfortable, and in no distress.. Head: Atraumatic, normocephalic. HEENT:[Neck is supple.] [No neck masses.] [No thyromegaly.] [No JVD.] PERRLA, EOMI, no icterus. Chest: [Extremely diminished breath sound bilaterally, no crackles nor rhonchi no wheezes. Symmetrical chest expansion noted..] Cardiac Exam: [Normal S1 and S2, no S3 gallop, no murmur.] Abdomen: [Soft, nontender, no megaly, no rebound, no guarding, normal bowel sounds.] Extremities: [No clubbing, no edema, no cyanosis.] Neurological Exam: Alert and oriented 3, no gross focal neurologic deficits. Psychiatric: Normal mood affect and normal mental status examination.. Lymphatics: No lymphadenopathy. Skin: No rashes. Musculoskeletal significant muscle wasting throughout, no limitation in range of motion - Labs CBC & Chem 7: 11/02/19 06:44 11/02/19 06:44 Labs: Abnormal Lab Results - Last 24 Hours (Table) 11/02/19 11/02/19 Range/Units 06:44 06:44 WBC 13.8 H (3.8-10.6) k/uL RBC 2.52 L (4.30-5.90) m/uL Hgb 7.5 L (13.0-17.5) gm/dL Hct 23.9 L (39.0-53.0) % Neutrophils # 13.1 H (1.3-7.7) k/uL Lymphocytes # 0.1 L (1.0-4.8) k/uL Chloride 112 H (98-107) mmol/L BUN 27 H (9-20) mg/dL Calcium 7.6 L (8.4-10.2) mg/dL Microbiology - Last 24 Hours (Table) 10/30/19 15:14 Blood Culture - Preliminary Blood No Growth after 48 hours Assessment and Plan Assessment: Impression: 1 acute nonspecific colitis. Possibly ischemic colitis. 2 acute on chronic hypoxic respiratory failure secondary to severe COPD, and some component of exacerbation. 3 coronary artery disease and previous stent placement. 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 Recommendation: Continue empiric antibiotics. Continue bronchodilators. Continue IV Solu-Medrol. Trial of BiPAP which IPap of 12 and EPAP of 4, and 28% FiO2. Continue Ativan as needed Continue GI and DVT prophylaxis. Had a long discussion regarding his condition with family at bedside. Long-term prognosis is poor considering the severity of his COPD. CODE STATUS remains DO NOT RESUSCITATE. Time with Patient: Less than 30
[2019-11-02] MEDS: SODIUM CHLORIDE 0.9% 1,000 ML IV SCH (19:53)
[2019-11-02] MEDS: ATORVASTATIN 40 MG TAB PO SCH (20:28)
[2019-11-02] MEDS: ENOXAPARIN 40 MG/0.4 ML SYRINGE SQ SCH (20:28)
--- NOTE | 2019-11-02 22:56 | P.PN ---
Subjective Progress Note Date: 11/01/19 Principal diagnosis: Acute ischemic colitis This is a pleasant 84-year-old patient of Dr. muir from [place]. Chronic stable medical conditions include congestive heart failure EF 25%, coronary artery disease with stent, hypertension, hyperlipidemia, secondary probably hy pertension. History is obtained by patient's and grandson Doug at the bedside. baseline patient is able to walk a few steps , gets short of breath. Has good mentation. Patient is a small eater. Patient has end-stage COPD. Is now. 4 L of oxygen at home. Sometimes turned up to 5 liters. Patient did smoke heavily in the past. Today patient started having after breakfast, increasing abdominal pain diffuse. Did have a bowel movement. Normally has a bowel movement every day. Abdominal pain became rather severe. Some nausea was present. No fever no chills. Per the ER. Computed tomography scan of the ER showed colitis. Patient also requiring high flow oxygen. Patient blood pressures running low. 10/31/2019 the ICU. Family the bedside. Did tolerate some ice chips.. Did not require any pain medicines of the abdomen. Didn't require Ativan for anxiety. Patient is on Airvo at 50%. IV fluids with 125 mL. 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 Currently on airvo with 50% FiO2. Patient is more awake and oriented today. Family is at bedside. Chest x-ray showed right basilar atelectasis and small effusion. WBC 15.4 and hemoglobin 7.0. Lactic acidosis resolved. No nausea vomiting or abdominal pain or diarrhea. Patient has been afebrile. Patient remained on antibiotics in the form of ceftriaxone. Review of systems cannot be done as patient rather tired Current medications reviewed in today's electronic records Objective - Vital Signs Vital signs: Vital Signs Temp 98.6 F 11/01/19 12:00 Pulse 81 11/01/19 12:50 Resp 13 11/01/19 12:00 BP 114/78 11/01/19 12:00 Pulse Ox 100 11/01/19 12:00 Intake & Output 10/31/19 11/01/19 11/01/19 18:59 06:59 18:59 Intake Total 1800 1500 1050 Output Total 550 655 205 Balance 1250 845 845 Weight 50.4 kg Intake: IV 1375 750 Sodium Chloride 0.9% 1, 1375 750 000 ml @ 125 mls/hr IV . Q8H [facility] Rx#:[id number] Intake, IV Titration 1800 125 200 Amount Sodium Chloride 0.9% 1, 1500 125 000 ml @ 125 mls/hr IV . Q8H [facility] Rx#:[id number] cefTRIAXone 1 gm In 100 100 Sodium Chloride 0.9% 50 ml @ 100 mls/hr IVPB Q24HR [facility] Rx#:[id number] metroNIDAZOLE-NS PMX 500 100 mg In Saline 1 100ml.bag @ 100 mls/hr IVPB [facility] Rx#:[id number] metroNIDAZOLE-NS PMX 500 100 100 mg In Saline 1 100ml.bag @ 100 mls/hr IVPB Q8HR [facility] Rx#:[id number] Oral 100 Output: Urine 550 655 205 Other: Voiding Method Indwelling Catheter Indwelling Catheter Indwelling Catheter - Exam GENERAL: Laying in bed with Airvo-tired. EYES: Pupils equal. Conjunctiva pale HEENT: External appearance of nose and ears normal, oral cavity grossly normal. NECK: JVD unable to assess,; masses not palpable. HEART: First and second heart sounds are normal; no edema. LUNGS: Respiratory rate increased, decreased breath sounds ABDOMEN: Soft, minimal tenderness, no guarding or rigidity,, liver spleen not palpable, no masses palpable. PSYCH: Very tired. MUSCULAR skeletal: Diffuse fisting her muscles, loss of secretions fact, bony prominences, evidence of OA INVESTIGATIONS, reviewed in the clinical context: White count 24.8, hemoglobin 8.2, potassium 4.8, crit 1.04 Previous testing White count 7.8 hemoglobin 9.6 platelets 429 potassium 4.6 creatinine 1.03 lactic acid 6.7 UA positive for leukoesterase, WBC EKG tracing personally reviewed by me-normal sinus rhythm with some ST segment changes Chest x-ray film personally reviewed by me-hyperinflation, prominent pulmonary artery, no infiltrates Computed tomography scan of the abdomen-severe wall thickening of the colon extending from the mid transverse colon through proximal sigmoid colon - Labs CBC & Chem 7: 11/02/19 06:44 11/02/19 06:44 Labs: Abnormal Lab Results - Last 24 Hours (Table) 11/01/19 11/01/19 Range/Units 04:39 04:39 WBC 15.4 H (3.8-10.6) k/uL RBC 2.39 L (4.30-5.90) m/uL Hgb 7.0 L (13.0-17.5) gm/dL Hct 22.6 L (39.0-53.0) % MCHC 30.9 L (31.0-37.0) g/dL Neutrophils # 14.7 H (1.3-7.7) k/uL Lymphocytes # 0.1 L (1.0-4.8) k/uL Sodium 134 L (137-145) mmol/L BUN 23 H (9-20) mg/dL Calcium 7.4 L (8.4-10.2) mg/dL Microbiology - Last 24 Hours (Table) 10/30/19 15:14 Urine Culture - Preliminary Urine,Voided Gram Neg Bacilli 10/30/19 15:14 Blood Culture - Preliminary Blood No Growth after 24 hours Assessment and Plan Assessment: -Acute ischemic colitis, with typical location from the transverse colon to the proximal descending colon -Acute COPD exacerbation and an ex-smoker, slow to respond. Patient is on oxygen 4 L nausea cannula. 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 Per grossly remains guarded. With clear liquids and advance as tolerated. Increase activity.. Continue with bronchodilators, IV Solu-Medrol. On IV ceftriaxone. Patient's condition remained guarded. Time with Patient: Greater than 30
--- NOTE | 2019-11-02 22:58 | P.PN ---
Subjective Progress Note Date: 11/02/19 Principal diagnosis: Acute ischemic colitis This is a pleasant 84-year-old patient of Dr. muir from [place]. Chronic stable medical conditions include congestive heart failure EF 25%, coronary artery disease with stent, hypertension, hyperlipidemia, secondary probably hy pertension. History is obtained by patient's and grandson Doug at the bedside. baseline patient is able to walk a few steps , gets short of breath. Has good mentation. Patient is a small eater. Patient has end-stage COPD. Is now. 4 L of oxygen at home. Sometimes turned up to 5 liters. Patient did smoke heavily in the past. Today patient started having after breakfast, increasing abdominal pain diffuse. Did have a bowel movement. Normally has a bowel movement every day. Abdominal pain became rather severe. Some nausea was present. No fever no chills. Per the ER. Computed tomography scan of the ER showed colitis. Patient also requiring high flow oxygen. Patient blood pressures running low. 10/31/2019 the ICU. Family the bedside. Did tolerate some ice chips.. Did not require any pain medicines of the abdomen. Didn't require Ativan for anxiety. Patient is on Airvo at 50%. IV fluids with 125 mL. 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 Currently on airvo with 50% FiO2. Patient is more awake and oriented today. Family is at bedside. Chest x-ray showed right basilar atelectasis and small effusion. WBC 15.4 and hemoglobin 7.0. Lactic acidosis resolved. No nausea vomiting or abdominal pain or diarrhea. Patient has been afebrile. Patient remained on antibiotics in the form of ceftriaxone. 11/02/2019 Patient is currently on BiPAP. Patient was agitated this morning when he woke up. Patient was given a dose of Ativan. Otherwise leukocytosis improved to 13.8 and hemoglobin is 7.5. Urine culture showed gram-negative bacilli. Currently patient is on ceftriaxone. Patient is afebrile. No nausea vomiting or abdominal pain. Review of systems cannot be done as patient rather tired Current medications reviewed in today's electronic records Objective - Vital Signs Vital signs: Vital Signs Temp 98.1 F 11/02/19 20:00 Pulse 101 H 11/02/19 22:00 Resp 11 L 11/02/19 22:00 BP 118/59 11/02/19 22:00 Pulse Ox 100 11/02/19 22:00 Intake & Output 11/02/19 11/02/19 11/03/19 06:59 18:59 06:59 Intake Total 1500 1200 300 Output Total 445 1580 145 Balance 1055 -380 155 Weight 51.3 kg 51.3 kg Intake: IV 1500 1200 300 Sodium Chloride 0.9% 1, 1500 1050 75 000 ml @ 125 mls/hr IV . Q8H [facility] Rx#:[id number] Sodium Chloride 0.9% 1, 225 000 ml @ 75 mls/hr IV . [id number] [facility] Rx#:[id number] cefTRIAXone 1 gm In 50 Sodium Chloride 0.9% 50 ml @ 100 mls/hr IVPB Q24HR [facility] Rx#:[id number] metroNIDAZOLE-NS PMX 500 100 mg In Saline 1 100ml.bag @ 100 mls/hr IVPB Q8HR [facility] Rx#:[id number] Output: Urine 445 1580 145 Other: Voiding Method Indwelling Catheter Indwelling Catheter Indwelling Catheter - Exam GENERAL: Laying in bed with Airvo-tired. EYES: Pupils equal. Conjunctiva pale HEENT: External appearance of nose and ears normal, oral cavity grossly normal. NECK: JVD unable to assess,; masses not palpable. HEART: First and second heart sounds are normal; no edema. LUNGS: Respiratory rate increased, decreased breath sounds ABDOMEN: Soft, minimal tenderness, no guarding or rigidity,, liver spleen not palpable, no masses palpable. PSYCH: Very tired. MUSCULAR skeletal: Diffuse fisting her muscles, loss of secretions fact, bony prominences, evidence of OA INVESTIGATIONS, reviewed in the clinical context: White count 24.8, hemoglobin 8.2, potassium 4.8, crit 1.04 Previous testing White count 7.8 hemoglobin 9.6 platelets 429 potassium 4.6 creatinine 1.03 lactic acid 6.7 UA positive for leukoesterase, WBC EKG tracing personally reviewed by me-normal sinus rhythm with some ST segment changes Chest x-ray film personally reviewed by me-hyperinflation, prominent pulmonary artery, no infiltrates Computed tomography scan of the abdomen-severe wall thickening of the colon extending from the mid transverse colon through proximal sigmoid colon - Labs CBC & Chem 7: 11/02/19 06:44 12/07/19 06:44 Labs: Abnormal Lab Results - Last 24 Hours (Table) 11/02/19 11/02/19 Range/Units 06:44 06:44 WBC 13.8 H (3.8-10.6) k/uL RBC 2.52 L (4.30-5.90) m/uL Hgb 7.5 L (13.0-17.5) gm/dL Hct 23.9 L (39.0-53.0) % Neutrophils # 13.1 H (1.3-7.7) k/uL Lymphocytes # 0.1 L (1.0-4.8) k/uL Chloride 112 H (98-107) mmol/L BUN 27 H (9-20) mg/dL Calcium 7.6 L (8.4-10.2) mg/dL Microbiology - Last 24 Hours (Table) 10/30/19 15:14 Blood Culture - Preliminary Blood No Growth after 72 hours Assessment and Plan Assessment: -Acute ischemic colitis, with typical location from the transverse colon to the proximal descending colon -Acute COPD exacerbation and an ex-smoker, slow to respond. Patient is on oxygen 4 L nausea cannula. 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 Per grossly remains guarded. With clear liquids and advance as tolerated. Increase activity.. Continue with bronchodilators, IV Solu-Medrol. On IV ceftriaxone. Follow up with final urine culture report. Patient's condition remained guarded. Time with Patient: Greater than 30
[2019-11-03] MEDS: IPRATROPIUM-ALBUTEROL 3 ML NEB INHALATION SCH ×6 (03:35→23:50)
[2019-11-03] MEDS: LORazepam 2 MG/ML INJ IV PRN ×4 (04:25→19:26)
[2019-11-03] MEDS: methylPREDNISolone SOD SUCCI 40 MG/ML 1 ML VIAL IV SCH ×2 (04:57→12:59)
[2019-11-03 05:07] LABS: Basophils % (A) 0 %; Eosinophils % (A) 0 %; HCT 22.9 % (39.0-53.0); HGB 7.3 gm/dL (13.0-17.5); Hypochromasia Slight; Lymphocytes # (A) 0.1 k/uL (1.0-4.8); Lymphocytes % (A) 1 %; MCH 29.7 pg (25.0-35.0); MCHC 31.9 g/dL (31.0-37.0); MCV 93.3 fL (80.0-100.0); Mean Platelet Volume 7.6; Monocytes # (A) 0.4 k/uL (0-1.0); Monocytes % (A) 3 %; Neutrophils # (A) 10.5 k/uL (1.3-7.7); Neutrophils % (A) 95 %; Platelet Count 269 k/uL (150-450); RBC 2.46 m/uL (4.30-5.90); RDW 14.6 % (11.5-15.5)
[2019-11-03 05:31] LABS: African American GFR (CKD) >90 (>60 ml/min/1.73 sqM); Anion Gap 3 mmol/L; Blood Urea Nitrogen 29 mg/dL (9-20); Calcium 7.8 mg/dL (8.4-10.2); Carbon Dioxide 26 mmol/L (22-30); Chloride 111 mmol/L (98-107); Glucose 107 mg/dL (74-99); Non-African American GFR(CKD) 87 (>60 ml/min/1.73 sqM); Sodium 140 mmol/L (137-145)
--- NOTE | 2019-11-03 06:52 | XR ---
EXAMINATION TYPE: XR chest 1V DATE OF EXAM: 11/03/2019 HISTORY: SOB. REFERENCE: Previous study dated 11/02/2019. FINDINGS: The lungs are overinflated. There is improved aeration of both lung bases. The heart is not enlarged. There continue to be bilateral effusions. IMPRESSION: 1. COPD. 2. SMALL, BILATERAL EFFUSIONS.
[2019-11-03] MEDS: BUDESONIDE 1 MG/2 ML NEBU INHALATION SCH ×2 (07:01→20:18)
[2019-11-03] MEDS: NICOTINE 14MG/24HR PATCH TRANSDERM SCH (08:22)
[2019-11-03] MEDS: PANTOPRAZOLE 40 MG/10 ML VIAL IV SCH (08:22)
[2019-11-03] MEDS: metroNIDAZOLE-NS PMX 500 MG in SALINE 1 100ML.BAG IVPB SCH ×2 (08:22→15:50)
[2019-11-03] MEDS: HYDROmorphone 0.5 MG/0.5 ML SYRINGE IVP PRN ×3 (10:04→22:20)
[2019-11-03] MEDS: SODIUM CHLORIDE 0.9% 1,000 ML IV SCH ×2 (10:10→21:47)
[2019-11-03] MEDS: ASPIRIN 81 MG PO SCH (10:11)
[2019-11-03] MEDS: TAMSULOSIN 0.4 MG CAP.ER.24H PO SCH ×2 (10:11→21:47)
--- NOTE | 2019-11-03 11:58 | P.PN ---
Subjective Progress Note Date: 11/03/19 Principal diagnosis: Abdominal pain, possible ischemic colitis. This is an 84-year-old white male with history of severe COPD, gold stage IV, oxygen dependent for many years, known history of cardiomyopathy and LV dysfunction with ejection fraction of 25%. History of coronary artery disease, hypertension, hyperlipidemia, normally sees Dr. Barr on outpatient basis for his underlying COPD. Patient was brought into the ER last night with diffuse abdominal pain of one day duration. Pain was severe and associated with some nausea, but no vomiting. No fever no chills. No melena and no hematemesis. CT of the abdomen and pelvis was consistent with possible colitis, it showed severe wall thickening of the colon extending from the mid transverse colon through the proximal sigmoid colon compatible with colitis. There is also evidence of mild reactive ileus of the stomach and small bowel. No free air or perforation was noted. Chest x-ray showed prominent pulmonary arteries suggestive of pulmonary hypertension, there was also evidence of COPD/emphysema. Patient was admitted, CODE STATUS was apparently verified earlier with the family, patient is DO NOT RESUSCITATE CODE STATUS, however as he was admitted to the ICU, patient was noted to have significant discomfort and he was placed on airvo with FiO2 of 55% and 50 L/m flow. In spite of this the patient was complaining of shortness of breath, and he was extremely restless and agitated. As soon as I evaluated the patient, I recommended Ativan to be given every 4 hours as needed, and recommended to have BiPAP at bedside to be used if necessary. In the meantime the patient is receiving his bronchodilators, and antibiotics in the form of Flagyl, and Rocephin. In the ER, patient apparently received vancomycin, Zosyn, and Levaquin. His antibiotics were ordered by Dr. Nuñez who is admitting physician . Patient was reevaluated today on 11/01/2019, remains in the ICU, he is presently on airvo at 50% FiO2 and 55 L/m flow. Received Ativan earlier, he seems to be quite relaxed, although he was extremely agitated earlier according to the family. Patient seems to be very comfortable, in no distress. His O2 saturation is 100%, hence I have recommended cutting down the FiO2 and titrate accordingly. WBC count today is 15.4 hemoglobin is 7 and electrolytes are normal renal profile is normal lactic acid is normal, chest x-ray showed right basilar atelectasis and small tiny effusion. Doubt pneumonia. Reevaluated today in the ICU on 11/02/2019, patient remains intermittently agitated requiring Ativan, however he is down on airvo to 35% FiO2, and 35 L/m. Chest x-ray is showing mostly atelectatic changes at the bases and patchy opacities, I recommended a trial of BiPAP on this patient for better aeration of the bases of his lungs. Patient is calm, however according to the family he is intermittently waking up and gets extremely agitated. And responds well to Ativan. Labs today showed WBC count of 13.8 hemoglobin is 7.5. Electrolytes and renal profile are normal. Lactic acid normalized to 1.4. Reevaluated today on 11/03/2019, patient remains in the ICU, was placed on BiPAP last night until this morning switched back to airvo at 35% FiO2 is 35 L/m flow. Patient is requiring Ativan to keep him calm. Otherwise he gets extremely agitated. His labs were unremarkable, hemoglobin remains at 7.3, stable. His electrolytes are normal renal profile is normal. Urine culture is positive for Enterobacter aerogenes. Sensitive to ceftriaxone which the patient is presently on. Objective - Vital Signs Vital signs: Vital Signs Temp 98.1 F 11/03/19 08:00 Pulse 90 11/03/19 11:00 Resp 10 L 11/03/19 11:00 BP 135/67 11/03/19 11:00 Pulse Ox 98 11/03/19 11:00 Intake & Output 11/02/19 11/03/19 11/03/19 18:59 06:59 18:59 Intake Total 1200 1000 375 Output Total 1580 445 160 Balance -380 555 215 Weight 51.3 kg 53.2 kg Intake: IV 1200 1000 375 Sodium Chloride 0.9% 1, 1050 75 000 ml @ 125 mls/hr IV . Q8H SD Rx#:[id number] Sodium Chloride 0.9% 1, 825 375 000 ml @ 75 mls/hr IV . [id number] SD Rx#:[id number] cefTRIAXone 1 gm In 50 Sodium Chloride 0.9% 50 ml @ 100 mls/hr IVPB Q24HR SD Rx#:[id number] metroNIDAZOLE-NS PMX 500 100 100 mg In Saline 1 100ml.bag @ 100 mls/hr IVPB Q8HR [facility] Rx#:[id number] Output: Urine 1580 445 160 Other: Voiding Method Indwelling Catheter Indwelling Catheter Indwelling Catheter - Exam Physical Exam: Revealed an 84-year-old white male calm, in no distress. Family is at bedside. Head: Atraumatic, normocephalic. HEENT:[Neck is supple.] [No neck masses.] [No thyromegaly.] [No JVD.] PERRLA, EOMI, no icterus. Chest: [Extremely diminished breath sound bilaterally, no crackles nor rhonchi no wheezes. Symmetrical chest expansion noted..] Cardiac Exam: [Normal S1 and S2, no S3 gallop, no murmur.] Abdomen: [Soft, nontender, no megaly, no rebound, no guarding, normal bowel sounds.] Extremities: [No clubbing, no edema, no cyanosis.] Neurological Exam: Alert and oriented 3, no gross focal neurologic deficits. Psychiatric: Normal mood affect and normal mental status examination.. Lymphatics: No lymphadenopathy. Skin: No rashes. Musculoskeletal significant muscle wasting throughout, no limitation in range of motion - Labs CBC & Chem 7: 11/03/19 04:59 11/03/19 04:59 Labs: Abnormal Lab Results - Last 24 Hours (Table) 11/03/19 11/03/19 Range/Units 04:59 04:59 WBC 11.0 H (3.8-10.6) k/uL RBC 2.46 L (4.30-5.90) m/uL Hgb 7.3 L (13.0-17.5) gm/dL Hct 22.9 L (39.0-53.0) % Neutrophils # 10.5 H (1.3-7.7) k/uL Lymphocytes # 0.1 L (1.0-4.8) k/uL Chloride 111 H (98-107) mmol/L BUN 29 H (9-20) mg/dL Glucose 107 H (74-99) mg/dL Calcium 7.8 L (8.4-10.2) mg/dL Microbiology - Last 24 Hours (Table) 10/30/19 15:14 Urine Culture - Preliminary Urine,Voided Gram Neg Bacilli Enterobacter aerogenes 10/30/19 15:14 Blood Culture - Preliminary Blood No Growth after 72 hours Assessment and Plan Assessment: Impression: 1 acute nonspecific colitis. Possibly ischemic colitis. 2 acute on chronic hypoxic respiratory failure secondary to severe end-stage [employer] D. 3 coronary artery disease and previous stent placement. 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 9 acute urinary tract infection secondary to Enterobacter aerogenes. Recommendation: Continue antibiotics. Continue bronchodilators. Continue IV Solu-Medrol. Continue intermittent BiPAP and airvo Continue Ativan as needed Continue GI and DVT prophylaxis. Today I had a long discussion with family at bedside, and explained to them that considering his overall clinical status, patient clearly has a very poor quality of life, and he is not expected to make much improvement from his baseline. Touch bases with the family to seriously consider comfort care measures. Family would like to discuss this among themselves, and I believe they would be agreeable to comfort care measures but final decision has not been made yet. In the meantime we'll continue treatment plan as outlined above. Prognosis is extremely poor and guarded. If family agrees to comfort care measures, consider transferring the patient out of the ICU to a private bed possibly oncology, and proceed with comfort care measures. Time with Patient: Less than 30
[2019-11-03 12:01] LABS: Glucose,Whole Blood 103 mg/dL (75-99)
--- NOTE | 2019-11-03 12:13 | PN ---
PROGRESS NOTE DATE OF SERVICE: November 03, 2019 Patient is an 84-year-old pleasant white male admitted to the hospital with abdominal pain, diarrhea, and exacerbation of COPD. CT scan showed evidence of colitis, on broad- spectrum antibiotics. Abdominal pain and his diarrhea has resolved. The patient remained sedated on a full liquid diet not eating well as patient is being sedated most of the time for respiratory distress. PHYSICAL EXAMINATION: Vital signs show a blood pressure of 132/86, pulse rate 80. He is on Airvo with a flow rate of 35 L/minute. Oxygen saturation 98%. On physical examination, he is quite sleepy. VITAL SIGNS: Stable. Blood pressure 112/86. HEENT examination unremarkable. Conjunctivae pink. Sclerae anicteric. He has decreased breath sounds bilaterally. ABDOMEN: Soft, nontender, nondistended. Bowel sounds are positive. EXTREMITIES: No pedal edema. SKIN no rashes. NEURO he is quite sedated. LABS: From today WBC 11, hemoglobin 7.3, platelets normal. BUN and creatinine normal. IMPRESSION: 1. Acute onset of abdominal pain and diarrhea. CT scan showed acute colitis, possibly ischemic colitis versus infectious etiology. On broad-spectrum antibiotics with ceftriaxone and metronidazole and symptoms have improved. The abdominal pain and diarrhea have resolved. The patient is on a full liquid diet, tolerating well. 2. Severe chronic obstructive pulmonary disease with exacerbation presently on Airvo, saturating well. 3. History of coronary artery disease, status post stent placement in the past. 4. Right-sided pulmonary hypertension. 5. Anemia with stable hemoglobin. Clinically no evidence of active bleeding. Last hemoglobin 7.5 g/dL. RECOMMENDATIONS: 1. Advance to regular diet. 2. Continue with broad-spectrum antibiotics. 3. At this time we will sign off. 4. Please call us if needed. Thank you for this consultation. MMODL / IJN: [id number] /
[2019-11-03 18:07] LABS: Glucose,Whole Blood 100 mg/dL (75-99)
[2019-11-03] MEDS: ENOXAPARIN 40 MG/0.4 ML SYRINGE SQ SCH (21:47)
[2019-11-03] MEDS: ATORVASTATIN 40 MG TAB PO SCH (21:47)
[2019-11-04 00:31] LABS: Glucose,Whole Blood 160 mg/dL (75-99)
--- NOTE | 2019-11-04 00:50 | P.PN ---
Subjective Progress Note Date: 11/03/19 Principal diagnosis: Acute ischemic colitis This is a pleasant 84-year-old patient of Dr. muir from [place]. Chronic stable medical conditions include congestive heart failure EF 25%, coronary artery disease with stent, hypertension, hyperlipidemia, secondary probably hy pertension. History is obtained by patient's and grandson Doug at the bedside. baseline patient is able to walk a few steps , gets short of breath. Has good mentation. Patient is a small eater. Patient has end-stage COPD. Is now. 4 L of oxygen at home. Sometimes turned up to 5 liters. Patient did smoke heavily in the past. Today patient started having after breakfast, increasing abdominal pain diffuse. Did have a bowel movement. Normally has a bowel movement every day. Abdominal pain became rather severe. Some nausea was present. No fever no chills. Per the ER. Computed tomography scan of the ER showed colitis. Patient also requiring high flow oxygen. Patient blood pressures running low. 10/31/2019 the ICU. Family the bedside. Did tolerate some ice chips.. Did not require any pain medicines of the abdomen. Didn't require Ativan for anxiety. Patient is on Airvo at 50%. IV fluids with 125 mL. 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 Currently on airvo with 50% FiO2. Patient is more awake and oriented today. Family is at bedside. Chest x-ray showed right basilar atelectasis and small effusion. WBC 15.4 and hemoglobin 7.0. Lactic acidosis resolved. No nausea vomiting or abdominal pain or diarrhea. Patient has been afebrile. Patient remained on antibiotics in the form of ceftriaxone. 11/02/2019 Patient is currently on BiPAP. Patient was agitated this morning when he woke up. Patient was given a dose of Ativan. Otherwise leukocytosis improved to 13.8 and hemoglobin is 7.5. Urine culture showed gram-negative bacilli. Currently patient is on ceftriaxone. Patient is afebrile. No nausea vomiting or abdominal pain. 11/03/2019 Patient was switched to airvo at 35% FiO2 today morning. Patient is comfortable. Patient is still agitated when he wakes up. Currently on Ativan when necessary. Leukocytosis is improving with WBC 11 and hemoglobin 7.3 today. Urine culture showed stenotrophomonas and Enterobacter species. Currently being continued on ceftriaxone. Patient has been afebrile. Continued on IV steroids and breathing treatments. Review of systems cannot be done as patient rather tired Current medications reviewed in today's electronic records Objective - Vital Signs Vital signs: Vital Signs Temp 99.1 F 11/03/19 20:00 Pulse 80 11/03/19 21:00 Resp 15 11/03/19 21:00 BP 117/65 11/03/19 21:00 Pulse Ox 99 11/03/19 21:00 Intake & Output 11/03/19 11/03/19 11/04/19 06:59 18:59 06:59 Intake Total 1000 900 150 Output Total 445 480 75 Balance 555 420 75 Weight 53.2 kg Intake: IV 1000 900 150 Sodium Chloride 0.9% 1, 75 000 ml @ 125 mls/hr IV . Q8H SD Rx#:[id number] Sodium Chloride 0.9% 1, 825 900 150 000 ml @ 75 mls/hr IV . [id number] SD Rx#:[id number] metroNIDAZOLE-NS PMX 500 100 mg In Saline 1 100ml.bag @ 100 mls/hr IVPB Q8HR SD Rx#:[id number] Output: Urine 445 480 75 Other: Voiding Method Indwelling Catheter Indwelling Catheter Indwelling Catheter - Exam GENERAL: Laying in bed with Airvo-tired. EYES: Pupils equal. Conjunctiva pale HEENT: External appearance of nose and ears normal, oral cavity grossly normal. NECK: JVD unable to assess,; masses not palpable. HEART: First and second heart sounds are normal; no edema. LUNGS: Respiratory rate increased, decreased breath sounds ABDOMEN: Soft, minimal tenderness, no guarding or rigidity,, liver spleen not palpable, no masses palpable. PSYCH: Very tired. MUSCULAR skeletal: Diffuse fisting her muscles, loss of secretions fact, bony prominences, evidence of OA INVESTIGATIONS, reviewed in the clinical context: White count 24.8, hemoglobin 8.2, potassium 4.8, crit 1.04 Previous testing White count 7.8 hemoglobin 9.6 platelets 429 potassium 4.6 creatinine 1.03 lactic acid 6.7 UA positive for leukoesterase, WBC EKG tracing personally reviewed by me-normal sinus rhythm with some ST segment changes Chest x-ray film personally reviewed by me-hyperinflation, prominent pulmonary artery, no infiltrates Computed tomography scan of the abdomen-severe wall thickening of the colon extending from the mid transverse colon through proximal sigmoid colon - Labs CBC & Chem 7: 11/03/19 04:59 11/03/19 04:59 Labs: Abnormal Lab Results - Last 24 Hours (Table) 11/03/19 11/03/19 11/03/19 Range/Units 04:59 04:59 11:49 WBC 11.0 H (3.8-10.6) k/uL RBC 2.46 L (4.30-5.90) m/uL Hgb 7.3 L (13.0-17.5) gm/dL Hct 22.9 L (39.0-53.0) % Neutrophils # 10.5 H (1.3-7.7) k/uL Lymphocytes # 0.1 L (1.0-4.8) k/uL Chloride 111 H (98-107) mmol/L BUN 29 H (9-20) mg/dL Glucose 107 H (74-99) mg/dL POC Glucose (mg/dL) 103 H (75-99) mg/dL Calcium 7.8 L (8.4-10.2) mg/dL 11/03/19 Range/Units 17:56 WBC (3.8-10.6) k/uL RBC (4.30-5.90) m/uL Hgb (13.0-17.5) gm/dL Hct (39.0-53.0) % Neutrophils # (1.3-7.7) k/uL Lymphocytes # (1.0-4.8) k/uL Chloride (98-107) mmol/L BUN (9-20) mg/dL Glucose (74-99) mg/dL POC Glucose (mg/dL) 100 H (75-99) mg/dL Calcium (8.4-10.2) mg/dL Microbiology - Last 24 Hours (Table) 10/30/19 15:14 Blood Culture - Preliminary Blood No Growth after 96 hours 10/30/19 15:14 Urine Culture - Preliminary Urine,Voided Gram Neg Bacilli Enterobacter aerogenes Assessment and Plan Assessment: -Acute ischemic colitis, with typical location from the transverse colon to the proximal descending colon -Acute COPD exacerbation and an ex-smoker, slow to respond. Patient is on oxygen 4 L nausea cannula. 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 Per grossly remains guarded. With clear liquids and advance as tolerated. Increase activity.. Continue with bronchodilators, IV Solu-Medrol. On IV ceftriaxone. Continue with Ativan when necessary. Urine culture showed stenotrophomonas and Enterobacter. Patient's condition remained guarded. Time with Patient: Greater than 30
[2019-11-04] MEDS: LORazepam 2 MG/ML INJ IV PRN ×2 (01:10→09:58)
[2019-11-04] MEDS: IPRATROPIUM-ALBUTEROL 3 ML NEB INHALATION SCH ×3 (03:32→13:15)
[2019-11-04] MEDS: metroNIDAZOLE-NS PMX 500 MG in SALINE 1 100ML.BAG IVPB SCH (04:13)
[2019-11-04] MEDS: methylPREDNISolone SOD SUCCI 40 MG/ML 1 ML VIAL IV SCH (04:15)
[2019-11-04] MEDS: SODIUM CHLORIDE 0.9% 1,000 ML IV SCH ×2 (04:18→06:03)
[2019-11-04 05:45] LABS: Basophils % (A) 0 %; Eosinophils % (A) 0 %; HCT 22.4 % (39.0-53.0); Hypochromasia Moderate; Lymphocytes # (A) 0.2 k/uL (1.0-4.8); Lymphocytes % (A) 2 %; MCH 29.4 pg (25.0-35.0); MCHC 31.2 g/dL (31.0-37.0); MCV 94.1 fL (80.0-100.0); Mean Platelet Volume 6.8; Monocytes # (A) 0.4 k/uL (0-1.0); Monocytes % (A) 5 %; Neutrophils # (A) 8.1 k/uL (1.3-7.7); Neutrophils % (A) 92 %; Platelet Count 268 k/uL (150-450); RBC 2.38 m/uL (4.30-5.90); RDW 14.6 % (11.5-15.5); WBC 8.8 k/uL (3.8-10.6)
[2019-11-04 05:59] LABS: African American GFR (CKD) >90 (>60 ml/min/1.73 sqM); Anion Gap 2 mmol/L; Blood Urea Nitrogen 28 mg/dL (9-20); Calcium 7.6 mg/dL (8.4-10.2); Carbon Dioxide 25 mmol/L (22-30); Chloride 115 mmol/L (98-107); Glucose 81 mg/dL (74-99); Non-African American GFR(CKD) 90 (>60 ml/min/1.73 sqM); Potassium 4.2 mmol/L (3.5-5.1); Sodium 142 mmol/L (137-145)
[2019-11-04] MEDS: HYDROmorphone 0.5 MG/0.5 ML SYRINGE IVP PRN (06:07)
[2019-11-04 06:36] LABS: Glucose,Whole Blood 86 mg/dL (75-99)
--- NOTE | 2019-11-04 07:09 | XR ---
EXAMINATION TYPE: XR chest 1V DATE OF EXAM: 11/04/2019 COMPARISON: 11/03/2019 HISTORY: Shortness of breath TECHNIQUE: Single frontal view of the chest is obtained. FINDINGS: There are bibasilar opacities, increasing from the prior. Pleural effusions on the costoph renic angles. Underlying emphysematous change. Cardia mediastinal silhouette is within normal limits. Diffuse osseous demineralization. IMPRESSION: Increasing bibasilar opacities partially related to pleural effusions and atelectasis. S uperimposed pneumonia is possible.
[2019-11-04] MEDS: BUDESONIDE 1 MG/2 ML NEBU INHALATION SCH (09:29)
[2019-11-04] MEDS: NICOTINE 14MG/24HR PATCH TRANSDERM SCH (09:59)
--- NOTE | 2019-11-04 10:36 | P.PN ---
Subjective Progress Note Date: 11/04/19 Principal diagnosis: Acute abdominal pain, possible ischemic colitis, acute on chronic hypoxic rest she failure related to severe end-stage COPD This is an 84-year-old white male with history of severe COPD, gold stage IV, oxygen dependent for many years, known history of cardiomyopathy and LV dysfunction with ejection fraction of 25%. History of coronary artery disease, hypertension, hyperlipidemia, normally sees Dr. Barr on outpatient basis for his underlying COPD. Patient was brought into the ER last night with diffuse abdominal pain of one day duration. Pain was severe and associated with some nausea, but no vomiting. No fever no chills. No melena and no hematemesis. CT of the abdomen and pelvis was consistent with possible colitis, it showed severe wall thickening of the colon extending from the mid transverse colon through the proximal sigmoid colon compatible with colitis. There is also evidence of mild reactive ileus of the stomach and small bowel. No free air or perforation was noted. Chest x-ray showed prominent pulmonary arteries suggestive of pulmonary hypertension, there was also evidence of COPD/emphysema. Patient was admitted, CODE STATUS was apparently verified earlier with the family, patient is DO NOT RESUSCITATE CODE STATUS, however as he was admitted to the ICU, patient was noted to have significant discomfort and he was placed on airvo with FiO2 of 55% and 50 L/m flow. In spite of this the patient was complaining of shortness of breath, and he was extremely restless and agitated. As soon as I evaluated the patient, I recommended Ativan to be given every 4 hours as needed, and recommended to have BiPAP at bedside to be used if necessary. In the meantime the patient is receiving his bronchodilators, and antibiotics in the form of Flagyl, and Rocephin. In the ER, patient apparently received vancomycin, Zosyn, and Levaquin. His antibiotics were ordered by Dr. Nuñez who is admitting physician . Patient was reevaluated today on 11/01/2019, remains in the ICU, he is presently on airvo at 50% FiO2 and 55 L/m flow. Received Ativan earlier, he seems to be quite relaxed, although he was extremely agitated earlier according to the family. Patient seems to be very comfortable, in no distress. His O2 saturati on is 100%, hence I have recommended cutting down the FiO2 and titrate accordingly. WBC count today is 15.4 hemoglobin is 7 and electrolytes are normal renal profile is normal lactic acid is normal, chest x-ray showed right basilar atelectasis and small tiny effusion. Doubt pneumonia. Reevaluated today in the ICU on 11/02/2019, patient remains intermittently agitated requiring Ativan, however he is down on airvo to 35% FiO2, and 35 L/m. Chest x-ray is showing mostly atelectatic changes at the bases and patchy opacities, I recommended a trial of BiPAP on this patient for better aeration of the bases of his lungs. Patient is calm, however according to the family he is intermittently waking up and gets extremely agitated. And responds well to Ativan. Labs today showed WBC count of 13.8 hemoglobin is 7.5. Electrolytes and renal profile are normal. Lactic acid normalized to 1.4. Reevaluated today on 11/03/2019, patient remains in the ICU, was placed on BiPAP last night until this morning switched back to airvo at 35% FiO2 is 35 L/m flow. Patient is requiring Ativan to keep him calm. Otherwise he gets extremely agitated. His labs were unremarkable, hemoglobin remains at 7.3, stable. His electrolytes are normal renal profile is normal. Urine culture is positive for Enterobacter aerogenes. Sensitive to ceftriaxone which the patient is presently on. On 11/04/2019 patient seen in follow-up in intensive care unit, he is pretty will unresponsive, remains on Airvo at 30 L/m, or FiO2 of 35%, pulse ox of 97%, afebrile, hemodynamically patient is stable, does not appear to be in any acute distress. He remains on empiric antibiotics in the form of Rocephin and Flagyl, IV steroids, nebulized bronchodilators. Urine culture revealed stenotrophomonas maltophilia and enterobacter aerogenes. Blood culture has shown no growth. His labs have been reviewed, white blood cell is trending down, down to 8.8 on today's labs, hemoglobin is 7.0, sodium is 142, potassium is 4.2, chloride is 1:15, BUN is 20 creatinine 0.63. Patient has been receiving Dilantin and and Ativan for anxiety, and pain. Not been able to eat anything in view of his decreased mentation, he is receiving IV hydration with plan and was seen at a rate of 75 ML per hour. CODE STATUS is DO NOT RESUSCITATE and we're told family is awaiting the arrival of his grandson from [place] this evening to proceed with comfort care protocol. Today's chest x-ray has been reviewed increasing bibasilar opacities were noted related to pleural effusions and atelectasis. Objective - Vital Signs Vital signs: Vital Signs Temp 97.7 F 11/04/19 04:00 Pulse 82 11/04/19 07:00 Resp 11 L 11/04/19 07:00 BP 129/63 11/04/19 07:00 Pulse Ox 97 11/04/19 07:00 Intake & Output 11/03/19 11/04/19 11/04/19 18:59 06:59 18:59 Intake Total 900 900 75 Output Total 480 515 30 Balance 420 385 45 Weight 51.6 kg Intake: IV 900 900 75 Sodium Chloride 0.9% 1, 900 900 75 000 ml @ 75 mls/hr IV . [id number] [facility] Rx#:[id number] Output: Urine 480 515 30 Other: Voiding Method Indwelling Catheter Indwelling Catheter - Exam GENERAL EXAM: Lethargic, poorly responsive, 84-year-old frail white male, on Airvo at 30 l/min and 35%, comfortable in no apparent distress. HEAD: Normocephalic/atraumatic. EYES: Normal reaction of pupils, equal size. Conjunctiva pink, sclera white. NOSE: Clear with pink turbinates. THROAT: No erythema or exudates. NECK: No masses, no JVD, no thyroid enlargement, no adenopathy. CHEST: No chest wall deformity. Symmetrical expansion. LUNGS: Equal air entry with no crackles, wheeze, rhonchi or dullness. CVS: Regular rate and rhythm, normal S1 and S2, no gallops, no murmurs, no rubs ABDOMEN: Soft, nontender. No hepatosplenomegaly, normal bowel sounds, no guarding or rigidity. EXTREMITIES: No clubbing, no edema, no cyanosis, 2+ pulses and upper and lower extremities. MUSCULOSKELETAL: Muscle strength and tone normal. SPINE: No scoliosis or deformity SKIN: No rashes CENTRAL NERVOUS SYSTEM: Unresponsive. No focal deficits, tone is normal in all 4 extremities. - Labs CBC & Chem 7: 11/04/19 05:32 11/04/19 05:32 Labs: Abnormal Lab Results - Last 24 Hours (Table) 12/08/19 12/08/19 12/09/19 Range/Units 11:49 17:56 00:20 RBC (4.30-5.90) m/uL Hgb (13.0-17.5) gm/dL Hct (39.0-53.0) % Neutrophils # (1.3-7.7) k/uL Lymphocytes # (1.0-4.8) k/uL Chloride (98-107) mmol/L BUN (9-20) mg/dL Creatinine (0.66-1.25) mg/dL POC Glucose (mg/dL) 103 H 100 H 160 H (75-99) mg/dL Calcium (8.4-10.2) mg/dL 11/04/19 11/04/19 Range/Units 05:32 05:32 RBC 2.38 L (4.30-5.90) m/uL Hgb 7.0 L (13.0-17.5) gm/dL Hct 22.4 L (39.0-53.0) % Neutrophils # 8.1 H (1.3-7.7) k/uL Lymphocytes # 0.2 L (1.0-4.8) k/uL Chloride 115 H (98-107) mmol/L BUN 28 H (9-20) mg/dL Creatinine 0.63 L (0.66-1.25) mg/dL POC Glucose (mg/dL) (75-99) mg/dL Calcium 7.6 L (8.4-10.2) mg/dL Microbiology - Last 24 Hours (Table) 10/30/19 15:14 Urine Culture - Final Urine,Voided Stenotrophomonas maltophilia Enterobacter aerogenes 10/30/19 15:14 Blood Culture - Preliminary Blood No Growth after 96 hours Assessment and Plan Plan: Assessment: #1. Acute nonspecific colitis, possibly ischemic colitis #2. Acute on chronic hypoxic rest or a failure secondary to severe endstage COPD #3. Coronary artery disease and previous stent placement #4. History of ischemic cardiomyopathy and LV dysfunction #5. Chronic kidney disease stage II #6. Secondary pulmonary hypertension #7. Benign essential hypertension #8. History of dyslipidemia #9. Acute urinary tract infection secondary to Enterobacter aerogenes and Stenotrophomas maltophilia Plan: Clinically patient has had little improvement overall, maintenance on high flow oxygen, his mentation is diminished, he appears to be in no acute distress currently, overall prognosis is extremely guarded, patient's CODE STATUS is DO NOT RESUSCITATE and patient's family has decided to proceed with comfort care measures once patient's grandson arrives from [place] this evening. Until then continue supportive treatment. Proceed with comfort care protocol once the family arrives I performed a history & physical examination of the patient and discussed their management with my nurse practitioner, Roberta Fischer. I reviewed the nurse practitioner's note and agree with the documented findings and plan of care. Lung sounds are positive for diminished breath sounds. The findings and the impression was discussed with the patient. I attest to the documentation by the nurse practitioner. Time with Patient: Less than 30
[2019-11-04] MEDS ORDERED: ATROPINE OPHTH SOLN 1% 5ML BTL SUBLINGUAL PRN (11:51)
[2019-11-04] MEDS ORDERED: MORPHINE SULFATE 2 MG/ML SYRINGE IV PRN (11:51)
[2019-11-04] MEDS ORDERED: SCOPOLAMINE 1.5MG/72HR PATCH TRANSDERM SCH (12:00)
[2019-11-04] MEDS ORDERED: methylPREDNISolone SOD SUCCI 40 MG/ML 1 ML VIAL IV SCH (12:00)
[2019-11-04] MEDS: MORPHINE SULFATE (100 MG/2 ML) 100 MG in SODIUM CHLORIDE 0.9% 100 ML IV SCH (12:19)
[2019-11-04 13:10] VITALS: BP 128/65; TEMP 97.8
--- NOTE | 2019-11-04 14:33 | P.PN ---
Subjective patient was admitted for a acutehypoxic and hypercapnic respiratory failure secondary to COPD exacerbation and heart failure exacerbation. Patient did not have any significant improvement, by the time I evaluated the patient patient was already made comfort care patient is on IV morphine drip. Patient survives longer than [facility] hospice was be consulted as per family. Patient is presently in hypoplastic and enoxacin lying comfortably on the bed doesn't appear to be in pain respiratory rate is around 10-12 Objective - Vital Signs Vital signs: Vital Signs Temp 97.8 F 11/04/19 08:00 Pulse 88 11/04/19 12:00 Resp 18 11/04/19 12:00 BP 128/65 11/04/19 12:00 Pulse Ox 100 11/04/19 12:00 Intake & Output 11/03/19 11/04/19 11/04/19 18:59 06:59 18:59 Intake Total 900 900 450 Output Total 480 515 100 Balance 420 385 350 Weight 51.6 kg Intake: IV 900 900 450 Sodium Chloride 0.9% 1, 900 900 450 000 ml @ 75 mls/hr IV . [id number] [facility] Rx#:[id number] Output: Urine 480 515 100 Other: Voiding Method Indwelling Catheter Indwelling Catheter Indwelling Catheter - Exam PHYSICAL EXAMINATION: GENERAL: on morphine drip comfortable CARDIOVASCULAR: S1 and S2 present. No murmurs, rubs, or gallops. PULMONARY: decreased breath sounds bilaterally ABDOMEN: Soft, nontender, MUSCULOSKELETAL: No joint swelling or deformity. EXTREMITIES: No cyanosis, clubbing, or pedal edema. . - Labs CBC & Chem 7: 11/04/19 05:32 11/04/19 05:32 Labs: Abnormal Lab Results - Last 24 Hours (Table) 11/03/19 11/04/19 11/04/19 Range/Units 17:56 00:20 05:32 RBC (4.30-5.90) m/uL Hgb (13.0-17.5) gm/dL Hct (39.0-53.0) % Neutrophils # (1.3-7.7) k/uL Lymphocytes # (1.0-4.8) k/uL Chloride 115 H (98-107) mmol/L BUN 28 H (9-20) mg/dL Creatinine 0.63 L (0.66-1.25) mg/dL POC Glucose (mg/dL) 100 H 160 H (75-99) mg/dL Calcium 7.6 L (8.4-10.2) mg/dL 11/04/19 Range/Units 05:32 RBC 2.38 L (4.30-5.90) m/uL Hgb 7.0 L (13.0-17.5) gm/dL Hct 22.4 L (39.0-53.0) % Neutrophils # 8.1 H (1.3-7.7) k/uL Lymphocytes # 0.2 L (1.0-4.8) k/uL Chloride (98-107) mmol/L BUN (9-20) mg/dL Creatinine (0.66-1.25) mg/dL POC Glucose (mg/dL) (75-99) mg/dL Calcium (8.4-10.2) mg/dL Microbiology - Last 24 Hours (Table) 10/30/19 15:14 Urine Culture - Final Urine,Voided Stenotrophomonas maltophilia Enterobacter aerogenes 10/30/19 15:14 Blood Culture - Preliminary Blood No Growth after 96 hours Assessment and Plan Plan: -Acute ischemic colitis, with typical location from the transverse colon to the proximal descending colon -Acute COPD exacerbation and an ex-smoker, -Acute on chronic hypoxic respiratory failure from above, slow to respond -Coronary artery disease with a prior history of stent -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
--- NOTE | 2019-11-04 14:54 | CDI ---
Documentation Clarification Form Date: 11/04/2019 2:44:30 PM From: Veronica EllisQueenTED [place], CCDS Admit Date: 10/30/2019 4:24:00 PM Patient Name: Cornelius Posada Visit Number: [id number] Discharge Date: ATTENTION: The Clinical Documentation Specialists (CDI) and [facility] Coding Staff appreciate your assistance in clarifying documentation. Please respond to the clarification below the line at the bottom and electronically sign. The CDI & [facility] Coding staff will review the response and follow-up if needed. Please note: Queries are made part of the Legal Health Record. If you have any questions, please contact the author of this message via ITS. Dr. Jean-Paul Nuñez or covering attending physician: Per the History & Physical: " Patient was explained his advanced condition his and states lung condition coronary artery disease malnutrition with a BMI of 13. Patient does express understanding of his current prognosis. He is agreed to proceed with her DO NOT RESUSCITATE CODE STATUS. History/Risk Factors: COPD with home O2 4Lnc, Hypertension, Hyperlipidemia, CAD w/stent, CKD II, former smoker. Clinical Indicators: Presented with abdominal pain, small eater, has end stage COPD. CT abdomen & pelvis showed colitis. Admit with Sepsis, UTI & possible ischemic colitis. Labs: WBC 17.8, Hgb 9.6, Neut 16.7, APTT 19.5, Na 131, Glucose 112, Lactic Acid 6.7 - 32. - 3.1; Mag 2.4, total protein 5.8, albumin 3.5. BMI: 17.8 Nutritional assessment: Low BMI, Poor intake 0-25%, Underweight. Treatment: Nutritional supplements: Magic cups, INH Albuterol, IV Solumedrol, IV fluid bolus, IV Fentanyl, IV Rocephin, IV fluid bolus, IV Zosyn, IV Vancomycin, IV Dilaudid. In your professional opinion, can you please clarify if these findings signify one of the following conditions? Mild Protein-Calorie Malnutrition Moderate Protein-Calorie Malnutrition Severe Protein-Calorie Malnutrition Other condition, please specify Unable to determine (Last Revision: May 2019) Probable moderate protein calorie malnutrition MTDD
[2019-11-05] MEDS: MORPHINE SULFATE (100 MG/2 ML) 100 MG in SODIUM CHLORIDE 0.9% 100 ML IV SCH (07:42)
[2019-11-05] MEDS: NICOTINE 14MG/24HR PATCH TRANSDERM SCH (08:04)
[2019-11-05 08:20] VITALS: PULSE 56; RESP 5
--- NOTE | 2019-11-05 09:11 | PN ---
PROGRESS NOTE PULMONARY/CRITICAL CARE PROGRESS NOTE: DATE OF SERVICE: November 05, 2019 This is an 84-year-old gentleman with a history of nonspecific colitis/ischemic colitis, chronic hypoxemic respiratory failure secondary to severe COPD, CAD with previous stent placement, ischemic cardiomyopathy with left ventricular dysfunction, stage 2 chronic kidney disease, secondary pulmonary hypertension, benign essential hypertension, hyperlipidemia, and acute urinary tract infection secondary to Enterobacter aerogenes and Stenotrophomonas maltophilia. Currently, the patient has been transitioned over to O2 at 3 L by nasal cannula. Yesterday he was on AIRVO. In addition, he is on morphine sulfate at 4.5 mg/hour. His respiratory rate is about 5 to 6 breaths per minute. The patient was a DNR. They are awaiting for family members to come in to make him a comfort measures only. The family still feels strongly about their decision to transition him to comfort measures. Anyway, the patient had an uneventful night according to the nurse. He is unresponsive. PHYSICAL EXAMINATION: VITAL SIGNS: Current vital signs include a temperature of 97.8, heart rate of 56, respiratory rate of 6 breaths per minute, and a saturation on 3 L at 76%. GENERAL: Appears in no acute distress. He is nonresponsive to verbal stimuli or painful stimuli. His respiratory rate IS about 5 to6 breaths per minute. HEENT: Examination is grossly unremarkable. Nasal O2 in place. NECK: Supple. Full range of motion. No adenopathy. Neck veins are flat. CARDIOVASCULAR: Examination reveals regular rhythm and rate. Heart rate about 60 beats per minute. It is regular. Heart sounds are distant. No distinct murmur. LUNGS: Reveal severely diminished breath sounds. A few scattered bilateral rhonchi noted. No wheezes or crackles. ABDOMEN: Soft. Bowel sounds are not noted. EXTREMITIES: Are intact. Minimal edema. SKIN: Without rash. NEUROLOGIC: Examination reveals the patient to be in a deep coma. He does not respond to verbal or painful stimuli. He is currently still breathing at about 5 to 6 breaths per minute. LAB DATA: No lab data from today. From yesterday, white count was 8.8, hemoglobin 7, hematocrit 22.4, platelet count 268,000. Also from yesterday, sodium 142, potassium 4.2 chloride 115, CO2 is 25. Anion gap is 2. BUN and creatinine were 28 and 0.63. Calcium was 7.6. Microbiologic study showed urine which was positive for Stenotrophomonas maltophilia and Enterobacter aerogenes from October 30. No chest x-ray to speak of. MEDICATIONS: Medications are reviewed. Currently, the patient is on Tylenol, atropine ophthalmic sublingual, Ativan p.r.n., morphine at 4.5 mg an hour, Narcan, nicotine patch, Zofran and scopolamine patch. ASSESSMENT: 1. Acute nonspecific colitis, possibly ischemic colitis. 2. Acute on chronic hypoxemic respiratory failure secondary to severe/end-stage chronic obstructive pulmonary disease. 3. Coronary artery disease with previous stent placement. 4. History of ischemic cardiomyopathy and left ventricular dysfunction. 5. Stage 2 chronic kidney disease. 6. Secondary pulmonary hypertension. 7. Benign essential hypertension. 8. History of hyperlipidemia. 9. Acute urinary tract infection secondary to Enterobacter aerogenes and Stenotrophomonas maltophilia. PLAN: The patient is currently on a morphine drip of 4.5 mg an hour. The patient is receiving O2 at 3 L by nasal cannula. No additional recommendations are made. We will continue to follow. The patient has been made comfort measures only. No additional recommendations are made. Will try to find a bed on the general medical floor for the patient. Additional recommendations and suggestions forthcoming. Pastoral services have been contacted. MMODL / IJN: [id number] / NETTA
[2019-11-05 10:08] VITALS: BMI 17.8
--- NOTE | 2019-11-07 12:27 | CDI ---
Documentation Clarification Form Date: 11/07/19 From: Chelo Rodríguez Phone: If you have a question about this query, please contact Joselyn Porter [employer] at [phone] between 8am and 5pm. Admit Date: 10/30/19 Discharge Date: 11/05/19 Patient Name: Cornelius Posada Visit Number: [id number] ATTENTION: The Clinical Documentation Specialists (CDI) and [facility] Coding Staff appreciate your assistance in clarifying documentation. Please respond to the clarification below the line at the bottom and electronically sign. The CDI & [facility] Coding staff will review the response and follow-up if needed. Please note: Queries are made part of the Legal Health Record. If you have any questions, please contact the author of this message via ITS. Dear Dr. Maurice Wallace , Can you please dictate the /Discharge Summary and include the likely/preliminary cause of ? Thank you for your assistance. MTDD
--- NOTE | 2019-11-07 12:35 | CDI ---
Documentation Clarification Form Date: 11/07/19 From: Chelo Rodríguez Phone: If you have a question about this query, please contact Joselyn Porter, Body Masker at [phone] between 8am and 5pm. Admit Date: 10/30/19 Discharge Date: 10/1019 Patient Name: Cornelius Posada Visit Number: [id number] ATTENTION: The Clinical Documentation Specialists (CDI) and [facility] Coding Staff appreciate your assistance in clarifying documentation. Please respond to the clarification below the line at the bottom and electronically sign. The CDI & [facility] Coding staff will review the response and follow-up if needed. Please note: Queries are made part of the Legal Health Record. If you have any questions, please contact the author of this message via ITS. Dear Dr. Jean-Paul Nuñez, The diagnosis sepsis was documented in the ED Note, but is not noted in subsequent documentation. History/Risk Factors: COPD, CHF, Hypertensive heart & CKD II, Clinical Indicators: WBC-17.8, neutrophils-13.7, lactic acid-6.7, lactic acid sepsis Rflx-yes Treatment: IV Rocephin, IV Vanco, IV Zosyn, IV Levaquin, IV fluids, Please clarify if the sepsis was Present/treated/active this admission Ruled out Other, please specify Clinically unable to determine No sepsis MTDD
--- NOTE | 2019-11-17 15:32 | P.DS ---
Providers Date of admission: 10/30/19 16:24 Expected date of discharge: 11/05/19 Attending physician: Jean-Paul Nuñez Consults: 10/30/19 16:25 Consult Physician Routine Consulting Provider: Wang Moura Consult Reason/Comments: COPD, sepsis, ICU management Do you want consulting provider notified?: Already Contacted 10/30/19 19:46 Consult Physician Routine Consulting Provider: Tisha Freeman Consult Reason/Comments: Colitis Do you want consulting provider notified?: Yes Primary care physician: Shorty Desai [facility] Hospital Course: Patient was admitted for COPD exacerbation patient was subsequently made hospice because of his extreme poor prognosis advanced COPD and age patient subsequently on 05 of November please refer to nursing documentation for time of and primary cause of is COPD Patient Condition at Discharge: Poor Plan - Discharge Summary Discharge Rx Participant: No New Discharge Prescriptions: No Action Nitroglycerin Sl Tabs [Nitrostat] 0.4 mg SUBLINGUAL Q5M PRN PRN Reason: Chest Pain Atenolol 12.5 mg PO DAILY Budesonide [Pulmicort] 0.5 mg INHALATION RT-BID Atorvastatin [Lipitor] 40 mg PO HS Albuterol Inhaler [Ventolin Hfa Inhaler] 1 - 2 puff INHALATION RT-Q6H PRN PRN Reason: Shortness Of Breath Cholecalciferol (Vitamin D3) [Vitamin D3] 2,000 unit PO DAILY Lisinopril [Zestril] 5 mg PO DAILY Calcium Carbonate [Calcium] 600 mg PO DAILY Acetaminophen Tab [Tylenol Tab] 650 mg PO Q4H PRN PRN Reason: Fever And/ Or Pain Aspirin 81 mg PO DAILY Tamsulosin [Flomax] 0.4 mg PO BID predniSONE 10 mg PO DAILY Umeclidinium [place] [Incruse Ellipta] 1 puff INHALATION RT-DAILY Formoterol Fumarate [Perforomist] 20 mcg INHALATION RT-BID Albuterol Nebulized [Ventolin Nebulized] 2.5 mg INHALATION RT-QID PRN PRN Reason: Shortness Of Breath Discharge Medication List Atenolol 12.5 mg PO DAILY 01/30/17 [History] Nitroglycerin Sl Tabs [Nitrostat] 0.4 mg SUBLINGUAL Q5M PRN 01/30/17 [History] Budesonide [Pulmicort] 0.5 mg INHALATION RT-BID 05/24/17 [History] Atorvastatin [Lipitor] 40 mg PO HS 11/21/17 [History] Albuterol Inhaler [Ventolin Hfa Inhaler] 1 - 2 puff INHALATION RT-Q6H PRN 06/28/18 [History] Calcium Carbonate [Calcium] 600 mg PO DAILY 07/21/18 [History] Cholecalciferol (Vitamin D3) [Vitamin D3] 2,000 unit PO DAILY 07/21/18 [History] Lisinopril [Zestril] 5 mg PO DAILY 07/21/18 [History] Acetaminophen Tab [Tylenol Tab] 650 mg PO Q4H PRN 09/05/18 [History] Aspirin 81 mg PO DAILY 09/05/18 [History] Tamsulosin [Flomax] 0.4 mg PO BID 10/09/18 [History] predniSONE 10 mg PO DAILY 11/25/18 [History] Albuterol Nebulized [Ventolin Nebulized] 2.5 mg INHALATION RT-QID PRN 10/30/19 [History] Formoterol Fumarate [Perforomist] 20 mcg INHALATION RT-BID 10/30/19 [History] Umeclidinium [place] [Incruse Ellipta] 1 puff INHALATION RT-DAILY 10/30/19 [History] Follow up Appointment(s)/Referral(s): Shorty Desai MD [Primary Care Provider] - 1-2 days Discharge Disposition: - Preliminary Cause of Preliminary Cause of : COPD
--- NOTE | 2019-12-02 06:41 | CDI ---
Documentation Clarification Form Date: 12/02/19 From: Chelo Rodríguez Phone: If you have a question about this query, please contact Joselyn Porter, Freight Team Associate at [phone] between 8am and 5pm. Admit Date: 10/30/19 Discharge Date: 11/05/19 Patient Name: Cornelius Posada Visit Number: [id number] ATTENTION: The Clinical Documentation Specialists (CDI) and [facility] Coding Staff appreciate your assistance in clarifying documentation. Please respond to the clarification below the line at the bottom and electronically sign. The CDI & [facility] Coding staff will review the response and follow-up if needed. Please note: Queries are made part of the Legal Health Record. If you have any questions, please contact the author of this message via ITS. Dear Dr. Maurice Dunbar, Documentation of emphysema is documented in the CXR's on 10/31, 11/03, 11/04. The CXR results were documented in Dr Moura's consult and PN's and Dr Espinoza's 11/04 PN. 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 Vital Signs/Pulse Oximetry: T-97.4, P-54, R-18/39, BP-88/44, O2 Sat-91/84 (NC 3L) Lung and Respiratory Assessment: Respiratory rate increased, not able to speak in full sentences, accessory muscle working, AIRVO in place. Treatment: High flow oxygen, nebulizer bronchodilators, IV & inhaled steroids, IV antibiotics In your professional opinion, can you please clarify if the above findings and treatment signify any of the following? Acute Exacerbation of Chronic Obstructive Pulmonary Disease (COPD) Emphysema Other condition, please specify Unable to determine Patient was admitted for COPD exacerbation but I only managed hospice on this patient MTDD
== END 2019-11-05 10:13 | disposition expired | DRG 393 ==
LOC: EC 14:41 → 3SCARD 16:24 → 2SICU 20:38
PROVIDERS: ADMIT Hospitalist; ATTEND Hospitalist
PROC: 5A09457 Assistance with Respiratory Ventilation, 24-96 Consecutive Hours, Continuous Positive Airway Pressure (ICD-10-PCS; principal; 2019-11-02)
DX: K55.039 Acute (reversible) ischemia of large intestine, extent unspecified (principal); J96.21 Acute and chronic respiratory failure with hypoxia; J96.22 Acute and chronic respiratory failure with hypercapnia; R40.2114 Coma scale, eyes open, never, 24 hours or more after hospital admission; E44.0 Moderate protein-calorie malnutrition; E87.2 Acidosis; E87.1 Hypo-osmolality and hyponatremia; I13.0 Hypertensive heart and chronic kidney disease with heart failure and stage 1 through stage 4 chronic kidney disease, or unspecified chronic kidney disease; I50.22 Chronic systolic (congestive) heart failure; J44.1 Chronic obstructive pulmonary disease with (acute) exacerbation; K56.7 Ileus, unspecified; N39.0 Urinary tract infection, site not specified; J98.11 Atelectasis; Z68.1 Body mass index [BMI] 19.9 or less, adult; Z66 Do not resuscitate; Z51.5 Encounter for palliative care; I95.9 Hypotension, unspecified; I27.29 Other secondary pulmonary hypertension; F03.90 Unspecified dementia, unspecified severity, without behavioral disturbance, psychotic disturbance, mood disturbance, and anxiety; I25.5 Ischemic cardiomyopathy; D64.9 Anemia, unspecified; B96.89 Other specified bacterial agents as the cause of diseases classified elsewhere; N18.2 Chronic kidney disease, stage 2 (mild); R40.2364 Coma scale, best motor response, obeys commands, 24 hours or more after hospital admission; R40.2254 Coma scale, best verbal response, oriented, 24 hours or more after hospital admission; E78.5 Hyperlipidemia, unspecified; I25.10 Atherosclerotic heart disease of native coronary artery without angina pectoris; I25.2 Old myocardial infarction; F41.9 Anxiety disorder, unspecified; R53.81 Other malaise; Z99.81 Dependence on supplemental oxygen; Z79.51 Long term (current) use of inhaled steroids; Z79.82 Long term (current) use of aspirin; Z79.52 Long term (current) use of systemic steroids; Z79.899 Other long term (current) drug therapy; Z87.891 Personal history of nicotine dependence; Z87.01 Personal history of pneumonia (recurrent); Z86.19 Personal history of other infectious and parasitic diseases; Z95.5 Presence of coronary angioplasty implant and graft; Z98.42 Cataract extraction status, left eye; Z98.41 Cataract extraction status, right eye; Z80.1 Family history of malignant neoplasm of trachea, bronchus and lung; Z82.49 Family history of ischemic heart disease and other diseases of the circulatory system; Z82.3 Family history of stroke
CPT/HCPCS: 36415; 71045; 71046; 74018; 74177; 80048; 80053; 81001; 83605; 83735; 85025; 85610; 85730; 87040; 87077; 87086; 87186; 93005; 94640; 94660; 96361; 96365; 96367; 96368; 96374; 96375; 96376; 99291